=== PATIENT | female | born 1995 | race Caucasian/White ===

== ENCOUNTER 2022-03-31 09:37 | Outpatient (CLI) | payer BC, SELFPAY ==
--- NOTE | 2022-03-31 09:45 | CRLHL7_ITS ---
For Patients: As a result of the Century Cures Act, medical imaging exams and procedure reports are released immediately into your electronic medical record. You may view this report before your referring provider. If you have questions, please contact your health care provider. CLINICAL HISTORY: First trimester screening. TECHNIQUE: Real time solorio scale imaging of the fetus was performed using a transabdominal approach. FINDINGS: Sonographic imaging demonstrates a twin living intrauterine gestation. TWIN A: The fetus demonstrates a regular cardiac rate measuring 147 beats per minute. The crown rump length measurement of 7.5 cm corresponds to a gestation of 13 weeks 4 days. A nuchal translucency measurement of 2.1 mm was obtained for screening purposes. TWIN B: The fetus demonstrates a regular cardiac rate measuring 145 beats per minute. The crown rump length measurement of 7.6 cm corresponds to a gestation of 13 weeks 5 days. A nuchal translucency measurement of 2.0 mm was obtained for screening purposes. IMPRESSION: Nuchal translucency measurement obtained for first trimester screen. Dictated by Nba Siu MD @ 03/31/2022 11:56:44 AM (Electronically Signed)
== END 2022-03-31 09:38 | disposition home or self-care (01) ==
LOC: US 09:39
PROVIDERS: Visit Provider Advanced Practice Midwife
DX: O09.511 Supervision of elderly primigravida, first trimester (principal); O30.049 Twin pregnancy, dichorionic/diamniotic, unspecified trimester; Z3A.13 13 weeks gestation of pregnancy
CPT/HCPCS: 36415; 76801; 76802; 76813; 76814; 84163; 84702

== ENCOUNTER 2022-05-12 17:05 | Outpatient (CLI) | payer BC, SELFPAY ==
--- OUTSIDE RECORDS SUMMARY | 2022-05-12 17:07 | XMS_ITS | Encounter Summary ---
:1995 Author Organization [facility] Address [address] [place] [address] Care Team Providers Name Role Phone Elsewhere, Pcp Primary Care Provider Unavailable Encounter Details Date Type Department Care Team Description 01/18/2021 Admin Visit Department of Family Medicine, [address] [address] [facility] [phone] Social History Tobacco Use Types Packs/Day Years Used Date Smoking Tobacco: Never Smokeless Tobacco: Never Sex Assigned at Date Recorded Not on file documented as of this encounter Last Filed Vital Signs Vital Sign Reading Time Taken Comments Blood Pressure - - Pulse - - Temperature - - Respiratory Rate - - Oxygen Saturation - - Inhaled Oxygen Concentration - - Weight - - Height 171 cm (5' 7.32) 01/18/2021 11:36 AM CDT Body Mass Index - - documented in this encounter Plan of Treatment Not on filedocumented as of this encounter Visit Diagnoses Not on filedocumented in this encounter Additional Health Concerns Infection Onset Date Last Indicated Resolved Time COVID19 Pending 01/18/2021 01/18/2021 01/19/2021 12:42 PM CDT Assessment Noted Time PHQ-9 Depression Total Score: 1 01/10/2019 8:39 AM CDT documented as of this encounter Care Teams Tentering Machine Off Bearer Relationship Specialty Start Date End Date Elsewhere, Pcp PCP - General Internal Medicine 01/10/19 documented as of this encounter
--- OUTSIDE RECORDS SUMMARY | 2022-05-12 17:07 | XMS_ITS | Encounter Summary ---
:1995 Author Organization [facility] Address [address] [place] [address] Care Team Providers Name Role Phone Unavailable Primary Care Provider Unavailable Encounter Details Date Type Department Care Team Description 11/05/2009 Hospital Encounter HX [facility] Maria Guadalupe Rios M.D. [address] [facility], [place] [address] (Wo rk) Social History Tobacco Use Types Packs/Day Years Used Date Smoking Tobacco: Never Assessed Sex Assigned at Date Recorded Not on file documented as of this encounter Plan of Treatment Not on filedocumented as of this encounter Visit Diagnoses Not on filedocumented in this encounter
--- OUTSIDE RECORDS SUMMARY | 2022-05-12 17:07 | XMS_ITS | Encounter Summary ---
:1995 Author Organization [facility] Address [address] [place] [address] Care Team Providers Name Role Phone Unavailable Primary Care Provider Unavailable Reason for Visit Reason Comments Med Refill Encounter Details Date Type Department Care Team Description 08/30/2017 Refill Department of [facility] Hans Varghese M.D. Med Refill Medicine, [facility], [address] [place] [address] [address] [place] [address] [phone] Social History Tobacco Use Types Packs/Day Years Used Date Smoking Tobacco: Never Sex Assigned at Date Recorded Not on file documented as of this encounter Miscellaneous Notes Telephone Encounter - Michelle Varghese M.D. - 08/31/2017 1:36 PM SHOEMAKING CUTTER Patient should be on Tri-Linyah. New script sent. Thanks! Dr. Varghese MAKING CUTTER Telephone Encounter - Shima Hernandes - 08/30/2017 1:36 PM CST CLARIFICATION REQUESTED: Nurse Review: Pharmacy Communication Provider: Debora Varghese Pharmacy Comment: Requested Prescription NORG/E ES ([id number]) TB 28 ONLY TAKE 1 TABLET DAILY QTY 3: REFILLS 3 ---- OR ---- Recently Filled Prescription: TRI-LINYAH TABS EDITA 28'S ONLY TAKE 1 TABLET DAILY (Prescriber Celestina) Pharmacy: [facility] MAKING CUTTER documented in this encounter Plan of Treatment Not on filedocumented as of this encounter Visit Diagnoses Not on filedocumented in this encounter Additional Health Concerns Assessment Noted Time PHQ-9 Depression Total Score: 1 06/09/2017 9:35 AM CDT documented as of this encounter
--- OUTSIDE RECORDS SUMMARY | 2022-05-12 17:07 | XMS_ITS | Encounter Summary ---
:1995 Author Organization [facility] Address [address] [place] [address] Care Team Providers Name Role Phone Unavailable Primary Care Provider Unavailable Reason for Visit Reason Comments Communication Encounter Details Date Type Department Care Team Description 12/02/2017 Clinical Communication Department of Harry Andino Communication Medicine, [facility], [facility], [place] [phone] [place] [address] (Work) [address] [place] [address] Social History Tobacco Use Types Packs/Day Years Used Date Smoking Tobacco: Never Smokeless Tobacco: Never Sex Assigned at Date Recorded Not on file documented as of this encounter Plan of Treatment Not on filedocumented as of this encounter Visit Diagnoses Not on filedocumented in this encounter Additional Health Concerns Assessment Noted Time PHQ-9 Depression Total Score: 16 12/02/2017 10:[address] documented as of this encounter
--- OUTSIDE RECORDS SUMMARY | 2022-05-12 17:07 | XMS_ITS | Encounter Summary ---
:1995 Author Organization [facility] Address [address] [place] [address] Care Team Providers Name Role Phone Unavailable Primary Care Provider Unavailable Reason for Visit Reason Comments Med Refill Encounter Details Date Type Department Care Team Description 11/21/2018 Refill Department of Family Medicine, [facility] sreekanth, Pcp Med Refill Clinic, in [place], [place] [address] [place] [address] [facility] [phone] Social History Tobacco Use Types Packs/Day Years Used Date Smoking Tobacco: Never Smokeless Tobacco: Never Sex Assigned at Date Recorded Not on file documented as of this encounter Miscellaneous Notes Telephone Encounter - Blanca Gordon C.M.A. - 11/24/2018 8:56 AM HOPPER FILLER Left a brief message informing the patient that her medication has been refilled, but she will need to establish care with a provider for further refills. Gave her the number to call to make the appointment. ER FILLER Telephone Encounter - Missy Wilks APRN, C.N.P., M.S.N. - 11/21/2018 12:53 PM CST Please advise patient to make an appointment with her PCP for further fills. I have authorized 60 days until she can be seen. ER FILLER documented in this encounter Plan of Treatment Not on filedocumented as of this encounter Visit Diagnoses Not on filedocumented in this encounter Additional Health Concerns Assessment Noted Time PHQ-9 Depression Total Score: 16 12/02/2017 10:[address] documented as of this encounter
--- OUTSIDE RECORDS SUMMARY | 2022-05-12 17:07 | XMS_ITS | Encounter Summary ---
:1995 Author Organization [facility] Address [address] [place] [address] Care Team Providers Name Role Phone Elsewhere, Pcp Primary Care Provider Unavailable Reason for Visit Reason Comments COVID Inquiry Encounter Details Date Type Department Care Team Description 01/18/2021 Clinical Communication Department of Prescheduling, [place] [facility] Inquiry Urology in [place], [place] [address] [place] [address] Social History Tobacco Use Types Packs/Day Years Used Date Smoking Tobacco: Never Smokeless Tobacco: Never Sex Assigned at Date Recorded Not on file documented as of this encounter Miscellaneous Notes Telephone Encounter - Micaela Martin - 01/18/2021 10:02 AM CDT What is the purpose of the call?: Symptomatic (Calling PCP Office) Calling [place] PCP Office What region is the patient calling from? : [place] Have you tested positive for COVID-19 in the last 20 days? : No In the past 14 days are any of the following symptoms new to you and not related to an existing health condition?: New sore throat, New cough, New shortness of breath Because of symptoms, transfer patient to: : [place] COVID Nurse Line (End Screening) Symptom Onset Date of symptom onset: 01/11/21 Testing Recommendation Endpoint Is testing recommended? : Transferred to nursing call line Plan: Endpoint recommendation: Transferred to Nursing/COVID Line/Care Team *Reminder if sending patient for testing in [facility] or [facility], route encounter to the correct testing pool. documented in this encounter Plan of Treatment Not on filedocumented as of this encounter Visit Diagnoses Not on filedocumented in this encounter Additional Health Concerns Assessment Noted Time PHQ-9 Depression Total Score: 1 01/10/2019 8:39 AM CDT documented as of this encounter Care Teams Patient Consumer Marketer Relationship Specialty Start Date End Date Elsewhere, Pcp PCP - General Internal Medicine 01/10/19 documented as of this encounter
--- OUTSIDE RECORDS SUMMARY | 2022-05-12 17:07 | XMS_ITS | Encounter Summary ---
:1995 Author Organization [facility] Address [address] [place] [address] Care Team Providers Name Role Phone Elsewhere, Pcp Primary Care Provider Unavailable Reason for Visit Reason Comments COVID Nurse Line Encounter Details Date Type Department Care Team Description 01/18/2021 Clinical Communication Division of Kathy Denney COVI D Nurse Vickie [facility] Medicine, [place], [place] [address] [place] [address] Social History Tobacco Use Types Packs/Day Years Used Date Smoking Tobacco: Never Smokeless Tobacco: Never Sex Assigned at Date Recorded Not on file documented as of this encounter Miscellaneous Notes Telephone Encounter - Kathy Denney RLino - 01/18/2021 10:09 AM CDT COVID-19 Nurse Line Screening ASSESSMENT Region Select appropriate region: : [place] Age Pathway Select approprite pathway: : Adult Have you had close contact* with a person who has a LABORATORY CONFIRMED case of COVID-19 in the past 14 days?: No (Continue Screening) In the last 48 hours, have you had a fever* OR symptoms that are unrelated to a preexisting illness?: New cough, New shortness of breath, New sore throat Have you received a COVID-19 vaccine in the last 72 hours? : No vaccine received (Continue Screening) Do you have any of the following urgent symptoms?: No urgent symptoms noted (Continue Screening) (noisy breathing decline ED) Have you tested positive for COVID-19 in the last 45 days?: No (Continue Screening) Are ALL the following criteria met: age between 18 to 75 yrs, main symptom is a sore throat with duration of 24 hrs to 7 days, onset of sore throat not associated with new upper respiratory symptoms*? : Yes, COVID + Strep testing is recommended (End Screening) Symptom Onset Date of symptom onset: 01/12/21 Testing Recommendation Endpoint Is testing recommended? : Recommended to test PLAN Endpoint recommendation: Screening positive, testing indicated, advised to be swabbed for COVID-19 and Group A Strep (age 3 - 75 only), sent to [facility] located at [address] [place] [address]. The entrance is on the north side of the building. You must call [phone] during the hours of 7am to 6 pm (M-F) or 9am to 4 pm (Sat and Sun) for an appointment time. You can also schedule via your Patient Online Services account. Testing hours are 8 am to 12 noon every day. When you arrive at the testing site: Remain in your vehicle and check-in by calling the number listed on the signage at the testing site or provided to you at the time you schedule your testing appointment. and Please avoid using public transpor tation per CDC recommendation. If you do not have personal transportation please self-quarantine until a personal transportation option is available. Pt stated she is 31 weeks and she is experiencing SOB with movement and noisy breathing. Decline ED for noisy breathing. Call transfer to [facility] triage nurse for further evaluation. Care Points: -Wash hands frequently with soap and water for at least 20 seconds -If soap and water are not available, use a hand corporate claims examiner -Avoid touching your eyes, nose and mouth. -Clean and disinfect high-touch surfaces routinely. -Wear a mask over your nose and mouth. A cloth face cover is not a substitute for social distancing -Continue to keep about 6 feet between yourself and others. -Avoid public areas and public transportation. -Find new ways to connect with family and friends, get support and share feelings. -Seek emergent care if any of the following occur Trouble breathing Bluish lips or face Persistent pain or pressure in the chest New confusion or inability to rouse. -Notify your regular care provider of any new or worsening symptoms. Symptomatic Carepoints: Separate yourself from others and stay in a specific sick room if able. Avoid sharing personal or household items. Rest. Hydrate. Take Acetaminophen/Ibuprofen as needed to control fever and muscles aches. Use over the counter medications as needed for other symptoms. If you have received a negative COVID-19 test result and continue to have new or worsening symptoms after 72 hours please call the COVID Nurse Line to assess if you need repeat testing or reach out to your Primary Care Provider for guidance. Education: Patient/caregiver able to teach back Patient agreeable to plan of care: Yes The following references were used: [facility] novel coronavirus (COVID- 19) resources CDC web site https://www.cdc.gov/coronavirus/2019-ncov/summary.html Nursing judgement documented in this encounter Plan of Treatment Not on filedocumented as of this encounter Visit Diagnoses Not on filedocumented in this encounter Additional Health Concerns Assessment Noted Time PHQ-9 Depression Total Score: 1 01/10/2019 8:39 AM CDT documented as of this encounter Care Teams Geophysical Manager Relationship Specialty Start Date End Date Elsewhere, Pcp PCP - General Internal Medicine 01/10/19 documented as of this encounter
--- OUTSIDE RECORDS SUMMARY | 2022-05-12 17:07 | XMS_ITS | Encounter Summary ---
:1995 Author Organization [facility] Address [address] [place] [address] Care Team Providers Name Role Phone Unavailable Primary Care Provider Unavailable Reason for Visit Reason Comments Earache x 3-4 days - now cant hear o ut of right ear Encounter Details Date Type Department Care Team Description 07/20/2018 Office Visit Urgent Care in [place] Bilateral (Primary Dx); [place], [place] Shea Rodriguez APRN, Otitis Media Right [address] C.N[place]P., M.S.N. [place], [place] [address] [address] [place], [place] [phone] (Wo rk) Social History Tobacco Use Types Packs/Day Years Used Date Smoking Tobacco: Never Smokeless Tobacco: Never Sex Assigned at Date Recorded Not on file documented as of this encounter Last Filed Vital Signs Vital Sign Reading Time Taken Comments Blood Pressure 107/66 07/20/2018 9:25 AM CDT Pulse 74 07/20/2018 9:25 AM CDT Temperature 36.7 ??C (98.1 ??F) 07/20/2018 9:25 AM CDT Respiratory Rate 16 07/20/2018 9:25 AM CDT Oxygen Saturation - - Inhaled Oxygen Concentration - - Weight 73.8 kg (162 lb 11.2 oz) 07/20/2018 9:25 AM CDT Height - - Body Mass Index - - documented in this encounter Progress Notes Shea [place] APRN - 07/20/2018 9:00 AM CDT CHIEF COMPLAINT/ REASON FOR VISIT Mercedes Snell is a 23 y.o. female that presents with right ear plugging and discomfort. Patienthas chronic history ear infections. She feels she may have another infection. She does have a problem with wax buildup. She did try using wax remover but it was unsuccessful. She tried using a Q-tip last night and that is when the pain started. Denies any recent fevers, chills, headache, neck pain, chest pain, shortness of breath, abdominal pain, nausea, vomiting, or diarrhea. Current Outpatient Prescriptions: ??? FLUoxetine (for_PROzac) 20 mg capsule, Take 1 capsule (20 mg total) by mouth daily., Disp: 90 capsule, Rfl: 3 ??? norgestimate-ethinyl estradiol (TRI-LINYAH) 0.18 mg/0.215 mg/0.25 mg-35 mcg (28) per tablet, Take 1 tablet by mouth daily., Disp: 28 tablet, Rfl: 11 ??? amoxicillin (AMOXIL) 875 mg tablet, Take 1 tablet (875 mg total) by mouth every 12 (twelve) hours for 10 days., Disp: 20 tablet, Rfl: 0 ??? ofloxacin (FLOXIN) 0.3 % otic solution, Administer 5 drops into the right ear 2 (two) times a day for 10 days., Disp: 5 mL, Rfl: 0 No Known Allergies SYSTEMS REVIEW Negative except for pertinent positives in HPI PAST MEDICAL/SURGICAL HISTORY See EMR history and procedures. SOCIAL HISTORY Reviewed. No changes. FAMILY HISTORY Reviewed. No changes. Vitals: 07/20/18 0925 BP: 107/66 Pulse: 74 Resp: 16 Temp: 36.7 ??C GENERAL: Well appearing adult. No distress. HEENT: Ears: Initially unable to visualize bilateral tympanic membranes due to wax impaction. Statuspost ear irrigation right tympanic membrane with severe erythema canal with erythema no exudate. Left tympanic membrane and canal normal. No pain over bilateral tragi. Nose: Bilateral nasal turbinates 2+, pink and moist. Mouth/throat: Oropharynx without injection, erythema, edema or exudate. Tongue moist. NECK: Supple. Trachea midline. No lymphadenopathy. CARDIAC: Regular rate and rhythm. Normal S1, S2. No murmurs, rubs, or clicks. LUNGS: Lungs clear without wheezing, rhonchi, or rales. ABDOMEN: Soft. No tenderness on palpation. Normoactive bowel sounds. IMPRESSION/PLAN 1. Otitis media right-amoxicillin prescribed for infection. Education provided regarding otitis media and home care discussed. Education regarding medication, administration, and side effects discussed. Strongly encouraged patient to follow up with primary care provider if symptoms did not improve or worsened over the next 5 to 7 days. Go to ER if patient develops high fever, chills, headache, neck pain, chest pain, shortness of breath, abdominal pain, nausea, vomiting, or diarrhea. Patient verbalized good understanding of these instructions. 2. Cerumen impacted bilateral-irrigation performed bilaterally by nursing staff with complete success. The patient tolerated well. There is some mild blood after the right ear was flushed. This was easily stopped with pressure. This note has been written using fluency direct voice recognition dictation. Typographical errors may occur. For any concerns regarding accuracy or clarification of this note, please contact the author. documented in this encounter Plan of Treatment Scheduled Orders Name Type Priority Associated Diagnoses Order S chedule Ear cerumen removal Procedures Routine Cerumen Impacted Orde red: 07/20/2018 Bilateral documented as of this encounter Visit Diagnoses Diagnosis Cerumen Impacted Bilateral - Primary Otitis Media Right documented in this encounter Additional Health Concerns Assessment Noted Time PHQ-9 Depression Total Score: 16 12/02/2017 10:[address] documented as of this encounter
--- OUTSIDE RECORDS SUMMARY | 2022-05-12 17:07 | XMS_ITS | Encounter Summary ---
:1995 Author Organization [facility] Address [address] [place] [address] Care Team Providers Name Role Phone Elsewhere, Pcp Primary Care Provider Unavailable Reason for Visit Reason Comments COVID Nurse Line Encounter Details Date Type Department Care Team Description 01/18/2021 Nurse Triage Department of Family Raquel Crow COVI D Nurse Line Medicine, [facility], R.N. in [place], [place] [address] [place] [address] Social History Tobacco Use Types Packs/Day Years Used Date Smoking Tobacco: Never Smokeless Tobacco: Never Sex Assigned at Date Recorded Not on file documented as of this encounter Miscellaneous Notes Telephone Encounter - Raquel Crow R.N. - 01/18/2021 10:25 AM CDT Chief Complaint / Reason for Call Patient is a 25 y.o. female calling regarding COVID Nurse Line. Assessment Concern: Has been screened by COVID-19 nurse as wants COVID testing and is calling to schedule test for today documented in this encounter Plan of Treatment Not on filedocumented as of this encounter Visit Diagnoses Not on filedocumented in this encounter Additional Health Concerns Assessment Noted Time PHQ-9 Depression Total Score: 1 01/10/2019 8:39 AM CDT documented as of this encounter Care Teams Mechanical Engineering Lecturer Relationship Specialty Start Date End Date Elsewhere, Pcp PCP - General Internal Medicine 01/10/19 documented as of this encounter
--- OUTSIDE RECORDS SUMMARY | 2022-05-12 17:07 | XMS_ITS | Encounter Summary ---
:1995 Author Organization [facility] Address [address] [place] [address] Care Team Providers Name Role Phone Elsewhere, Pcp Primary Care Provider Unavailable Reason for Visit Reason Comments Medication Visit Appointment Request (Routine) - Closed Specialty Diagnoses / Procedures Referred By Contact Refer red To Contact Family Medicine Referral ID Status Reason Start Date Expiration Date Visits Requ ested Visits Authorized [id number] Closed 12/18/2018 12/18/2019 1 1 Encounter Details Date Type Department Care Team Description 01/10/2019 Office Visit Department of [facility] Michelle Varghese Generalized Disorder (Primary Dx); Medicine, Kannan Mcdonald M.D. Counseling Control; Clinic, in [place], [address] Pap Smear Examination; [place], [place] Screening For Venereal Disea se [address] [address] [place], [place] [phone] (Work) [phone] Social History Tobacco Use Types Packs/Day Years Used Date Smoking Tobacco: Never Smokeless Tobacco: Never Sex Assigned at Date Recorded Not on file documented as of this encounter Last Filed Vital Signs Vital Sign Reading Time Taken Comments Blood Pressure 100/60 01/10/2019 8:37 AM CDT Pulse 64 01/10/2019 8:37 AM CDT Temperature 36.7 ??C (98.1 ??F) 01/10/2019 8:37 AM CDT Respiratory Rate 16 01/10/2019 8:37 AM CDT Oxygen Saturation - - Inhaled Oxygen Concentration - - Weight 75.6 kg (166 lb 10.7 oz) 01/10/2019 8:37 AM CDT Height - - Body Mass Index - - documented in this encounter Progress Notes Michelle Varghese M.D. - 01/10/2019 9:00 AM CDT SUBJECTIVE CHIEF COMPLAINT / REASON FOR VISIT Mercedes Snell is a 23 y.o. female who presents for evaluation of Medication Visit. HISTORY OF PRESENT ILLNESS Mercedes Snell is a 23 year old female with past medical history significant for generalized anxiety disorder who presents to clinic today for medication recheck. Patient has been doing well on current dose of Prozac 20 mg daily. She feels mood is very well controlled with minimal side effects from themedication. She would like to continue at current dose. Patient is currently on oral contraceptive pills which she would like to update today. Of note she will be getting in 24 days and wondersabout her medications if she were to think about becoming . Lastly, patient is due for pap smear in immunization update. She would like to complete both of these today. Patient denies any vaginal symptoms of itching, burning, spotting, pain, or discharge. She is otherwise feeling at her baseline health. No further concerns today. REVIEW OF SYSTEMS The following systems were negative: Constitutional, Skin, Eyes, ENT, CV, GI, , Hematologic, Musculoskeletal, Neuro, Psych PAST MEDICAL HISTORY Past Medical History: Diagnosis Date ??? Acne 02/03/2010 ??? Anxiety Generalized Disorder 01/16/2019 PAST SURGICAL HISTORY No past surgical history on file. SOCIAL HISTORY Social History Social History ??? Marital status: Single Spouse name: N/A ??? Number of children: N/A ??? Years of education: N/A Occupational History ??? Not on file. Social History Main Topics ??? Smoking status: Never Smoker ??? Smokeless tobacco: Never Used ??? Alcohol use Not on file ??? Drug use: Unknown ??? Sexual activity: Not on file Other Topics Concern ??? Not on file Social History Narrative ??? No narrative on file FAMILY HISTORY No family history on file. ALLERGIES No Known Allergies CURRENT MEDICATIONS Current Outpatient Prescriptions: ??? FLUoxetine (PROzac) 20 mg capsule, Take 1 capsule (20 mg total) by mouth daily., Disp: 30 capsule, Rfl: 1 ??? norgestimate-ethinyl estradiol (TRI-LINYAH) 0.18 mg/0.215 mg/0.25 mg-35 mcg (28) per tablet, Take 1 tablet by mouth daily., Disp: 28 tablet, Rfl: 11 OBJECTIVE BP 100/60 (BP Location: Right arm, Cuff Size: Regular) Pulse 64 Temp 36.7 ??C (Temporal) Resp 16 Wt 75.6 kg PHYSICAL EXAM Constitutional: She is oriented to person, place, and time. She appears well- developed and well-nourished. No distress. HENT: Head: Normocephalic and atraumatic. Eyes: Conjunctivae and EOM are normal. Pupils are equal, round, and reactive to light. Right eye exhibits no discharge. Left eye exhibits no discharge. Genitourinary: There is no rash, tenderness or lesion on the right labia. There is no rash, tenderness or lesion on the left labia. Cervix exhibits no motion tenderness, no discharge and no friability.No erythema, tenderness or bleeding in the vagina. No foreign body in the vagina. No signs of injuryaround the vagina. No vaginal discharge found. Neurological: She is alert and oriented to person, place, and time. She exhibits normal muscle tone.Coordination normal. Skin: She is not diaphoretic. Psychiatric: She has a normal mood and affect. Her behavior is normal. Judgment and thought content normal. Vitals reviewed. The following screenings were completed: PHQ-9 Total Score (max 27): 1 (01/10/19 0839) PHQ-2 Score: 0 ASSESSMENT / PLAN #1 Anxiety Generalized Disorder - Patient feels symptoms well controlled on Prozac 20 mg daily. Tolerating well. PHQ-9 of 1. - She has questions about future on this medication. Discussed that it is a category C medication and sometimes used in if risks outweigh benefits.If patient were to become , recommend clinic visit to discuss plan going forward. #2 Counseling Control - Renewed patient's current oral contraceptive pill at this time. #3 Preventive care - patient due for pap smear which was collected today with reflex to HPV testing. - Screening gonorrhea/chlamydia testing completed today as well. - updated flu and tetanus immunization today. Michelle Varghese M.D. documented in this encounter Plan of Treatment Not on filedocumented as of this encounter Procedures Procedure Name Priority Date/Time Associated Diagnosis Comme nts THINPREP SCREEN HPV Routine 01/10/2019 9:51 AM Pap Smear Re sults for this REFLEX CDT Examination procedure are i n the results section. CHLAMYDIA/GONORRHOE Routine 01/10/2019 9:51 AM Screening For R esults for this AE AMPLIFIED RNA CDT Venereal Disease procedu re are in the results section. documented in this encounter Results Chlamydia / Gonorrhoeae Amplified RNA (01/10/2019 9:51 AM CDT) Patholo gist Method Time Signature Source Swab, Vagina 01/10/2019 [facility] 6:18 PM CDT [facility] Chlamydia Negative Negative 01/10/2019 [facility] trachomatis 6:18 PM CDT [facility] RNA [facility] Comment: ----ADDITIONAL INFORMATION---- This report is intended for use in clini perfecto monitoring and management of patients. It is not in tended for use in medical-legal applications. Source Swab, Vagina 01/10/2019 6:18 PM [facility] CDT [facility] Neisseria gonorrhoeae Negative Negative 01/10/2019 6:18 PM [facility] amplified RNA CDT [facility] Comment: ----ADDITIONAL INFORMATION---- This report is intended for use in clini perfecto monitoring and management of patients. It is not in tended for use in medical-legal applications. Specimen Anatomical Collection Method Collection Time Receive d Time (Source) Location / / Volume Laterality Varies (Vagina) 01/10/2019 9:51 AM 2018 2:14 CDT PM CDT Michelle Varghese M.D. LAB MICROBIOLOGY - GENERAL O RDERABLES Performing Organization Address City/State/ZIP Code Phon e Number [facility] [address] [place] [address] LAB ThinPrep Screen HPV Reflex (01/10/2019 9:51 AM CDT) Component Value Ref Test Analysis Performed Pathologis t Range Method Time At Signature 01/11/2019 [facility] 2:42 PM HEALTH CDT [facility] Report SCOTTY Hunt(ASCP) 01/11/2019 [facility] electronically I verify that I have examined all relevant slides/ma terials 2:42 PM HEALTH signed by for the specimen(s) and rendered or confirmed the diagnosi s. CDT [facility] Gross Description Received specimen 01/11/2019 [facility] in a ThinPrep 2:42 PM HEALTH vial. CDT [facility] Pap Test Source Cervical/Endocervi 01/11/2019 [facility] perfecto 2:42 PM HEALTH CDT [facility] Clinical History None 01/11/2019 [facility] 2:42 PM HEALTH CDT [facility] Menstrual unknown 01/11/2019 [facility] Status(LMP, PM, 2:42 PM HEALTH ) CDT [facility] Hormone Oral 01/11/2019 [facility] Therapy/Contracep Contraceptives 2:42 PM HEALTH tives CDT [facility] Interpretation Cervical/Endocervical ??(ThinPrep): 01/11/2019 [facility] Satisfactory for Evaluation 2:42 PM HE ALTH Endocervical/transformation zone components absent CDT SYSTEM- Negative for Intraepithelial Lesion or Malignancy [facility] Specimen Anatomical Collection Method Collection Time Receive d Time (Source) Location / / Volume Laterality Varies 01/10/2019 9:51 AM 9 2:25 (Cervix/Endocerv CDT PM CDT ix) Narrative This result has an attachment that is no t available. Michelle Varghese M.D. LAB PAP PATHDX ORDERABLES Performing Organization Address City/State/ZIP Code Phon e Number [facility] [address] [place] [address] CYTOLOGY documented in this encounter Visit Diagnoses Diagnosis Anxiety Generalized Disorder - Primary Counseling Control Pap Smear Examination Screening For Venereal Disease documented in this encounter Additional Health Concerns Assessment Noted Time PHQ-9 Depression Total Score: 1 01/10/2019 8:39 AM CDT documented as of this encounter Care Teams Manager Web Application Relationship Specialty Start Date End Date Elsewhere, Pcp PCP - General Internal Medicine 01/10/19 documented as of this encounter
--- OUTSIDE RECORDS SUMMARY | 2022-05-12 17:07 | XMS_ITS | Encounter Summary ---
:1995 Author Organization [facility] Address [address] [place] [address] Care Team Providers Name Role Phone Unavailable Primary Care Provider Unavailable Encounter Details Date Type Department Care Team Description 12/01/2017 Documentation Department of [facility] Jenise Hawkins, Medicine, [facility], C.M.AJohana in [facility] [address] [place] [address] [facility] [phone] Social History Tobacco Use Types Packs/Day Years Used Date Smoking Tobacco: Never Smokeless Tobacco: Never Sex Assigned at Date Recorded Not on file documented as of this encounter Progress Notes Jenise Hawkins, CJohanaM.A. - 12/01/2017 3:56 PM CST ASSESSMENT / PLAN Patient needs to complete phq-9 and luis-7 for further assessment. [employer] MAN documented in this encounter Plan of Treatment Not on filedocumented as of this encounter Visit Diagnoses Not on filedocumented in this encounter Additional Health Concerns Assessment Noted Time PHQ-9 Depression Total Score: 1 06/09/2017 9:35 AM CDT documented as of this encounter
--- OUTSIDE RECORDS SUMMARY | 2022-05-12 17:07 | XMS_ITS | Encounter Summary ---
:[address] [facility] Address [address] [place] [address] Care Team Providers Name Role Phone Unavailable Primary Care Provider Unavailable Encounter Details Date Type Department Care Team Description 12/02/2017 Orders Only [facility], Leti Bell M.D. Medicine, [facility], [address] [place] [address] [place] [address] [facility] [phone] Social History Tobacco Use Types Packs/Day Years [...]
--- OUTSIDE RECORDS SUMMARY | 2022-05-12 17:07 | XMS_ITS | Encounter Summary ---
:1995 Author Organization [facility] Address [address] [place] [address] Care Team Providers Name Role Phone Elsewhere, Pcp Primary Care Provider Unavailable Encounter Details Date Type Department Care Team Description 01/21/2021 Orders Only [facility] PCP [facility] Sa sander Valenzuela M.D. [address] [place], [place] [phone] (Wo rk) Social History Tobacco Use Types [...] documented as of this encounter Care Teams Flatwork Finisher Hand Relationship Specialty Start Date End Date Elsewhere, Pcp PCP - General Internal Medicine 01/10/19 documented as of this encounter
--- OUTSIDE RECORDS SUMMARY | 2022-05-12 17:07 | XMS_ITS | Clinical Summary ---
:1995 Author Organization [facility] Address [address] [place] [address] Care Team Providers Name Role Phone Elsewhere, Pcp Primary Care Provider Unavailable Source Comments Patient records contain information from all sites at [facility]. For routine questions regarding patient records, call [phone] during business hours, M-F 8:00 AM - 5:00 PM Central Time. Record requests for emergency care only can be directed to [phone] at any time.[facility] Allergies No known active allergies Medications Medication Sig Dispensed Refills Start Date End Date Status norgestimate-ethinyl Take 1 tablet by 28 tablet 11 01/10/2019 Active estradiol mouth daily. (TRI-LINYAH) 0.18 mg/0.215 mg/0.25 mg-35 mcg (28) per tablet FLUoxetine (PROzac) Take 1 capsule (20 90 capsule 3 03/12/2019 Active 20 mg capsule mg total) by mouth daily. 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 Immunizations Name Administration Dates Next Due Td Preservative Free (TENIVAC, DECAVAC) 01/10/2019 influenza vaccine quad (FLUZONE/FLUARIX) (6 months and 01/10 older)(PF) Social History Tobacco Use Types Packs/Day Years Used Date Smoking Tobacco: Never Smokeless Tobacco: Never Sex Assigned at Date Recorded Not on file Last Filed Vital Signs Vital Sign Reading Time Taken Comments Blood Pressure 97/64 03/03/2019 11:52 AM CDT Pulse 89 03/03/2019 11:52 AM CDT Temperature 36.7 ??C (98 ??F) 03/03/2019 11:52 AM CDT Respiratory Rate 20 03/03/2019 11:52 AM CDT Oxygen Saturation 100% 03/03/2019 11:52 AM CDT Inhaled Oxygen Concentration - - Weight 74.4 kg (164 lb 0.4 oz) 03/03/2019 11:52 AM CDT Height 171 cm (5' 7.32) 01/18/2021 11:36 AM CDT Body Mass Index - - Plan of Treatment Health Maintenance Due Date Last Done Comments HIV Screening 1995 Hepatitis B Vaccines (1 of 1994 3 - 3-dose series) Hepatitis C Screening 1995 COVID-19 Vaccine (#1) 1995 Depression Screening 09/26/2021 (Annual PHQ-2) Cervical Cancer Screening 01/10/2022 01/10/2019 Influenza Vaccine (#1) 2022 08/11/2020, 01/10/2019 DTaP,Tdap,and Td Vaccines 01/09/2031 01/09/2021, 01/10/2019 , (9 - Td or Tdap) 04/17/2007, Additional history exists Pneumococcal vaccine (0-64 Aged Out No lo nger eligible years) based on patient 's age to complete this topic Insurance Payer Benefit Plan Subscriber ID Effective Dates Phone Address Type / Group BLUE [facility] [id number] 2020-Prese [phone] [address] [address] PPO BLUE [facility] [address] [place] [address] Care Teams Farm Demonstrator Relationship Specialty Start Date End Date Elsewhere, Pcp PCP - General Internal Medicine 01/10/19
--- OUTSIDE RECORDS SUMMARY | 2022-05-12 17:07 | XMS_ITS | Encounter Summary ---
:1995 Author Organization [facility] Address [address] [place] [address] Care Team Providers Name Role Phone Unavailable Primary Care Provider Unavailable Encounter Details Date Type Department Care Team Description 06/09/2017 Hospital Encounter [facility] Jeri Varghese M.D. [address] [place] [address] (Wo rk) Social History Tobacco Use Types Packs/Day Years Used Date Smoking Tobacco: Never Sex Assigned at Date Recorded Not on file documented as of this encounter Last Filed Vital Signs Vital Sign Reading Time Taken Comments Blood Pressure 98/56 06/09/2017 1:25 PM CDT Pulse 74 06/09/2017 1:25 PM CDT Temperature - - Respiratory Rate - - Oxygen Saturation - - Inhaled Oxygen Concentration - - Weight 68.3 kg (150 lb 9.2 oz) 06/09/2017 1:25 PM CDT Height - - Body Mass Index - - documented in this encounter Medications at Time of Discharge Medication Sig Dispensed Refills Start Date End Date FLUoxetine (for_PROzac) Take 1 tablet by 0 201608/24/2017 10 mg tablet mouth daily. NORGESTIMATE-ETHINYL Take 1 tablet by 0 4 08/24/2017 ESTRADIOL ORAL mouth daily. documented as of this encounter Progress Notes Keri Varghese M.D. - 06/09/2017 1:59 PM CDT FM-LE Document Contains Addenda Addendum by KERI VARGHESE MD on June 09, 2017 14:10 CDT Added to IRP: - Discussed future with patient today on this medication. Discussed that prozac is a category C medication. If she is thinking about becoming or does become at anytime, she will return for discussions on options going further. - Discussed recheck on anxiety in 6-12 months or if concerns arrise. - Patient in agreement to this plan. Modified by and Electronically Signed by: KERI VARGHESE MD On: 06/09/2017 02:10 PM CHIEF COMPLAINT/REASON FOR VISIT: Follow up anxiety HISTORY OF PRESENT ILLNESS: Patient is a 21 year old female with PMH of anxiety who presents to clinic today for a follow up of her anxiety. She is feeling well today and currently taking 10 mg of Prozac. Patient feels this medication works quite well for her and is happy with the results she has seen. She has since graduated college and has now started a new job which is going well. She has trialed Zoloft in the past, but thismedication was not as effective for her. Patient has questions about in future on this medication. PAST MEDICAL HISTORY: Anxiety SOCIAL HISTORY: Smoking: Never a smoker FAMILY HISTORY: Multiple family members with anxiety which has responded well to prozac. MEDICATIONS: Medication List Active Medications Prescribed FLUoxetine: 10 mg, 1 tab(s), PO, Daily, for 90 day(s), 90 tab(s), 3 Refill(s). norgestimate-ethinyl estradiol: 1 tab(s), PO, Daily, 84 tab(s). Medications Inactivated in the Last 72 Hours FLUoxetine: 10 mg, 1 tab(s), PO, Daily. ALLERGIES: NKA VITAL SIGNS: Temperature 37 (13:27) Systolic Blood Pressure 98 (13:27) Diastolic Blood Pressure 56 (13:27) Pulse No result SpO2 No result Respiratory Rate No result PHYSICAL EXAMINATION: GENERAL APPEARANCE: The patient is alert and oriented. No acute distress. PSYCH: Normal affect, normal insight/judgement IMPRESSION/REPORT/PLAN: #1 Generalized anxiety disorder - Patient doing quite well on the Prozac 10 mg. PHQ-9 of 1 today, JAMAAL-7 of 4 today. - We will continue on current dose of Prozac 10 mg daily. - New prescription sent. #2 Oral contraceptive use - Patient will call when she needs refills on her ortho-tricyclin. - Doing well with this medication, is a non-smoker, no history of blood bleeding/clotting disorders,no migraines. Electronically Signed By: KERI VARGHESE MD On: 06/09/2017 02:06 PM Source: [facility] POWERCHART Document Id: [id number] documented in this encounter Miscellaneous Notes Miscellaneous - Keri Varghese M.D. - 06/09/2017 2:07 PM CDT Ambulatory Discharge Medication List [facility] [address] [place], [place] [phone] Visit Information Name: AUDRA PAULINO [facility] Number: [id number] Current Date: 06/09/2017 14:07:26 Attending Provider: KERI VARGHESE MD Primary Care Provider: PCP, ELSEWHERE AUDAR PAULINO has been given the following list of medications: Your Medications It is important to take your medications as directed. Use a pill box or chart to help remind you to take your medications. Please let your doctor or nurse know if you have problems taking your medications. Medication/Strength How to Take Indications/Special Instructions/Comments/Notes for Patient Medication Changes/Routing FLUoxetine (PROzac 10 mg oral tablet) 1 Tablet(s), Oral, once a day New Routed to [facility] [address] [address] norgestimate-ethinyl estradiol (Ortho Tri-Cyclen oral tablet) 1 Tablet(s), Oral, once a day Stop Taking the Following Medications: Medication list as of 06-09-17 14:07 Attention: If you have any medications at home that are not on this list, DO NOT take them until youcontact your provider for clarification. Give a copy of your medication list to your primary care provider. Update your medication list any time medications or doses are changed and carry your medication list at all times in case of emergency. Electronically Signed By: KERI VARGHESE MD Signed On:09-JUN-2017 14:07:15 Additional Information: Source: [facility] POWERCHART Document Id: [id number] Miscellaneous - Keri Varghese M.D. - 06/09/2017 2:07 PM CDT Ambulatory Patient Summary [facility] [address] [place] [id number] Visit Information Name: AUDRA PAULINO [facility] Number: [id number] Current Date: 06/09/2017 14:07:27 Physicians Attending Provider: KERI VARGHESE MD Primary Care Provider: PCP, ELSEWHERE AUDRA PAULINO has been given the following list of follow-up instructions, medication list, and patient education materials: Follow-up Instructions Your Medications Here is a list of your medications. It is important to take your medications as directed. Use a pillbox or chart to help remind you to take your medications. Please let your doctor or nurse know if you have problems taking your medications. Medication/Strength How to Take Indications/Special Instructions/Comments/Notes for Patient Medication Changes/Routing FLUoxetine (PROzac 10 mg oral tablet) 1 Tablet(s), Oral, once a day New Routed to [facility] [address] [place] [address] norgestimate-ethinyl estradiol (Ortho Tri-Cyclen oral tablet) 1 Tablet(s), Oral, once a day Stop Taking the Following Medications: Medication list as of 06-09-17 14:07 Attention: If you have any medications at home that are not on this list, DO NOT take them until youcontact your provider for clarification. Give a copy of your medication list to your primary care provider. Update your medication list any time medications or doses are changed and carry your medication list at all times in case of emergency. Electronically Signed By: KERI VARGHESE MD Signed On:09-JUN-2017 14:07:15 Your Allergies & Intolerances Substance Reaction Symptoms Category Comments No Known Allergies Drug Your Problem List Problem Status Onset Comments Acne NOS Active Your Upcoming Appointments Date Time Location Provider No Appointments found Attention: Contact your local Clinic if further appointment detail needed. Consider Using Patient Online [facility] Patient Online [facility] is a secure online and Mobile application that lets you: ?? View lab and test results ?? View portions of your medical record including clinical notes, immunizations and discharge summaries ?? Request an appointment or medication refill ?? Review your appointment schedule ?? Send secure messages to your care team Its easy to create an account if you dont have one. Go to [email or web address] and click on Create Your Account. Then, follow the directions to complete the online form. Youll be asked for your [facility] number which you can find at the top of this document. Your Goals/Additional instructions: Source: [facility] POWERCHART Document Id: [id number] Miscellaneous - Keri Teixeira C.M.A. - 06/09/2017 1:25 PM CDT Adult Clinical Programmer Intake/History Adult Clinical Programmer Intake/History Entered On: 06/09/2017 13:27 CDT Performed On: 06/09/2017 13:25 CDT by KERI TEIXEIRA Intake Chief Complaint : Medication Refill. Temperature Oral : 37.0 DegC(Converted to: 98.6 DegF) Peripheral Pulse Rate : 74 /min Heart Rhythm : Regular Systolic Blood Pressure : 98 mmHg Diastolic Blood Pressure : 56 mmHg NIBP Mean : 70 mmHg BP Location : Right upper extremity Blood Pressure Cuff Size : Large Actual Weight : 68.3 kg(Converted to: 150 lb 9 oz) Weight Source : Standing scale Dosing Weight Clinic : 68.3 kg KERI TEIXEIRA - 06/09/2017 13:25 CDT General Info Information Given By : Patient Languages : Ukrainian Is Patient Female and 13-50 no hysterectomy : Yes Status : Patient denies Are you ? : No KERI TEIXEIRA - 06/09/2017 13:25 CDT Subjective Pain Symptoms : No KERI TEIXEIRA - 06/09/2017 13:25 CDT Dependent Habits Exposure to Tobacco Smoke : Other: none Smoking Status : Never smoker Tobacco 2A : No Tobacco Use/Currently Using : No Tobacco Use/Last 30 Days : No Tobacco Use/Last 12 months : No KERI TEIXEIRA - 06/09/2017 13:25 CDT Source: [employer] Document Id: [id number] CDT!29 Valdemar - Blanca Gordon CJohanaMJohanaAJohana - 06/09/2017 9:37 AM CDT JAMAAL-7 JAMAAL-7 Entered On: 06/10/2017 9:37 CDT Performed On: 06/09/2017 9:37 CDT by BLANCA GORDON CMA GAD7 GAD7 Feeling nervous : Several days GAD7 Not able to control worry : Not at all GAD7 Worrying too much : Several days GAD7 Trouble relaxing : Not at all GAD7 Being so restless : Not at all GAD7 Becoming easily annoyed : Several days GAD7 Feeling afraid : Several days GAD7 Total Score : 4 Problems make work, home, or dealing with others : Not difficult at all BLANCA GORDON CMA - 06/10/2017 9:37 CDT Source: [employer] Document Id: [id number] CDT!11 Valdemar - Blanca Gordon CJohanaMJohanaAJohana - 06/09/2017 9:35 AM CDT PHQ-9 PHQ-9 Entered On: 06/10/2017 9:36 CDT Performed On: 06/09/2017 9:35 CDT by BLANCA GORDON CMA PHQ-9 Little interest or pleasure in doing things : Not at all Feeling down, depressed, or hopeless : Not at all Trouble falling or staying asleep, or sleeping too much : Not at all Feeling tired or having little energy : Not at all Poor appetite or overeating : Not at all Feeling bad about yourself or that you are a failure : Several days Trouble concentrating on things : Not at all Moving or speaking slowly; restless or fidgety : Not at all Thoughts that you would be better off /hurting self : Not at all PHQ-9 Calculated Score : 1 Problems make work, home, or dealing with others : Not difficult at all BLANCA GORDON [facility] - 06/10/2017 9:35 CDT Source: [employer] Document Id: [id number] CDT!13 documented in this encounter Plan of Treatment Not on filedocumented as of this encounter Visit Diagnoses Not on filedocumented in this encounter Additional Health Concerns Assessment Noted Time PHQ-9 Depression Total Score: 1 06/09/2017 9:35 AM CDT documented as of this encounter
--- OUTSIDE RECORDS SUMMARY | 2022-05-12 17:07 | XMS_ITS | Encounter Summary ---
:1995 Author Organization [facility] Address [address] [place] [address] Care Team Providers Name Role Phone Unavailable Primary Care Provider Unavailable Encounter Details Date Type Department Care Team Description 10/09/2016 Hospital Encounter [facility] John Gil M.D. Social History Tobacco Use Types Packs/Day Years Used Date Smoking Tobacco: Never Sex Assigned at Date Recorded Not on file documented as of this encounter Last Filed Vital Signs Vital Sign Reading Time Taken Comments Blood Pressure 107/57 10/09/2016 3:54 PM MENS LOCKER ROOM ATTENDANT Pulse 88 10/09/2016 3:54 PM MENS LOCKER ROOM ATTENDANT Temperature - - Respiratory Rate 20 10/09/2016 3:54 PM MENS LOCKER ROOM ATTENDANT Oxygen Saturation - - Inhaled Oxygen Concentration - - Weight 65.8 kg (145 lb 1 oz) 10/09/2016 3:54 PM MENS LOCKER ROOM ATTENDANT Height - - Body Mass Index - - documented in this encounter Medications at Time of Discharge Medication Sig Dispensed Refills Start Date End Date NORGESTIMATE-ETHINYL Take 1 tablet by 0 4 08/24/2017 ESTRADIOL ORAL mouth daily. documented as of this encounter Progress Notes Edgardo Gil M.D. - 10/09/2016 3:46 PM CST [id number] CHIEF COMPLAINT/REASON FOR VISIT Dysuria. HISTORY OF PRESENT ILLNESS This pleasant 21-year-old female presents with an approximately 1-week history of symptoms includinga bit of dysuria, cloudy urine, otherwise without frequency or urgency, as well as absence of back pain and temp. SYSTEMS REVIEW No other current acute cardiorespiratory, gastrointestinal or genitourinary positive. She refutes any chance of . MEDICATIONS As per EMR. ALLERGIES Negative. VITAL SIGNS As charted. PHYSICAL EXAMINATION GENERAL: Very pleasant female, in no acute distress. CARDIOVASCULAR: Regular. LUNGS: Clear. SPINE: No acute tenderness. ABDOMEN: Also soft and nontender, save for mild suprapubic tenderness. IMPRESSION/REPORT/PLAN Urologic symptoms and urinalysis consistent with urinary tract infection, including the presence of microscopic hematuria. DIAGNOSTIC: Urinalysis as above. Urine culture is pending. Have advised planning a recheck urinalysis midcycle following the treatment course. THERAPEUTIC: Awaiting culture results. [place] Macrobid as per EMR. Fluid intake is encouraged which may include cranberry juice. PATIENT EDUCATION: Reviewed the above. Follow up as discussed. Edgardo Gil M.D./ze Electronically Signed By: EDGARDO GIL MD On: 10/09/2016 05:50 PM Source: [facility] MHSDOLBEYNONRADSYS Document Id: [id number] LOCKER ROOM ATTENDANT documented in this encounter Miscellaneous Notes Miscellaneous - Edgardo Gil M.D. - 10/11/2016 8:05 AM CST Results Notification Document Contains Addenda Addendum by PAPO MADDOX LPN on October 11, 2016 17:40:12 MENS LOCKER ROOM ATTENDANT pt notified Addendum by PAPO MADDOX LPN on October 11, 2016 08:53:54 MENS LOCKER ROOM ATTENDANT lmtcb From: EDGARDO GIL MD To: Same Day Nurse; Sent: 10/11/2016 08:05:34 MENS LOCKER ROOM ATTENDANT ! Show up: 10/11/2016 08:05:34 MENS LOCKER ROOM ATTENDANT Subject: Results Notification Actions: Notify patient of results Reminder Comments: As above. DC Macrobid and switch to Septra sent to pharmacy. Results: Date Result Type Ind Result Name MBO POS Culture Urine Source: [facility] POWERCHART Document Id: [id number] Electronically signed by Narinder [facility]arm[facility] Process Improvement Consultant [id number] at 03/07/2017 9:52 PM CDT Valdemar - Edgardo Gil M.D. - 10/09/2016 4:43 PM CST Ambulatory Discharge Medication List [facility] [address] [place] [phone] Visit Information Name: AUDRA PAULINO [facility] Number: [id number] Current Date: 10/09/2016 16:43:00 Attending Provider: UNKNOWN1, PROVIDER Primary Care Provider: PCP, ELSEWHERE AUDRA PAULINO [...] Take Indications/Special Instructions/Comments/Notes for Patient Medication Changes/Routing nitrofurantoin (Macrobid 100 mg oral capsule) 1 cap, Oral, two times a day x 7 day(s) New Routed to [facility] [address] [place] [address] norgestimate-ethinyl estradiol (Ortho Tri-Cyclen oral tablet) 1 Tablet(s), Oral, once a day Stop Taking the Following Medications: Medication list as of 10-09-16 16:43 Attention: If you have any medications at home that are not on this list, DO NOT take them until youcontact your provider for clarification. Give a copy of your medication list to your primary care provider. Update your medication list any time medications or doses are changed and carry your medication list at all times in case of emergency. Electronically Signed By: EDGARDO GIL MD Signed On:09-OCT-2016 16:42:58 Additional Information: Source: [facility] POWERCHART Document Id: [id number] LOCKER ROOM ATTENDANT Valdemar - Edgardo Gil M.D. - 10/09/2016 4:43 PM CST Ambulatory Patient Summary [facility] [address] [place] [phone] Visit Information Name: UADRA PAULINO [facility] Number: [id number] Current Date: 10/09/2016 16:43:01 Physicians Attending Provider: UNKNOWN1, PROVIDER Primary Care Provider: PCP, ELSEWHERE AUDRA PAULINO [...] Take Indications/Special Instructions/Comments/Notes for Patient Medication Changes/Routing nitrofurantoin (Macrobid 100 mg oral capsule) 1 cap, Oral, two times a day x 7 day(s) New Routed to [facility] [address] [place] [address] norgestimate-ethinyl estradiol (Ortho Tri-Cyclen oral tablet) 1 Tablet(s), Oral, once a day Stop Taking the Following Medications: Medication list as of 10-09-16 16:43 Attention: If you have any medications at home that are not on this list, DO NOT take them until youcontact your provider for clarification. Give a copy of your medication list to your primary care provider. Update your medication list any time medications or doses are changed and carry your medication list at all times in case of emergency. Electronically Signed By: EDGARDO GIL MD Signed On:09-OCT-2016 16:42:58 Your Allergies & Intolerances Substance Reaction Symptoms [...] if you dont have one. Go to [email or web address] and click on Create Your Account. Then, follow the directions to complete the online form. Youll be asked for your [facility] number which you can find at the top of this document. Your Goals/Additional instructions: Source: [facility] [employer] Document Id: [id number] LOCKER ROOM ATTENDANT Miscellaneous - Spencer Suero L.P.N. - 10/09/2016 3:54 PM CST Adult Financial Engineer Intake/History Adult Financial Engineer Intake/History Entered On: 10/09/2016 15:57 MENS LOCKER ROOM ATTENDANT Performed On: 10/09/2016 15:54 MENS LOCKER ROOM ATTENDANT by SPENCER SUERO LPN Intake Chief Complaint : Cloudy urine, doesn't feel like she is emptying bladder Onset of Symptoms : Symptoms began a week ago Temperature Oral : 36.8 DegC(Converted to: 98.2 DegF) Peripheral Pulse Rate : 88 /min Respiratory Rate : 20 /min Systolic Blood Pressure : 107 mmHg Diastolic Blood Pressure : 57 mmHg NIBP Mean : 74 mmHg BP Location : Right upper extremity Blood Pressure Cuff Size : Regular Actual Weight : 65.8 kg(Converted to: 145 lb 1 oz) Dosing Weight Clinic : 65.8 kg SPENCER SUERO LPN - 10/09/2016 15:54 MENS LOCKER ROOM ATTENDANT General Info Information Given By : Patient Preferred Communication Mode : Verbal Languages : Chadian Is Patient Female and 13-50 no hysterectomy : Yes Status : Patient denies Are you ? : No SPENCER SUERO LPN - 10/09/2016 15:54 MENS LOCKER ROOM ATTENDANT Subjective Pain Symptoms : No SPENCER SUERO LPN - 10/09/2016 15:54 MENS LOCKER ROOM ATTENDANT Dependent Habits Exposure to Tobacco Smoke : Other: none Smoking Status : Never smoker Tobacco 2A : No Tobacco Use/Currently Using : No Tobacco Use/Last 30 Days : No Tobacco Use/Last 12 months : No SPENCER SUERO LPN - 10/09/2016 15:54 MENS LOCKER ROOM ATTENDANT Source: [facility] [employer] Document Id: [id number] MENS LOCKER ROOM ATTENDANT!30 LOCKER ROOM ATTENDANT documented in this encounter Plan of Treatment Not on filedocumented as of this encounter Procedures Procedure Name Priority Date/Time Associated Comments Diagnosis BACTERIAL CULTURE, Routine 10/09/2016 4:08 PM Res ults for this AEROBIC, URINE MENS LOCKER ROOM ATTENDANT procedure are in the results section. HXUR % DYSMORPHIC Routine 10/09/2016 4:05 PM Resu lts for this RBC MENS LOCKER ROOM ATTENDANT procedure are i n the results section. URINALYSIS, Routine 10/09/2016 4:05 PM Results f or this MIDSTREAM, WITH MENS LOCKER ROOM ATTENDANT procedure ar e in CULTURE IF INDICATED the res ults section. documented in this encounter Results (ABNORMAL) Bacterial Culture, Aerobic, Urine (10/09/2016 4:08 PM MENS LOCKER ROOM ATTENDANT) Component Value Ref Test Analysis Performed At [facility] Range Method Time Signature Bacterial (POSITIVE) <=0.5 POWERCHART Culture, Aerobic, Urine HXFinal >100,000 cfu/mL POWERCHART Staphylococcus saprophyticus Specimen Anatomical Collection Method Collection Time Receive d Time (Source) Location / / Volume Laterality Urine, First 10/09/2016 4:08 PM 7 4:08 Voided MENS LOCKER ROOM ATTENDANT PM MENS LOCKER ROOM ATTENDANT Edgardo Gil M.D. LAB MICROBIOLOGY - GENERAL O RDERABLES Performing Organization Address City/[facility] Code Phon e Number POWERCHART HXUR % DYSMORPHIC RBC (10/09/2016 4:05 PM MENS LOCKER ROOM ATTENDANT) athologist Signature Dysmorphic RBC <=25 <=25 POWERCHART Specimen Anatomical Collection Method Collection Time Receive d Time (Source) Location / / Volume Laterality Urine, First 10/09/2016 4:05 PM 7 4:05 Voided MENS LOCKER ROOM ATTENDANT PM MENS LOCKER ROOM ATTENDANT Edgardo Gil M.D. LAB HISTORICAL ORDERS Performing Organization Address City/State/ZIP Code Phon e Number POWERCHART (ABNORMAL) Urinalysis, Midstream, with culture if indicated (10/09/2016 4:05 PM MENS LOCKER ROOM ATTENDANT) [facility] Method Time Signature HXUR WBC. >100 (A) None Seen POWERCHART HPF HXUR RBC. 3-10 (A) None Seen POWERCHART HPF HXUR Bacteria, Present (A) None Seen POWERCHART HXUr Color Yellow Yellow POWERCHART Clarity Cloudy (A) Clear POWERCHART Glucose Negative Negative POWERCHART HXBILIRUBIN Negative Negative POWERCHART Ketones, QL(U) Negative Negative POWERCHART Specific 1.008 1.001 - POWERCHART [place], POCT, 1.035 U Comment: Reference Range Specific [place]: 1.000-1.035 pH, POCT, Urine 7.0 POWERCHART Comment: UA pH Reference Range pH: 5.0-8.0 Protein, Ur, Dip Negative Negative POWERCHART Urobilinogen 0.2 0.2 MGDL POWERCHART Comment: Reference Range Urobilinogen: 0.2-1.0 mg/dL HXNITRITE Negative Negative POWERCHART HXBLOOD Small (A) Negative POWERCHART Leukocyte Esterase Large (A) Negative POWERCHART Specimen (Source) Anatomical Collection Method Collection Time Re ceived Time Location / / Volume Laterality Urine, First 10/09/2016 4:05 PM Voided MENS LOCKER ROOM ATTENDANT Edgardo Gil M.D. LAB URINE ORDERABLES Performing Organization Address City/State/ZIP Code Phon e Number POWERCHART documented in this encounter Visit Diagnoses Not on filedocumented in this encounter
--- OUTSIDE RECORDS SUMMARY | 2022-05-12 17:07 | XMS_ITS | Encounter Summary ---
:1995 Author Organization [facility] Address [address] [place] [address] Care Team Providers Name Role Phone Unavailable Primary Care Provider Unavailable Encounter Details Date Type Department Care Team Description 05/24/2012 Hospital Encounter HX [facility] Maria Guadalupe Rios M.D. [address] [facility], [place] [address] (Wo rk) Social History Tobacco Use Types Packs/Day Years Used Date Smoking Tobacco: Never Assessed Sex Assigned at Date Recorded Not on file documented as of this encounter Last Filed Vital Signs Vital Sign Reading Time Taken Comments Blood Pressure 100/62 05/24/2012 11:29 AM CDT Pulse - - Temperature - - Respiratory Rate - - Oxygen Saturation - - Inhaled Oxygen Concentration - - Weight - - Height - - Body Mass Index - - documented in this encounter Progress Notes Gideon Rios M.D. - 05/24/2012 12:00 AM CDT [id number] This 16-year-old female is here for follow up of acne. She was last seen in September. She had a flare-up of her acne last week. She does not know why. She has been using soap on her face, Differin every night and minocycline but it just does not seem to be doing the job. PHYSICAL EXAM Face is very oily today and has many comedones. Back and chest are fairly clear. IMPRESSION / REPORT / PLAN Acne PLAN: I told her since our current regimen is not working we should try a different method and she was very amenable to trying Traci. I explained to her possibility of blood clots and she was counseled on its use by Reyna Leonard and will start it this Tuesday. Follow up again in 6 months and continue the Differin. Gideon Rios M.D. sks Electronically Signed By: GIDEON RIOS MD On: 05/26/2012 02:56 PM Source: [facility] MHSDOLBEYNONRADSYS Document Id: [id number] documented in this encounter Miscellaneous Notes Miscellaneous - Gideon Rios M.D. - 05/24/2012 5:43 PM CDT Ambulatory Patient Summary [address] [id number] Visit Information Name: AUDRA PAULINO Current Date: 05/24/2012 17:43:02 Physicians Attending Provider: GIDEON RIOS MD Primary Care Provider: JOAN CALLE Your Medications Here is a list of your medications. It is important to take your medications as directed. Use a pillbox or chart to help remind you to take your medications. Please let your doctor or nurse know if you have problems taking your medications. Medication/Strength Dose Route Frequency Indications/Special Instructions/Comments adapalene topical (Differin 0.1% topical gel) 1 michael Topical once a day (at bedtime) drospirenone-ethinyl estradiol (Traci 3 mg-0.03 mg oral tablet) 1 tab(s) Oral once a day minocycline (minocycline 100 mg oral tablet) 100 mg Oral two times a day Attention: If you have any medications at home that are not on this list, DO NOT take them until youcontact your provider for clarification. Your Allergies & Intolerances Substance Reaction Symptoms Category Comments No Known Allergies Drug Your Problem List Problem Status Onset Comments Acne NOS Active Your Upcoming Appointments Date Time Location Reason Provider No Appointments found Your Goals/Additional instructions: Source: [facility] POWERCHART Document Id: [id number] Valdemar - Gideon Rios M.D. - 05/24/2012 5:43 PM CDT Ambulatory Depart Summary [address] [address] Visit Information Name: AUDRA PAULINO Visit Date: 05/24/2012 17:43:01 Attending Provider: GIDEON RIOS MD Primary Care Provider: JOAN CALLE AUDRA RAY has been given the following list of medications: Your Medications It is important to take your medications as directed. Use a pill box or chart to help remind you to take your medications. Please let your doctor or nurse know if you have problems taking your medications. Medication/Strength Dose Route Frequency Indications/Special Instructions/Comments adapalene topical (Differin 0.1% topical gel) 1 michael Topical once a day (at bedtime) drospirenone-ethinyl estradiol (Traci 3 mg-0.03 mg oral tablet) 1 tab(s) Oral once a day minocycline (minocycline 100 mg oral tablet) 100 mg Oral two times a day Attention: If you have any medications at home that are not on this list, DO NOT take them until youcontact your provider for clarification. Additional Information: Source: [facility] POWERCHART Document Id: [id number] Miscellaneous - Rob Jha, C.MJohanaAJohana - 05/24/2012 11:29 AM CDT Pediatric Mushroom Press Operator Intake/History Pediatric Mushroom Press Operator Intake/History Entered On: 05/24/2012 11:31 CDT Performed On: 05/24/2012 11:29 CDT by ROB JHA Intake Chief Complaint : f/u acne, had a flare up last week Systolic Blood Pressure : 100mmHg Diastolic Blood Pressure : 62mmHg NIBP Mean : 75mmHg BP Location : Right upper extremity Blood Pressure Cuff Size : Regular ROB JHA - 05/24/2012 11:29 CDT Subjective Pain Symptoms : No ROB JHA - 05/24/2012 11:29 CDT Dependent Habits Tobacco Use/Currently Using : No Smoking Status : Never smoker ROB JHA - 05/24/2012 11:29 CDT Allergy Allergies (Active) NKA Estimated Onset Date: Unspecified ; Created By: VASQUEZ SERRANO; Reaction Status: Active ; Category: Drug ; Substance: NKA ; Type: Allergy ; Updated By: VASQUEZ SERRANO; Reviewed Date: 05/24/2012 11:28 CDT Source: [facility] [employer] Document Id: [id number] documented in this encounter Plan of Treatment Not on filedocumented as of this encounter Visit Diagnoses Not on filedocumented in this encounter
--- OUTSIDE RECORDS SUMMARY | 2022-05-12 17:07 | XMS_ITS | Encounter Summary ---
:1995 Author Organization [facility] Address [address] [place] [address] Care Team Providers Name Role Phone Unavailable Primary Care Provider Unavailable Encounter Details Date Type Department Care Team Description 02/20/2014 Hospital Encounter HX [facility] Maria Guadalupe Rios M.D. [address] [facility], [place] [address] (Wo rk) Social History Tobacco Use Types Packs/Day Years Used Date Smoking Tobacco: Never Assessed Sex Assigned at Date Recorded Not on file documented as of this encounter Progress Notes Gideon Rios M.D. - 02/20/2014 10:45 AM CDT [id number] CHIEF COMPLAINT/REASON FOR VISIT Acne with complications of her medications. HISTORY OF PRESENT ILLNESS This 18-year-old female is home from college. She has been treated for her acne with Traci and Differin. She says the Traci seems to have caused hair loss, and she also feels like she has been very emotional on it, and she would like to change this. The acne is actually not under very good control either. PHYSICAL EXAMINATION Exam of face shows inflammatory papules across the forehead and a few on the cheeks. She does have significant hair loss along the frontal hairline. IMPRESSION/REPORT/PLAN Acne, not well controlled with Traci and adverse effects of hair thinning. PLAN: Will D/C Traci. She desires to stay on the control pills so we will try Ortho Tri-Cyclen and add spironolactone 50 mg daily starting with 25 mg for the first 2 weeks, which will help her acne as well as hopefully encourage hair regrowth. Also would like her to use Cleocin T topically across the forehead twice a day, and she will follow up in April for a recheck. Gideon Rios M.D./ze Electronically Signed By: GIDEON RIOS MD On: 03/08/2014 06:10 PM Source: [facility] MHSDOLBEYNONRADSYS Document Id: [id number] documented in this encounter Miscellaneous Notes Miscellaneous - Padmini Morse, L.P.N. - 02/20/2014 10:58 AM CDT Adult Engineering Manager Intake/History Adult Engineering Manager Intake/History Entered On: 02/20/2014 10:58 CDT Performed On: 02/20/2014 10:58 CDT by PADMINI MORSE Intake Chief Complaint : acne recheck PADMINI MORSE - 02/20/2014 10:58 CDT General Info Information Given By : Patient Languages : Cook Islander PADMINI MORSE - 02/20/2014 10:58 CDT Subjective Pain Symptoms : No PADMINI MORSE - 02/20/2014 10:58 CDT Dependent Habits Tobacco Use/Currently Using : No Exposure to Tobacco Smoke : Other: none Smoking Status : Never smoker PADMINI MORSE - 02/20/2014 10:58 CDT Source: [facility] POWERCHART Document Id: [id number] CDT!12 documented in this encounter Plan of Treatment Not on filedocumented as of this encounter Visit Diagnoses Not on filedocumented in this encounter
--- OUTSIDE RECORDS SUMMARY | 2022-05-12 17:07 | XMS_ITS | Encounter Summary ---
:1995 Author Organization [facility] Address [address] [place] [address] Care Team Providers Name Role Phone Unavailable Primary Care Provider Unavailable Reason for Visit Reason Onset Date Comments Returning Call 11/30/2017 Encounter Details Date Type Department Care Team Description 11/30/2017 Clinical Communication Department of [facility] Tal Varghese Returning Call Medicine, Kannan Mcdonald M.D. [facility], [facility] [address] [place], [place] [address] [address] [place], [place] [phone] (Work) [phone] Social History Tobacco Use Types Packs/Day Years Used Date Smoking Tobacco: Never Smokeless Tobacco: Never Sex Assigned at Date Recorded Not on file documented as of this encounter Miscellaneous Notes Telephone Encounter - Marlyn Hood, R.M.AJohana - 12/02/2017 10:18 AM POTATO PEELER Spoke to patient see other message in chart TO PEELER Telephone Encounter - Anne Marie Jean - 11/30/2017 10:28 AM CST Patient returned call. Unable to locate note. TO PEELER documented in this encounter Plan of Treatment Not on filedocumented as of this encounter Visit Diagnoses Not on filedocumented in this encounter Additional Health Concerns Assessment Noted Time PHQ-9 Depression Total Score: 1 06/09/2017 9:35 AM CDT documented as of this encounter
--- OUTSIDE RECORDS SUMMARY | 2022-05-12 17:07 | XMS_ITS | Encounter Summary ---
:1995 Author Organization [facility] Address [address] [place] [address] Care Team Providers Name Role Phone Unavailable Primary Care Provider Unavailable Encounter Details Date Type Department Care Team Description 12/18/2018 Refill Department of [facility] YvetteHans M.D. Medicine, [facility], [address] [place] [address] [address] [place] [address] [facility] [phone] Social History Tobacco Use Types Packs/Day Years [...]
--- OUTSIDE RECORDS SUMMARY | 2022-05-12 17:07 | XMS_ITS | Encounter Summary ---
:1995 Author Organization [facility] Address [address] [place] [address] Care Team Providers Name Role Phone Unavailable Primary Care Provider Unavailable Encounter Details Date Type Department Care Team Description 02/03/2010 Hospital Encounter HX [facility] Maria Guadalupe Rios M.D. [address] [facility], [place] [address] (Wo rk) Social History Tobacco Use Types Packs/Day Years Used Date Smoking Tobacco: Never Assessed Sex Assigned at Date Recorded Not on file documented as of this encounter Progress Notes Gideon Rios M.D. - 02/03/2010 12:00 AM CDT [id number] HISTORY OF PRESENT ILLNESS Mercedes is here for acne followup at 3 months. In October she started tetracycline and Glytone Gel Wash and has been doing much better. She is having no problems with the medications. PHYSICAL EXAM SKIN: The face is clear with the exception of a few small closed comedones on the glabella, sides of the nose, and chin. IMPRESSION / REPORT / PLAN 1) Acne, much improved. She will continue the tetracycline 500 mg b.i.d. (#180 x3). She was again warned about sun exposure in the summer and told that she may cut down on the dose if her acne is doing really well. She will continue the Glytone Gel Wash b.i.d. and also begin Differin 0.1% lotion. We had a coupon for a free 2 ounce bottle of this, but I could not find lotion in the computer, so we printed it out and crossed out the gel and put lotion and hopefully that will go through okay. I did send a message to May Arreola that it needs to be added to the computer. She will follow up again in 1 year or sooner p.rviky. Gideon Rios M.D. srw Electronically Signed By:GIDEON RIOS MD On 02/06/2010 05:33 PM Source: [facility] MHSDOLBEYNONRADSYS Document Id: [id number] documented in this encounter Miscellaneous Notes Miscellaneous - Laura Fernando RJohanaNJohana - 02/03/2010 9:04 AM CDT Adult Binding Nicker Intake/History Adult Binding Nicker Intake/History Entered On: 02/03/2010 9:04 CDT Performed On: 02/03/2010 9:04 CDT by LAURA FERNANDO Intake Chief Complaint: recheck acne-has seen improvement Actual Weight: 63.100kg(Converted to: 139.112lb) Dosing Weight Clinic: 63.10kg LAURA FERNANDO - 02/03/2010 9:04 CDT Subjective Pain Symptoms: No LAURA FERNANDO - 02/03/2010 9:04 CDT Dependent Habits Tobacco Use/Currently Using: No LAURA FERNANDO - 02/03/2010 9:04 CDT Allergies Allergies (Active) NKA Estimated Onset Date: Unspecified ; Created By: VASQUEZ SERRANO; Reaction Status: Active ; Category: Drug ; Substance: NKA ; Type: Allergy ; Updated By: VASQUEZ SERRANO; Reviewed Date: 02/03/2010 9:03 CDT Source: [facility] POWERCHART Document Id: [id number] CDT!9 documented in this encounter Plan of Treatment Not on filedocumented as of this encounter Visit Diagnoses Not on filedocumented in this encounter
--- OUTSIDE RECORDS SUMMARY | 2022-05-12 17:07 | XMS_ITS | Encounter Summary ---
:1995 Author Organization [facility] Address [address] [place] [address] Care Team Providers Name Role Phone Unavailable Primary Care Provider Unavailable Encounter Details Date Type Department Care Team Description 10/09/2016 Hospital Encounter HX NO MAPPING Edgardo Gil M. D. Social History Tobacco Use Types Packs/Day Years Used Date Smoking Tobacco: Never Sex Assigned at Date Recorded Not on file documented as of this encounter Medications at Time of Discharge Medication Sig Dispensed Refills Start Date End Date NORGESTIMATE-ETHINYL Take 1 tablet by 0 4 08/24/2017 ESTRADIOL ORAL mouth daily. documented as of this encounter Miscellaneous Notes Miscellaneous - Conversion, Historical Provider Ser - 10/09/2016 11:59 PM [facility] Coding Summary-Paper Based CODING DATE: 10/20/2016 FINAL [facility] STATUS: * Discharged to Home or Self Care PAYOR: [employer] ADMIT DX: REASON FOR VISIT DX: FINAL DX: PRINCIPAL: R30.0 Dysuria SECONDARY: PROCEDURES DOCTOR NAME DATE NOTE: The code number assigned matches the documented diagnosis and / or procedure in the patient's chart. However, the narrative phrase printed from the coding software may appear abbreviated, or result in slightly different terminology. Coded By: RONALD DOVER Date Saved: 10/20/2016 06:35 am Source: [facility] [employer] Document Id: [id number] documented in this encounter Plan of Treatment Not on filedocumented as of this encounter Visit Diagnoses Not on filedocumented in this encounter
--- OUTSIDE RECORDS SUMMARY | 2022-05-12 17:07 | XMS_ITS | Encounter Summary ---
:1995 Author Organization [facility] Address [address] [place] [address] Care Team Providers Name Role Phone Elsewhere, Pcp Primary Care Provider Unavailable Reason for Visit Reason Comments Tick Removal yesterday Left upper arm, not sure if it was a tick, red burning Encounter Details Date Type Department Care Team Description 03/03/2019 Office Visit Urgent Care in [facility] Insect Bit e Arm Initial Tre Brunner M.D. Right (Primary Dx) [address] [place] [id number] Social History Tobacco Use Types Packs/Day Years [...] 0.4 oz) 03/03/2019 11:52 AM CDT Height - - Body Mass Index - - documented in this encounter Progress Notes Edgardo Gil M.D. - 03/03/2019 11:15 AM CDT CHIEF COMPLAINT / REASON FOR VISIT Mercedes Snell is a 23 y.o. female who presents for evaluation of Tick Removal ( yesterday Left upper arm, not sure if it was a tick, red burning). HISTORY OF PRESENT ILLNESS This pleasant 23-year-old female presents noting onset of a pruritic itchy unspecified bite site over the left humerus region. She does not recall the specific exposure but actually has multiple sites over the body surface that now demonstrate evidence of insect bite. No tick was identified and the patient is certain that she would have identified a tick if there was one at the above referenced location. There is local pruritus. No other acute concerns are voiced. REVIEW OF SYSTEMS No current acute cardio respiratory positive. Patient refutes any chance of . CURRENT MEDICATIONS As per EMR. ALLERGIES Allergies as of 03/03/2019 ??? (No Known Allergies) VITALS SIGNS BP 97/64 (BP Location: Right arm, Patient Position: Sitting, Cuff Size: Regular) Pulse 89 Temp 36.7 ??C (Oral) Resp 20 Wt 74.4 kg SpO2 100% ? No I personally recorded a recheck blood pressure of 117/64. PHYSICAL EXAMINATION General: Overall healthy-appearing female in no acute distress. Cardiovascular: Regular. Lungs: Clear. Skin: Over the left mid humerus is an at approximately 2 cm area of localized dermatitis with a possible punctate insect bite site. There reportedly was a much larger peripheral area of erythema but this is no longer evident. Examining the remainder of the patient's exposed skin surface there are scattered clinical insect bite sites. One is somewhat concerning for secondary infection over the right proximal upper extremity with 3 cm of dimension with warmth and induration. ASSESSMENT/PLAN #1 Insect Bite Arm Initial Right Clinical insect bite sites as described with concern for low-grade infection as referenced. No clear-cut confirmation of tick exposure. DIAGNOSTIC: None. THERAPEUTIC: Will add doxycycline as per EMR. Otherwise symptomatic care for the pruritus. Benadryl as directed reviewing drowsiness precautions. Cool compress p.r.n.. May add 1% topical hydrocortisone cream b.i.d.for short-term use. PATIENT EDUCATION: Reviewed the above. Follow-up p.r.n. lack of steady and complete clinical quieting. Have recommendedthat the use of insect repellent as needed. Edgardo Gil M.D. documented in this encounter Plan of Treatment Not on filedocumented as of this encounter Visit Diagnoses Diagnosis Insect Bite Arm Initial Right - Primary documented in this encounter Additional Health Concerns Assessment Noted Time PHQ-9 Depression Total Score: 1 01/10/2019 8:39 AM CDT documented as of this encounter Care Teams Brusher Hand Relationship Specialty Start Date End Date Elsewhere, Pcp PCP - General Internal Medicine 01/10/19 documented as of this encounter
--- OUTSIDE RECORDS SUMMARY | 2022-05-12 17:07 | XMS_ITS | Encounter Summary ---
:1995 Author Organization [facility] Address [address] [place] [address] Care Team Providers Name Role Phone Unavailable Primary Care Provider Unavailable Encounter Details Date Type Department Care Team Description 02/17/2015 Hospital Encounter [facility] Manohar Lambert M.D. [address] [place] [address] [id number] (Wo rk) Social History Tobacco Use Types Packs/Day Years Used Date Smoking Tobacco: Never Assessed Sex Assigned at Date Recorded Not on file documented as of this encounter Last Filed Vital Signs Vital Sign Reading Time Taken Comments Blood Pressure 100/66 02/17/2015 12:28 PM CDT Pulse 70 02/17/2015 12:28 PM CDT Temperature - - Respiratory Rate 18 02/17/2015 12:28 PM CDT Oxygen Saturation - - Inhaled Oxygen Concentration - - Weight 69.2 kg (152 lb 8.9 oz) 02/17/2015 12:28 PM CDT Height - - Body Mass Index - - documented in this encounter Medications at Time of Discharge Medication Sig Dispensed Refills Start Date End Date NORGESTIMATE-ETHINYL Take 1 tablet by 0 4 08/24/2017 ESTRADIOL ORAL mouth daily. documented as of this encounter Progress Notes Nolberto Lambert M.D. - 02/17/2015 11:37 AM CDT [id number] CHIEF COMPLAINT/REASON FOR VISIT Earache with some mild drainage. No fever. HISTORY OF PRESENT ILLNESS This patient has had the above symptoms now for approximately 1 month. The hearing has not been affected at all. There has been no sore throat or swallowing issues. MEDICATIONS Per EMR. ALLERGIES Per EMR. SYSTEMS REVIEW CONSTITUTIONAL: No fever, chills, fatigue. EYES: No discharge, burning, or blurring. ENT: No nasal congestion. No sore throat. Ear discomfort and drainage on the left, none on the right. RESPIRATORY: No cough, wheezing, or dyspnea. SKIN: No rash. VITAL SIGNS Per EMR. PHYSICAL EXAMINATION GENERAL: Alert, cooperative, and pleasant. No acute distress. HEAD AND NECK: Normal in contour. Neck is supple. EYES: Bright and well hydrated. No discharge. ENT: Nasal passages are clear. The ears, clear on the right. On the left there are significant inflammatory elements. Irrigation was accomplished which shows an inflamed canal. The pharynx is adequately hydrated. Swallowing is normal. LUNGS: Clear. No wheezes, rales, or rhonchi. SKIN: No rash, bruising, irritation, or erythema. IMPRESSION/REPORT/PLAN Otitis externa, acute, left. Recommend Ciprodex drops 3 2 times a day for 7 days. Nolberto Lambert M.D./ze Electronically Signed By: NOLBERTO LAMBERT MD On: 02/17/2015 03:52 PM Source: [facility] MHSDOLBEYNONRADSYS Document Id: [id number] documented in this encounter Miscellaneous Notes Miscellaneous - Nolberto Lambert M.D. - 02/17/2015 1:10 PM CDT Ambulatory Patient Summary [facility] [address] [place], [place] [id number] Visit Information Name: AUDRA PAULINO [facility] Number: [id number] Current Date: 02/17/2015 13:10:32 Physicians Attending Provider: NOLBERTO LAMBERT MD Primary Care Provider: PCP, ELSEWHERE LORA AUDRA RAY has been given the following [...] Take Indications/Special Instructions/Comments/Notes for Patient Medication Changes/Routing ciprofloxacin-dexamethasone otic (Ciprodex 0.3%-0.1% otic suspension) 4 Drops, Ear(Left), two times a day New Routed to [facility] [address] [place] [address] clindamycin topical (Cleocin T 1% topical solution) 1 michael, Topical, two times a day norgestimate-ethinyl estradiol (Ortho Tri-Cyclen oral tablet) 1 Tablet(s), Oral, once a day spironolactone (spironolactone 50 mg oral tablet) 1 Tablet(s), Oral, once a day Stop Taking the Following Medications: Medication list as of 02-17-15 13:10 Attention: If you have any medications at home that are not on this list, DO NOT take them until youcontact your provider for clarification. Give a copy of your medication list to your primary care provider. Update your medication list any time medications or doses are changed and carry your medication list at all times in case of emergency. Electronically Signed By: NOLBERTO LAMBERT MD Signed On:17-FEB-2015 13:10:27 Your Allergies & Intolerances Substance Reaction Symptoms Category Comments No Known Allergies Drug Your Problem List Problem Status Onset Comments Acne NOS Active Your Upcoming Appointments Date Time Location Provider No Appointments found Attention: Contact your local Clinic if further appointment detail needed. Your Goals/Additional instructions: Source: [facility] POWERCHART Document Id: [id number] Miscellaneous - Nolberto Lambert M.D. - 02/17/2015 1:10 PM CDT Ambulatory Discharge Medication List [facility] [address] [place] [id number] Visit Information Name: AUDRA PAULINO [facility] Number: [id number] Visit Date: 02/17/2015 13:10:31 Attending Provider: NOLBERTO LAMBERT MD Primary Care Provider: PCP, TREVOR PAULINOAUDRA has been given the following list of medications: Your Medications It is important to take your medications as directed. Use a pill box or chart to help remind you to take your medications. Please let your doctor or nurse know if you have problems taking your medications. Medication/Strength How to Take Indications/Special Instructions/Comments/Notes for Patient Medication Changes/Routing ciprofloxacin-dexamethasone otic (Ciprodex 0.3%-0.1% otic suspension) 4 Drops, Ear(Left), two times a day New Routed to [facility] [address] [place] [address] clindamycin topical (Cleocin T 1% topical solution) 1 michael, Topical, two times a day norgestimate-ethinyl estradiol (Ortho Tri-Cyclen oral tablet) 1 Tablet(s), Oral, once a day spironolactone (spironolactone 50 mg oral tablet) 1 Tablet(s), Oral, once a day Stop Taking the Following Medications: Medication list as of 02-17-15 13:10 Attention: If you have any medications at home that are not on this list, DO NOT take them until youcontact your provider for clarification. Give a copy of your medication list to your primary care provider. Update your medication list any time medications or doses are changed and carry your medication list at all times in case of emergency. Electronically Signed By: NOLBERTO LAMBERT MD Signed On:17-FEB-2015 13:10:27 Additional Information: Source: [facility] POWERCHART Document Id: [id number] Miscellaneous - Camron Berry, R.N. 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 Intake/History Adult Machine Tester Intake/History Entered On: 02/17/2015 12:30 CDT Performed On: 02/17/2015 12:28 CDT by CAMRON FIORE Intake Chief Complaint : left ear aches, red, fluid drainage, given antibiotic (December) from school nurse, 'EM[employer] ear Onset of Symptoms : begining of January Temperature Oral : 36.7 DegC(Converted to: 98.1 DegF) Peripheral Pulse Rate : 70 /min Respiratory Rate : 18 /min Heart Rhythm : Regular Systolic Blood Pressure : 100 mmHg Diastolic Blood Pressure : 66 mmHg NIBP Mean : 77 mmHg BP Location : Right upper extremity Blood Pressure Cuff Size : Regular Actual Weight : 69.2 kg(Converted to: 152 lb 9 oz) Weight Source : Standing scale Dosing Weight Clinic : 69.2 kg CAMRON FIORE - 02/17/2015 12:28 CDT General Info Information Given By : Patient Preferred Communication Mode : Verbal Languages : Polish Is Patient Female and 13-50 no hysterectomy : Yes Status : Patient denies Are you ? : CAMRON Dominguez - 02/17/2015 12:28 CDT Subjective Pain Symptoms : CAMRON Dominguez - 02/17/2015 12:28 CDT Dependent Habits Tobacco Use/Currently Using : No Exposure to Tobacco Smoke : Other: none Smoking Status : Never smoker CAMRON FIORE - 02/17/2015 12:28 CDT ID Screen Travel Within Last 21 Days : No Contact with someone with Ebola : CAMRON Dominguez - 02/17/2015 12:28 CDT Source: [employer] Document Id: [id number] CDT!32 documented in this encounter Plan of Treatment Not on filedocumented as of this encounter Visit Diagnoses Not on filedocumented in this encounter
--- OUTSIDE RECORDS SUMMARY | 2022-05-12 17:07 | XMS_ITS | Encounter Summary ---
:1995 Author Organization [facility] Address [address] [place] [address] Care Team Providers Name Role Phone Unavailable Primary Care Provider Unavailable Encounter Details Date Type Department Care Team Description 05/14/2014 Hospital Encounter [facility] Maria Guadalupe Rios M.D. [address] [facility] [place], [place] [address] (Wo rk) Social History Tobacco Use Types Packs/Day Years Used Date Smoking Tobacco: Never Assessed Sex Assigned at Date Recorded Not on file documented as of this encounter Last Filed Vital Signs Vital Sign Reading Time Taken Comments Blood Pressure 102/62 05/14/2014 9:20 AM CDT Pulse - - Temperature - [...] encounter Progress Notes Gideon Rios M.D. - 05/14/2014 9:00 AM CDT [id number] CHIEF COMPLAINT/REASON FOR VISIT Recheck acne. HISTORY OF PRESENT ILLNESS This 18-year-old female is here for recheck of her acne and refills of her medication. She feels that her acne has been doing very well even though she has a flare right now due to her and her menses but overall it has been doing very well. She is having no problems with the medication whatsoever. PHYSICAL EXAMINATION Face shows a few inflammatory papules on the glabella and mid cheeks otherwise clear. IMPRESSION/REPORT/PLAN Acne doing well. PLAN: Refilled her Ortho Tri-Cyclen, Spironolactone 50 mg daily, and Cleocin T solution. She will follow up in 1 year or sooner if there is a flare. 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 : No ROB JHA - 05/14/2014 9:20 CDT Subjective Pain Symptoms : No ROB JHA - 05/14/2014 9:20 CDT Dependent Habits Tobacco Use/Currently Using : No Exposure to Tobacco Smoke : Other: none Smoking Status : Never smoker ROB JHA - 05/14/2014 9:20 CDT Source: [facility] POWERCHART Document Id: [id number] CDT!20 documented in this encounter Plan of Treatment Not on filedocumented as of this encounter Visit Diagnoses Not on filedocumented in this encounter
--- OUTSIDE RECORDS SUMMARY | 2022-05-12 17:07 | XMS_ITS | Encounter Summary ---
:1995 Author Organization [facility] Address [address] [place] [address] Care Team Providers Name Role Phone Unavailable Primary Care Provider Unavailable Encounter Details Date Type Department Care Team Description 03/29/2017 Hospital Encounter [facility] Jeramy Mathew, D.O. [address] [place] [address] (Wo rk) Social History Tobacco Use Types Packs/Day Years Used Date Smoking Tobacco: Never Sex Assigned at Date Recorded Not on file documented as of this encounter Last Filed Vital Signs Vital Sign Reading Time Taken Comments Blood Pressure 104/54 03/29/2017 11:14 AM CDT Pulse 78 03/29/2017 11:14 AM CDT Temperature - - Respiratory Rate 16 03/29/2017 11:14 AM CDT Oxygen Saturation - - Inhaled Oxygen Concentration - - Weight 66.3 kg (146 lb 2.6 oz) 03/29/2017 11:14 AM CDT Height - - Body Mass Index - - documented in this encounter Medications at Time of Discharge Medication Sig Dispensed Refills Start Date End Date NORGESTIMATE-ETHINYL Take 1 tablet by 0 4 08/24/2017 ESTRADIOL ORAL mouth daily. documented as of this encounter Progress Notes Mica Mathew, D.O. - 03/29/2017 11:08 AM CDT [id number] CHIEF COMPLAINT/REASON FOR VISIT Cough and bump behind right ear. HISTORY OF PRESENT ILLNESS Mercedes Snell is a 21-year-old female with a history of mild depression who presents to the clinic today complaining of a cough for 1 week as well as a bump that she noticed behind her ear last night. She states that for her cough she has taken some heartburn medicine 2 days ago at the recommendation of her mother, suspicious for GERD but that this did not help at all. She denies any fever or drainage. No sore throat. No stuffy nose. She recently graduated from college and lives by herself in an apartment in [place] and has not had any sick contacts. She does not have a history of recurrent upper respiratory infection. Regarding the bump behind her right ear, it is mildly painful and she is just not sure what is and wants to get this looked at since she is here anyway for cough. ALLERGIES No known drug allergies. VITAL SIGNS Temperature 36.8 Celsius. Pulse 78. Respiratory rate 16. Blood pressure 104/54. SpO2 100% on room air. Weight 66.3 kg. PHYSICAL EXAMINATION GENERAL: Alert, appropriate, in no acute distress. HEENT: Conjunctivae not injected. No air-fluid level behind the TMs. No otorrhea present. No erythema of the TMs. Normal nasal mucosa without discharge. Normal pharynx and tonsils. Behind the right auricle at the base of the ear in that area, there is a small bump that appears white, nonerythematous with no drainage. LYMPHATICS: No cervical lymphadenopathy. HEART: Regular rate and rhythm. LUNGS: Clear to auscultation bilaterally. Nonlabored breathing pattern. Normal rate. ABDOMEN: Soft, nontender, nondistended. SKIN: No rash or lesions in exposed areas, except as that noted in HEENT. IMPRESSION/REPORT/PLAN 1. Viral upper respiratory infection. 2. Comedone. We discussed symptomatic management for viral pharyngitis with [id number] medications as needed as this is a self-limited disease. I recommended specifically oral guaifenesin with dextromethorphan for thinning of secretions and suppression of cough. I also sent a prescription for Tessalon [id number] mg 3 times daily as needed for cough to the patient's preferred pharmacy. We discussed that symptoms commonly last for 3 to 10 days, but may last as long as 2 weeks. We discussed reasons to return for medical care which include difficulty breathing, skin color turning pale, bluish or solorio, or fever lasting longer than 2 days or symptoms persisting at the current level or worsening beyond 2 weeks.I also discussed with the patient that the lesion behind her right ear should self resolve. I advised her to keep the skin clean and it was okay to apply topical benzoyl peroxide if it bothered her. Provided reassurance. All questions answered. Billing: Jose Ramon Mathew D.O./ze Electronically Signed By: MICA MATHEW DO On: 03/29/2017 01:56 PM Modified by and Electronically Signed by: MICA MATHEW DO On: 03/29/2017 01:56 PM Source: 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 Rabbit Fancier Intake/History Adult Rabbit Fancier Intake/History Entered On: 03/29/2017 11:16 CDT Performed On: 03/29/2017 11:14 CDT by ANGÉLICA SULLIVAN Intake Chief Complaint : Ear Pain right Cough ongoing Onset of Symptoms : 1 week Temperature Oral : 36.8 DegC(Converted to: 98.2 DegF) Peripheral Pulse Rate : 78 /min Respiratory Rate : 16 /min Systolic Blood Pressure : 104 mmHg Diastolic Blood Pressure : 54 mmHg NIBP Mean : 71 mmHg SpO2 : 100 % Actual Weight : 66.3 kg(Converted to: 146 lb 3 oz) Dosing Weight Clinic : 66.3 kg ANGÉLICA SULLIVAN - 03/29/2017 11:14 CDT General Info Information Given By : Patient Languages : Turkish Is Patient Female and 13-50 no hysterectomy : Yes Status : Patient denies Are you ? : No ANGÉLICA SULLIVAN - 03/29/2017 11:14 CDT Subjective Pain Symptoms : Yes ANGÉLICA SULLIVAN - 03/29/2017 11:14 CDT Dependent Habits Exposure to Tobacco Smoke : Other: none Smoking Status : Never smoker Tobacco 2A : No Tobacco Use/Currently Using : No Tobacco Use/Last 30 Days : No Tobacco Use/Last 12 months : No ANGÉLICA SULLIVAN [facility] - 03/29/2017 11:14 CDT Source: [facility] [employer] Document Id: [id number] CDT!28 documented in this encounter Plan of Treatment Not on filedocumented as of this encounter Visit Diagnoses Not on filedocumented in this encounter
--- OUTSIDE RECORDS SUMMARY | 2022-05-12 17:07 | XMS_ITS | Encounter Summary ---
:1995 Author Organization [facility] Address [address] [place] [address] Care Team Providers Name Role Phone Unavailable Primary Care Provider Unavailable Encounter Details Date Type Department Care Team Description 05/02/2017 Hospital Encounter [facility] Precious Love P.A.-C. [address] [place], [place] [address] (Wo rk) Social History Tobacco Use Types Packs/Day Years Used Date Smoking Tobacco: Never Sex Assigned at Date Recorded Not on file documented as of this encounter Medications at Time of Discharge Medication Sig Dispensed Refills Start Date End Date NORGESTIMATE-ETHINYL Take 1 tablet by 0 4 08/24/2017 ESTRADIOL ORAL mouth daily. documented as of this encounter Progress Notes Jemma Love P.A.-C. - 05/02/2017 5:29 PM CDT Clinic Full Note CHIEF COMPLAINT/REASON FOR VISIT cough HISTORY OF PRESENT ILLNESS Audra is a 21 year old female with onset with dry cough about 6 weeks ago without other cold symptoms, was seen in [facility] on and was told probably viral, given tessalon perles which didn't seem to help much at that time as her symptoms worsened with trouble breathing and congestion. Was gagging and almost vomiting due to cough. Then was seen in clinic on -about 10 days ago and given zithromax which didn't seem to help at all. Now chest hurts when coughing, will have gurgling in lower chest with deep breaths; had night sweats few times, but no fevers; some voice hoarseness and post nasal drip, blowing nose some but no sinus pain. Overall, feels that symptoms are a little better in the lastfew days. She's been using mucinex DM, taking extra vitamins and even tried OTC heartburn med, without much relief at all. She reports no history of asthma or allergies, last winter treated for bronchitis, nonsmoker. No exposures known of, last Tdap was given 04/17/07 MEDICATIONS Ortho Tri-Cyclen oral tablet, 1 tab(s), PO, Daily, 3 refills PROzac 10 mg oral tablet, 10 mg, 1 tab(s), PO, Daily ALLERGIES NKA PAST MEDICAL HISTORY Chronic Acne NOS Historical No historical problems SOCIAL HISTORY Date Time: 05/02/2017 14:16 Tobacco: Smoking Status: Never smoker Exposure: Other: none Alcohol: Use: No Results Found Recreational Drugs: Use: No Results Found Type: No Results Found FAMILY HISTORY No qualifying data available. VITAL SIGNS T: 37 ??C (Oral) HR: 76 BP: 108 / 66 WT: 68.6 kg PHYSICAL EXAMINATION GENERAL: Patient is in no distress. Capable of full communication without difficulty. Patient is polite and cooperative. Appropriately dressed and normal hygiene. SKIN: no suspicious lesions or rash noted over exposed legs, arms, face HEENT: Normocephalic. Pupils equal, conjunctiva clear. Canals patent, TMs normal. Oropharynx without lesion of mucosa. Pharynx with no erythema or exudate. NECK: Nontender. No nodes, no thyromegaly. HEART: Regular rate and rhythm. No murmurs, gallops or rubs noted. LUNGS: slight wheeze left mid lung otherwise Clear to auscultation bilaterally. No accessory muscles of respiration noted. ABDOMEN: Nontender to palpation. No hepato-splenomegaly. No mass. Normal bowel sounds. EXTREMITIES: No neurovascular compromise. No cyanosis MENTAL HEALTH: Alert and oriented, affect is bright IMPRESSION/REPORT/PLAN Cough NOS persistent cough for 6 weeks and already treated with zithromax; will treat for post infectious inflammation, she will start prednisone; may continue OTC cough suppressants as needed; let me know if not getting better Ordered: predniSONE, 40 mg = 2 tab(s), PO, Daily, with food or milk, in the morning, x 5 day(s), # 10 tab(s), 0 Refill(s), Acute, Pharmacy: [id number] Electronically Signed By: JEMMA LOVE PA-C On: 05/08/2017 09:29 AM Source: [facility] WorkubeCHART Document Id: [id number] documented in this encounter Miscellaneous Notes Miscellaneous - Jemma Love P.A.-C. - 05/08/2017 9:29 AM CDT Ambulatory Patient Summary [address] [id number] Visit Information Name: AUDRA PAULINO [facility] Number: [id number] Current Date: 05/08/2017 09:29:37 Physicians Attending Provider: JEMMA LOVE PA-C Primary Care Provider: PCP, TREVOR AUDRA PAULINO has been given the following [...] your medications. Medication/Strength Dose Route Frequency Indications/Special Instructions/Comments/Notes FLUoxetine (PROzac 10 mg oral tablet) 10 mg Oral once a day norgestimate-ethinyl estradiol (Ortho Tri-Cyclen oral tablet) 1 tab(s) Oral once a day Attention: If you have any [...] in case of emergency. Electronically Signed By: JEMMA LOVE PA-C Signed On:08-MAY-2017 09:29:35 Your Allergies & Intolerances Substance Reaction Symptoms [...] if you dont have one. Go to [email or web address] and click on Create Your Account. Then, follow the directions to complete the online form. Youll be asked for your [facility] number which you can find at the top of this document. Your Goals/Additional instructions: Source: [facility] POWERCHART Document Id: [id number] Miscellaneous - Jemma Love P.A.-C. - 05/08/2017 9:29 AM CDT Ambulatory Discharge Medication List [address] [id number] Visit Information Name: AUDRA PAULINO [facility] Number: [id number] Current Date: 05/08/2017 09:29:37 Attending Provider: JEMMA LOVE PA-C Primary Care Provider: PCP, ELSEWHERE LORAAUDRA has been given the following list of medications: Your Medications It is important to take your medications as directed. Use a pill box or chart to help remind you to take your medications. Please let your doctor or nurse know if you have problems taking your medications. Medication/Strength Dose Route Frequency Indications/Special Instructions/Comments/Notes FLUoxetine (PROzac 10 mg oral tablet) 10 mg Oral once a day norgestimate-ethinyl estradiol (Ortho Tri-Cyclen oral tablet) 1 tab(s) Oral once a day Attention: If you have any [...] in case of emergency. Electronically Signed By: JEMMA LOVE PA-C Signed On:08-MAY-2017 09:29:35 Additional Information: Source: [facility] POWERCHART Document Id: [id number] Miscellaneous - Demetra Blandon L.P.N. 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 Die Welder Intake/History Entered On: 05/02/2017 14:20 CDT Performed On: 05/02/2017 14:16 CDT by DEMETRA BLANDON LPN Intake Chief Complaint : cough Onset of Symptoms : 2- 09/27/ Ambulatory Intake Additional Information : cough worse at mid day Temperature Oral : 37 DegC(Converted to: 98.6 DegF) Peripheral Pulse Rate : 76 /min Heart Rhythm : Regular Systolic Blood Pressure : 108 mmHg Diastolic Blood Pressure : 66 mmHg NIBP Mean : 80 mmHg BP Location : Right upper extremity Blood Pressure Cuff Size : Regular Actual Weight : 68.6 kg(Converted to: 151 lb 4 oz) Weight Source : Standing scale Dosing Weight Clinic : 68.6 kg DEMERTA BLANDON LPN - 05/02/2017 14:16 CDT General Info Information Given By : Patient Languages : Colombian Is Patient Female and 13-50 no hysterectomy : Yes Status : Patient denies Are you ? : No DEMETRA BLANDON LPN - 05/02/2017 14:16 CDT Subjective Pain Symptoms : No DEMETRA BLANDON LPN - 05/02/2017 14:16 CDT Dependent Habits Exposure to Tobacco Smoke : Other: none Smoking Status : Never smoker Tobacco 2A : No Tobacco Use/Currently Using : No Tobacco Use/Last 30 Days : No Tobacco Use/Last 12 months : No DEMETRA BLANDON LPN - 05/02/2017 14:16 CDT Source: [facility] WorkubeCHART Document Id: [id number] CDT!31 documented in this encounter Plan of Treatment Not on filedocumented as of this encounter Visit Diagnoses Not on filedocumented in this encounter
--- OUTSIDE RECORDS SUMMARY | 2022-05-12 17:07 | XMS_ITS | Encounter Summary ---
:1995 Author Organization [facility] Address [address] [place] [address] Care Team Providers Name Role Phone Unavailable Primary Care Provider Unavailable Encounter Details Date Type Department Care Team Description 07/13/2011 Hospital Encounter HX [facility] Maria Guadalupe Rios M.D. [address] [facility], [place] [address] (Wo rk) Social History Tobacco Use Types Packs/Day Years Used Date Smoking Tobacco: Never Assessed Sex Assigned at Date Recorded Not on file documented as of this encounter Progress Notes Gideon Rios M.D. - 07/13/2011 12:00 AM CDT [id number] HISTORY OF PRESENT ILLNESS This 16-year-old female is here for followup of her acne. She is accompanied by her mom. She ran out of tetracycline and has not been using her Differin. She plays volleyball and sweats a lot. She is always wiping her face off with a towel. PHYSICAL EXAM SKIN: She has multiple inflammatory papules all over her face. IMPRESSION / REPORT / PLAN 1) Acne, not improved. PLAN: At this time, we are going to try minocycline 100 mg twice daily, usual instructions and precautions given. I suggested she use a microfiber towel to wash her face off during volleyball and maybe get new ones more frequently. Also suggested she use her Differin 0.3% gel 3 times a week. She will follow up again in 3 months for recheck. If her acne is not improved at that time, will consider oral contraceptives. Gideon Rios M.D. cla Electronically Signed By: GIDEON RIOS MD On: 07/22/2011 01:08 PM Source: [facility] MHSDOLBEYNONRADSYS Document Id: [id number] documented in this encounter Miscellaneous Notes Miscellaneous - Conversion, Historical Provider Ser - 07/13/2011 10:31 AM CDT Pediatric Spring Setter Intake/History Pediatric Spring Setter Intake/History Entered On: 07/13/2011 10:32 CDT Performed On: 07/13/2011 10:31 CDT by JAYY FRAGOSO Intake Chief Complaint: f/u acne JAYY FRAGOSO - 07/13/2011 10:31 CDT Subjective Pain Symptoms: No JAYY FRAGOSO - 07/13/2011 10:31 CDT Dependent Habits Tobacco Use/Currently Using: No Smoking Status: Never smoker JAYY FRAGOSO - 07/13/2011 10:31 CDT Allergy Allergies (Active) NKA Estimated Onset Date: Unspecified ; Created By: VASQUEZ SERRANO; Reaction Status: Active ; Category: Drug ; Substance: NKA ; Type: Allergy ; Updated By: VASQUEZ SERRANO; Reviewed Date: 07/13/2011 10:28 CDT Source: [facility] POWERCHART Document Id: [id number] CDT!8 documented in this encounter Plan of Treatment Not on filedocumented as of this encounter Visit Diagnoses Not on filedocumented in this encounter
--- OUTSIDE RECORDS SUMMARY | 2022-05-12 17:07 | XMS_ITS | Encounter Summary ---
:1995 Author Organization [facility] Address [address] [place] [address] Care Team Providers Name Role Phone Unavailable Primary Care Provider Unavailable Reason for Visit Reason Comments Med Refill Encounter Details Date Type Department Care Team Description 01/26/2018 Refill Department of [facility] Hans Varghese M.D. Med Refill Medicine, [facility], [address] [place] [address] [address] [place] [address] [phone] Social History Tobacco Use Types Packs/Day Years Used Date Smoking Tobacco: Never Smokeless Tobacco: Never Sex Assigned at Date Recorded Not on file documented as of this encounter Miscellaneous Notes Telephone Encounter - Marlyn Hood, R.M.A. - 01/26/2018 3:23 PM CDT noted Telephone Encounter - Shima Hernandes - 01/26/2018 9:08 AM CDT Nurse review: Unable to pend medication; Discrepancy, medications differ (chart shows ethinyl estradiol 0.25-0.035mg) Provider: Michelle Varghese M.D. Name of Medication: Tri-Linyah Strength: 0.18/0.215/0.25 tabs Frequency: Take one tablet by mouth every day Quantity: 28 Refills: ___ Last Refill: 01/03/18 Pharmacy: [facility] documented in this encounter Plan of Treatment Not on filedocumented as of this encounter Visit Diagnoses Not on filedocumented in this encounter Additional Health Concerns Assessment Noted Time PHQ-9 Depression Total Score: 16 12/02/2017 10:[address] documented as of this encounter
--- OUTSIDE RECORDS SUMMARY | 2022-05-12 17:07 | XMS_ITS | Encounter Summary ---
:1995 Author Organization [facility] Address [address] [place] [address] Care Team Providers Name Role Phone Unavailable Primary Care Provider Unavailable Encounter Details Date Type Department Care Team Description 04/21/2017 Hospital Encounter HX [facility] Solomon Andrews M.D. [address] [place] [address] (Wo rk) Social History Tobacco Use Types Packs/Day Years Used Date Smoking Tobacco: Never Sex Assigned at Date Recorded Not on file documented as of this encounter Last Filed Vital Signs Vital Sign Reading Time Taken Comments Blood Pressure 108/70 04/21/2017 3:50 PM CDT Pulse 73 04/21/2017 3:50 PM CDT Temperature - - Respiratory Rate - - Oxygen Saturation - - Inhaled Oxygen Concentration - - Weight 68.5 kg (151 lb 0.2 oz) 04/21/2017 3:50 PM CDT Height - - Body Mass Index - - documented in this encounter Medications at Time of Discharge Medication Sig Dispensed Refills Start Date End Date NORGESTIMATE-ETHINYL Take 1 tablet by 0 4 08/24/2017 ESTRADIOL ORAL mouth daily. documented as of this encounter Progress Notes Solomon Andrews M.D. - 04/21/2017 3:36 PM CDT [id number] CHIEF COMPLAINT/REASON FOR VISIT Follow-up cough. HISTORY OF PRESENT ILLNESS Mercedes is a 21-year-old female who has had a 6 week history of a gradual worsening cough. She has not had any fevers. The cough for the most part is nonproductive. In the last day or two, she has started to have some congestion with this and some mucus when she coughs. No history of seasonal allergies. MEDICATIONS Reviewed and updated per EMR dated 04/21/2017. ALLERGIES Reviewed and updated per EMR dated 04/21/2017. VITAL SIGNS WEIGHT: 68.5 kg. TEMP: 36.9 DegC. PULSE: 73 /min. SYSTOLIC: 108 mmHg. DIASTOLIC: 70 mmHg. PHYSICAL EXAMINATION GENERAL: Patient is pleasant, bright, alert, and in no apparent distress. MENTAL: Affect and mood are both felt to be normal. ENT: Tympanic membranes are translucent with normal light reflex and landmarks. Oropharynx without erythema, injection, or exudate. Neck is supple without palpable adenopathy. No carotid bruits. She has a moderate amount of cerumen in both ears. HEART: Regular rate and rhythm with a normal S1 and S2. There was no S3 or S4. No murmurs, rubs, or gallops. LUNGS: Clear to auscultation bilaterally without rhonchi, rales, or wheezes. IMPRESSION/REPORT/PLAN 1. Protracted cough likely due to smouldering bronchitis. Plan: Empirically try Azithromycin 2 tabs on the first day and 1 tablet on days 2-5. Patient will follow up if symptoms do not completely resolve in 10-14 days at which point I would recommend evaluation with chest x-ray. This document serves as a record of services personally performed by Dr. Solomon Andrews. It was created on their behalf by Zo Lewis, a trained medical underwriter. The creation of this record isbased on the scribe's personal observations and the provider's statements to them. This document hasbeen checked and approved by the attending provider. Solomon Andrews M.D./niall Electronically Signed By: SOLOMON ANDREWS MD On: 05/07/2017 12:40 PM Source: [facility] MHSDOLBEYNONRADSYS Document Id: [id number] documented in this encounter Miscellaneous Notes Miscellaneous - Solomon Andrews M.D. - 04/21/2017 4:41 PM CDT Ambulatory Patient Summary [facility] [address] [place] [id number] Visit Information Name: MERCEDES PAULINO [facility] Number: [id number] Current Date: 04/21/2017 16:41:37 Physicians Attending Provider: SOLOMON ANDREWS MD Primary Care Provider: PCP, ELSEWHERE MERCEDES PAULINO has been given the following list [...] Take Indications/Special Instructions/Comments/Notes for Patient Medication Changes/Routing azithromycin (Zithromax Z-Andre 250 mg oral tablet) 2 tablets on day 1, then 1 tablet on days 2-5, Oral, as directed x 5 day(s) New Routed to [facility] [address] [place] [address] FLUoxetine (PROzac 10 mg oral tablet) 1 Tablet(s), Oral, once a day norgestimate-ethinyl estradiol (Ortho Tri-Cyclen oral tablet) 1 Tablet(s), Oral, once a day Stop Taking the Following Medications: Medication list as of 04-21-17 16:41 Attention: If you have any medications at home that are not on this list, DO NOT take them until youcontact your provider for clarification. Give a copy of your medication list to your primary care provider. Update your medication list any time medications or doses are changed and carry your medication list at all times in case of emergency. Electronically Signed By: Signed On: Your Allergies & Intolerances Substance Reaction Symptoms [...] if you dont have one. Go to [email or web address] and click on Create Your Account. Then, follow the directions to complete the online form. Youll be asked for your [facility] number which you can find at the top of this document. Your Goals/Additional instructions: Source: [facility] POWERCHART Document Id: [id number] Miscellaneous - Solomon Andrews M.D. - 04/21/2017 4:41 PM CDT Ambulatory Discharge Medication List [facility] [address] [place] [address] [place] [id number] Visit Information Name: MERCEDES PAULINO [facility] Number: [id number] Current Date: 04/21/2017 16:41:37 Attending Provider: SOLOMON ANDREWS MD Primary Care Provider: PCP, ELSEWHERE MERCEDES PAULINO has been given the following list of medications: Your Medications It is important to take your medications as directed. Use a pill box or chart to help remind you to take your medications. Please let your doctor or nurse know if you have problems taking your medications. Medication/Strength How to Take Indications/Special Instructions/Comments/Notes for Patient Medication Changes/Routing azithromycin (Zithromax Z-Andre 250 mg oral tablet) 2 tablets on day 1, then 1 tablet on days 2-5, Oral, as directed x 5 day(s) New Routed to [facility] [address] [place] [address] FLUoxetine (PROzac 10 mg oral tablet) 1 Tablet(s), Oral, once a day norgestimate-ethinyl estradiol (Ortho Tri-Cyclen oral tablet) 1 Tablet(s), Oral, once a day Stop Taking the Following Medications: Medication list as of 04-21-17 16:41 Attention: If you have any medications at home that are not on this list, DO NOT take them until youcontact your provider for clarification. Give a copy of your medication list to your primary care provider. Update your medication list any time medications or doses are changed and carry your medication list at all times in case of emergency. Electronically Signed By: Signed On: Additional Information: Source: [facility] POWERCHART Document Id: [id number] Miscellaneous - Camron Miller L.P.N. - 04/21/2017 3:54 PM CDT Health Assessment Health Assessment Entered On: 04/21/2017 15:55 CDT Performed On: 04/21/2017 15:54 CDT by CAMRON MILLER LPN Health Assessment Complete Health Assessment Complete or Modified : Annual Health Assessment Annual Health Assessment Completed : Yes CAMRON MILELR LPN - 04/21/2017 15:54 CDT Nutrition Nutrition Risk Factors by History Adult : None CAMRON MILLER LPN - 04/21/2017 15:54 CDT Functional Current Daily Living Assistance : None CAMRON MILLER LPN - 04/21/2017 15:54 CDT Dependent Habits Exposure to Tobacco Smoke : Other: none Smoking Status : Never smoker Tobacco 2A : No Tobacco Use/Currently Using : No Tobacco Use/Last 30 Days : No Tobacco Use/Last 12 months : No Alcohol Use : Yes CAMRON MILLER LPN - 04/21/2017 15:54 CDT Psychosocial Domestic Abuse Concerns : None Behavioral Health Screen/Safety Assmt : No [facility] Preference : No qualifying data available. CAMRON MILLER LPN - 04/21/2017 15:54 CDT Advance Directive Advanced Directives : No Advance Directive Additional Information : No CAMRON MILLER LPN - 04/21/2017 15:54 CDT Educ Needs Learning Style Preference Adult Grid Patient : Demonstration, Printed materials, Verbal explanation, Video/Educational TV Family : None CAMRON MILLER LPN - 04/21/2017 15:54 CDT Source: [facility] Oration Document Id: [id number] CDT!27 Miscellaneous - Camron Miller L.P.N. - 04/21/2017 3:50 PM CDT Adult Skin Care Therapist Intake/History Adult Skin Care Therapist Intake/History Entered On: 04/21/2017 15:54 CDT Performed On: 04/21/2017 15:50 CDT by CAMRON MILLER LPN Intake Chief Complaint : SDC follow up cough x 1.5 months Temperature Oral : 36.9 DegC(Converted to: 98.4 DegF) Peripheral Pulse Rate : 73 /min Heart Rhythm : Regular Systolic Blood Pressure : 108 mmHg Diastolic Blood Pressure : 70 mmHg NIBP Mean : 83 mmHg BP Location : Right upper extremity Blood Pressure Cuff Size : Regular SpO2 : 98 % Actual Weight : 68.5 kg(Converted to: 151 lb 0 oz) Weight Source : Standing scale Dosing Weight Clinic : 68.5 kg CAMRON MILLER LPN - 04/21/2017 15:50 CDT General Info Languages : Maldivian Is Patient Female and 13-50 no hysterectomy : Yes Status : Patient denies Are you ? : No CAMRON MILLER LPN - 04/21/2017 15:50 CDT Subjective Pain Symptoms : No CAMRON MILLER LPN - 04/21/2017 15:50 CDT Dependent Habits Exposure to Tobacco Smoke : Other: none Smoking Status : Never smoker Tobacco 2A : No Tobacco Use/Currently Using : No Tobacco Use/Last 30 Days : No Tobacco Use/Last 12 months : No CAMRON MILLER LPN - 04/21/2017 15:50 CDT Source: [employer] Document Id: [id number] CDT!29 documented in this encounter Plan of Treatment Not on filedocumented as of this encounter Visit Diagnoses Not on filedocumented in this encounter
--- OUTSIDE RECORDS SUMMARY | 2022-05-12 17:07 | XMS_ITS | Encounter Summary ---
:1995 Author Organization [facility] Address [address] [place] [address] Care Team Providers Name Role Phone Unavailable Primary Care Provider Unavailable Encounter Details Date Type Department Care Team Description 03/31/2016 Hospital Encounter [facility] Adrianna Faustin M.D. [address] [place] [address] (Wo rk) Social History Tobacco Use Types Packs/Day Years Used Date Smoking Tobacco: Never Assessed Sex Assigned at Date Recorded Not on file documented as of this encounter Last Filed Vital Signs Vital Sign Reading Time Taken Comments Blood Pressure 80/60 03/31/2016 3:16 PM CDT Pulse 68 03/31/2016 3:16 PM CDT Temperature - - Respiratory Rate 18 03/31/2016 3:16 PM CDT Oxygen Saturation - - Inhaled Oxygen Concentration - - Weight 64.9 kg (143 lb 1.3 oz) 03/31/2016 3:16 PM CDT Height - - Body Mass Index - - documented in this encounter Medications at Time of Discharge Medication Sig Dispensed Refills Start Date End Date NORGESTIMATE-ETHINYL Take 1 tablet by 0 4 08/24/2017 ESTRADIOL ORAL mouth daily. documented as of this encounter Progress Notes Sunil Faustin M.D. - 03/31/2016 12:00 AM CDT [id number] CHIEF COMPLAINT/REASON FOR VISIT A 20-year-old female with a 1-week history of left-sided ear drainage and irritation. No other specific concerns or problems. VITAL SIGNS Per nurse's notes on EMR today within normal limits. PHYSICAL EXAMINATION Oropharynx clear. Ears: Left side canal with some irritation. Some mild tenderness with external movement. Otherwise, no periauricular findings of significance. IMPRESSION/REPORT/PLAN Left otitis externa. Ciprodex until cleared. Follow up as needed if not improving or if other concerns or problems arise. Sunil Faustin M.D./ze Electronically Signed By: SUNIL FAUSTIN MD On: 04/01/2016 05:22 PM Source: [facility] MHSDOLBEYNONRADSYS Document Id: [id number] documented in this encounter Miscellaneous Notes Miscellaneous - Sunil Faustin M.D. - 03/31/2016 3:22 PM CDT Ambulatory Discharge Medication List [facility] [address] [place] [id number] Visit Information Name: AUDRA PAULINO [facility] Number: [id number] Visit Date: 03/31/2016 15:22:09 Attending Provider: UNKNOWN1, PROVIDER Primary Care Provider: [...] Take Indications/Special Instructions/Comments/Notes for Patient Medication Changes/Routing clindamycin topical (Cleocin T 1% topical solution) 1 michael, Topical, two times a day norgestimate-ethinyl estradiol (Ortho Tri-Cyclen oral tablet) 1 Tablet(s), Oral, once a day *spironolactone (spironolactone 50 mg oral tablet) 1 Tablet(s), Oral, once a day * You have let us know that you are not taking this medication as listed. Please talk with your primary care provider or the health care provider who prescribed the medication as soon as possible. Stop Taking the Following Medications: Medication list as of 03-31-16 15:22 Attention: If you have any medications at home that are not on this list, DO NOT take them until youcontact your provider for clarification. Give a copy of your medication list to your primary care provider. Update your medication list any time medications or doses are changed and carry your medication list at all times in case of emergency. Electronically Signed By: SUNIL FAUSTIN MD Signed On:31-MAR-2016 15:22:08 Additional Information: Source: [facility] POWERCHART Document Id: [id number] Miscellaneous - Sunil Faustin M.D. - 03/31/2016 3:22 PM CDT Ambulatory Patient Summary [address] [id number] Visit Information Name: AUDRA PAULINO [facility] Number: [id number] Current Date: 03/31/2016 15:22:10 Physicians Attending Provider: UNKNOWN1, PROVIDER Primary Care Provider: PCP, TREVOR AUDRA PAULINO [...] Take Indications/Special Instructions/Comments/Notes for Patient Medication Changes/Routing clindamycin topical (Cleocin T 1% topical solution) 1 michael, Topical, two times a day norgestimate-ethinyl estradiol (Ortho Tri-Cyclen oral tablet) 1 Tablet(s), Oral, once a day *spironolactone (spironolactone 50 mg oral tablet) 1 Tablet(s), Oral, once a day * You have let us know that you are not taking this medication as listed. Please talk with your primary care provider or the health care provider who prescribed the medication as soon as possible. Stop Taking the Following Medications: Medication list as of 03-31-16 15:22 Attention: If you have any medications at home that are not on this list, DO NOT take them until youcontact your provider for clarification. Give a copy of your medication list to your primary care provider. Update your medication list any time medications or doses are changed and carry your medication list at all times in case of emergency. Electronically Signed By: SUNIL FAUSTIN MD Signed On:31-MAR-2016 15:22:08 Your Allergies & Intolerances Substance Reaction Symptoms [...] if you dont have one. Go to [email or web address] and click on Create Your Account. Then, follow the directions to complete the online form. Youll be asked for your [facility] number which you can find at the top of this document. Your Goals/Additional instructions: Source: [facility] POWERCHART Document Id: [id number] Miscellaneous - Camron Vu, R.N. - 03/31/2016 3:16 PM CDT Adult Tractor Trailer Driver Intake/History Adult Tractor Trailer Driver Intake/History Entered On: 03/31/2016 15:18 CDT Performed On: 03/31/2016 15:16 CDT by CAMRON VU REVENUE CYCLE ADMINISTRATOR Intake Chief Complaint : left ear drainage and irriation Onset of Symptoms : last week Temperature Oral : 37 DegC(Converted to: 98.6 DegF) Peripheral Pulse Rate : 68 /min Respiratory Rate : 18 /min Heart Rhythm : Regular Systolic Blood Pressure : 80 mmHg (<LLOW) Diastolic Blood Pressure : 60 mmHg NIBP Mean : 67 mmHg BP Location : Right upper extremity Blood Pressure Cuff Size : Regular Actual Weight : 64.9 kg(Converted to: 143 lb 1 oz) Weight Source : Standing scale Dosing Weight Clinic : 64.9 kg CAMRON VU LPN - 03/31/2016 15:16 CDT General Info Information Given By : Patient Preferred Communication Mode : Verbal Languages : [place] Citizen Is Patient Female and 13-50 no hysterectomy : Yes Status : Patient denies Are you ? : No CAMRON VU LPN - 03/31/2016 15:16 CDT Subjective Pain Symptoms : No CAMRON VU LPN - 03/31/2016 15:16 CDT Dependent Habits Exposure to Tobacco Smoke : Other: none Smoking Status : Never smoker Tobacco 2A : No Tobacco Use/Currently Using : No Tobacco Use/Last 30 Days : No Tobacco Use/Last 12 months : No CAMRON VU LPN - 03/31/2016 15:16 CDT Source: [facility] POWERCHART Document Id: [id number] CDT!32 documented in this encounter Plan of Treatment Not on filedocumented as of this encounter Visit Diagnoses Not on filedocumented in this encounter
--- OUTSIDE RECORDS SUMMARY | 2022-05-12 17:07 | XMS_ITS | Encounter Summary ---
:1995 Author Organization [facility] Address [address] [place] [address] Care Team Providers Name Role Phone Unavailable Primary Care Provider Unavailable Encounter Details Date Type Department Care Team Description 03/23/2013 Hospital Encounter HX [facility] Becky Villegas M .D. Social History Tobacco Use Types Packs/Day Years Used Date Smoking Tobacco: Never Assessed Sex Assigned at Date Recorded Not on file documented as of this encounter Last Filed Vital Signs Vital Sign Reading Time Taken Comments Blood Pressure 90/50 03/23/2013 1:55 PM CDT Pulse 62 03/23/2013 1:55 PM CDT Temperature - - Respiratory Rate 16 03/23/2013 1:55 PM CDT Oxygen Saturation - - Inhaled Oxygen Concentration - - Weight 63 kg (138 lb 14.2 oz) 03/23/2013 1:55 PM CDT Height - - Body Mass Index - - documented in this encounter Consult Notes Becky Villegas M.D. - 03/23/2013 1:49 PM CDT [id number] CHIEF COMPLAINT/REASON FOR VISIT 1. Vaginal itching. 2. Loose perineal skin. 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 Prado of [facility]. This is her first visit to [facility]. She is an 17-year-old G0, P0 female with LMP of 03/09/2013.Patient reports regular menses every 20 days on control pills. They last for 3 days. No menorrhagia. No intermenstrual bleeding. No significant dysmenorrhea. She is not sexually active. She denies nausea, vomiting or diarrhea. No difficulty urinating. No change in bowel habits. No headaches or vision changes. No shortness of breath or chest pain. No fevers or chills. The patient complains of vaginal itching and irritation that has been ongoing for several months. The patient denies any vaginal discharge. No vaginal odor. She does have a lot of itching and irritation, however. She reports that she had an infected Bartholin's gland cyst several years ago that was incised and drained approximately 2 years ago. She reports that her vulva feels slightly abnormal and she feels some loose skin and is concerned that there might be something going on from the prior cyst from 2 years ago. ALLERGIES No known drug allergies. CURRENT MEDICATIONS 1. Traci control pills. 2. Terconazole, new prescription given today. PAST MEDICAL/SURGICAL HISTORY 1. Acne. PAST SURGICAL HISTORY 1. Ear tubes as a child. 2. Tonsils and adenoids as a child. 3. Jenks teeth extraction. PAST OBSTETRICAL HISTORY: None. SOCIAL HISTORY The patient is single. She lives with her parents. She denies tobacco, alcohol, or drug use. She is not sexually active. She denies history of STD or PID. She has never had a pelvic exam or Pap smear. ADULT PREVENTIVE SERVICES: Provided by Dr. Prado of [facility] in [place]. These records were not available for my review. PHYSICAL EXAMINATION WEIGHT: 63.0 kg. TEMPERATURE: 36.5. PULSE: 62. RESPIRATIONS: 16. BLOOD PRESSURE: 90/50. PHYSICAL EXAMINATION In general, well-developed, well-nourished female in no apparent stress. Alert and oriented x3. LUNGS: Clear to auscultation bilaterally with good inspiratory effort. HEART: Regular rate and rhythm without murmur. ABDOMEN: Soft, nontender, nondistended. Positive bowel sounds. No hepatosplenomegaly. No rebound. Noguarding. EXTREMITIES: No clubbing, cyanosis or edema. Nontender bilaterally. GENITAL EXAM: Genital examination shows Jean Pierre stage 5 hair development. There is normal external female genitalia with labia majora, labia minora are very thin and slightly adhesed to the labia majora. There is normal Bartholin's, urethral and [place] glands. Small vaginal opening with normal-appearingvaginal mucosa and normal appearing hymen. No lesions noted. No masses or tenderness noted. There isdiffuse erythema to the labia majora and labia minora with some excoriation suspected to be from scratching on the perineum. There is normal appearing clitoris and clitoral bowden. There is no vaginal discharge or odor. Bimanual exam deferred. Wet prep obtained. LABS: Wet prep shows positive hyphae. No clue cells. No trichomonas. Negative amine odor. Basic pH. IMPRESSION/REPORT/PLAN 1. Suspect candidal vulvovaginal infection. 2. Normal age appropriate perineal and genital examination. PLAN 1. I discussed the patient's symptoms. I suspect that she has candidal vulvovaginitis. I discussed this with the patient. Perineal hygiene discussed with the patient. I recommend she wear cotton underwear. I discussed treatment options with the patient and I am going to give her a prescription for Terazol vaginal cream to be used nightly for the next 7 days. I discussed the use of this medication with the patient. 2. I discussed my physical findings with the patient. She has normal genital examination. There is pamela thin labia minora bilaterally with some adhesions and agglutination to labia majora, but I feelthis is a normal development stage for this young lady and there are some areas of the labia minora that are starting to separate from the labia majora in a normal fashion and I believe that this is what she has been feeling as loose skin. Reassurance was given to the patient. As she continues to growand develop, I suspect that she will have normal separation of labia majora and labia minora. Reassurance is given to the patient. 3. I recommend patient followup with her primary provider for adult preventive services and as needed. 4. I would be happy to see the patient on an as needed basis. 5. STD prevention discussed with the patient. Contraception options are discussed with the patient. She is currently taking Traci to help regulate her menses and control her acne. Abstinence is encouraged. Becky Villegas M.D./fausto Electronically Signed By: BECKY VILLEGAS MD On: 03/27/2013 05:59 PM Source: [facility] MHSDOLBEYNONRADHOLGERS Document Id: [id number] documented in this encounter Miscellaneous Notes Miscellaneous - Becky Villegas M.D. - 03/23/2013 6:11 PM CDT Ambulatory Depart Summary [address] [id number] Visit Information Name: AUDRA PAULINO [facility] Number: [id number] Visit Date: 03/23/2013 18:11:03 Attending Provider: BECKY VILLEGAS MD Primary Care Provider: JOAN CALLE NICOLE FLOR has been given the following list of medications: Your Medications It is important to take your medications as directed. Use a pill box or chart to help remind you to take your medications. Please let your doctor or nurse know if you have problems taking your medications. Medication/Strength Dose Route Frequency Indications/Special Instructions/Comments/Notes terconazole topical (Terazol 7 vaginal cream) 1 michael Vaginal once a day (at bedtime) for 7 Days drospirenone-ethinyl estradiol (Traci 3 mg-0.03 mg oral tablet) 1 tab(s) Oral once a day adapalene topical (Differin 0.1% topical gel) 1 michael Topical once a day (at bedtime) Attention: If you have any medications at home that are not on this list, DO NOT take them until youcontact your provider for clarification. Additional Information: Source: [facility] POWERCHART Document Id: [id number] Miscellaneous - Becky Villegas M.D. - 03/23/2013 6:11 PM CDT Ambulatory Patient Summary [address] [id number] Visit Information Name: AUDRA PAULINO [facility] Number: [id number] Current Date: 03/23/2013 18:11:04 Physicians Attending Provider: BECKY VILLEGAS MD Primary Care Provider: JOAN CALLE Your Medications Here is a list of your medications. It is important to take your medications as directed. Use a pillbox or chart to help remind you to take your medications. Please let your doctor or nurse know if you have problems taking your medications. Medication/Strength Dose Route Frequency Indications/Special Instructions/Comments/Notes terconazole topical (Terazol 7 vaginal cream) 1 michael Vaginal once a day (at bedtime) for 7 Days drospirenone-ethinyl estradiol (Traci 3 mg-0.03 mg oral tablet) 1 tab(s) Oral once a day adapalene topical (Differin 0.1% topical gel) 1 michael Topical once a day (at bedtime) Attention: If you have any medications at home that are not on this list, DO NOT take them until youcontact your provider for clarification. Your Allergies & Intolerances Substance Reaction Symptoms Category Comments No Known Allergies Drug Your Problem List Problem Status Onset Comments Acne NOS Active Your Upcoming Appointments Date Time Location Reason Provider No Appointments found Your Goals/Additional instructions: Source: [facility] POWERCHART Document Id: [id number] Miscellaneous - oRse Moran L.P.N. 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 Filter Tank Tender Helper Intake/History Entered On: 03/23/2013 13:57 CDT Performed On: 03/23/2013 13:55 CDT by ROSE MORAN Intake Chief Complaint : consult- loose skin in vaginal area, itchy ROSE MORAN - 03/23/2013 13:57 CDT Temperature Core : 36.5 DegC(Converted to: 97.7 DegF) Peripheral Pulse Rate : 62 /min Respiratory Rate : 16 /min Heart Rhythm : Regular Systolic Blood Pressure : 90 mmHg (LOW) Diastolic Blood Pressure : 50 mmHg (LOW) NIBP Mean : 63 mmHg BP Location : Right upper extremity Blood Pressure Cuff Size : Regular Actual Weight : 63.0 kg(Converted to: 138 lb 14 oz) Weight Source : Standing scale Dosing Weight Clinic : 63 kg ROSE MORAN - 03/23/2013 13:55 CDT General Info Languages : Wolof ROSE MORAN - 03/23/2013 13:55 CDT Subjective Pain Symptoms : No ROSE MORAN - 03/23/2013 13:55 CDT Dependent Habits Tobacco Use/Currently Using : No Exposure to Tobacco Smoke : Other: none Smoking Status : Never smoker ROSE MORAN - 03/23/2013 13:55 CDT Source: [facility] DDN Document Id: [id number] CDT!3 documented in this encounter Plan of Treatment Not on filedocumented as of this encounter Visit Diagnoses Not on filedocumented in this encounter
--- OUTSIDE RECORDS SUMMARY | 2022-05-12 17:07 | XMS_ITS | Encounter Summary ---
:1995 Author Organization [facility] Address [address] [place] [address] Care Team Providers Name Role Phone Unavailable Primary Care Provider Unavailable Encounter Details Date Type Department Care Team Description 07/26/2017 Orders Only Urgent Care in [facility] Edgardo Gil, Dysuria [place] Katheryn [address] [place] [address] [facility] [phone] Social History Tobacco Use Types Packs/Day Years Used Date Smoking Tobacco: Never Sex Assigned at Date Recorded Not on file documented as of this encounter Plan of Treatment Not on filedocumented as of this encounter Visit Diagnoses Diagnosis Dysuria documented in this encounter Additional Health Concerns Assessment Noted Time PHQ-9 Depression Total Score: 1 06/09/2017 9:35 AM CDT documented as of this encounter
--- OUTSIDE RECORDS SUMMARY | 2022-05-12 17:07 | XMS_ITS | Encounter Summary ---
:1995 Author Organization [facility] Address [address] [place] [address] Care Team Providers Name Role Phone Unavailable Primary Care Provider Unavailable Reason for Visit Reason Comments Sinus Symptoms sinus pressure 2 weeks Nasal Congestion 2 weeks Earache Right ear, 2 weeks Encounter Details Date Type Department Care Team Description 09/15/2018 Office Visit Urgent Care in [place] [facility] [place], [place] Misael, (Primary Dx) [address] [facility] [place] [address] [address] [place] [phone] [address] Social History Tobacco Use Types Packs/Day Years Used Date Smoking Tobacco: Never Smokeless Tobacco: Never Sex Assigned at Date Recorded Not on file documented as of this encounter Last Filed Vital Signs Vital Sign Reading Time Taken Comments Blood Pressure 120/60 09/15/2018 3:05 PM LEAN FACILITATOR Pulse 67 09/15/2018 3:05 PM LEAN FACILITATOR Temperature 36.8 ??C (98.3 ??F) 09/15/2018 3:05 PM LEAN FACILITATOR Respiratory Rate 20 09/15/2018 3:05 PM LEAN FACILITATOR Oxygen Saturation 100% 09/15/2018 3:05 PM LEAN FACILITATOR Inhaled Oxygen Concentration - - Weight 75.1 kg (165 lb 9.1 oz) 09/15/2018 3:05 PM LEAN FACILITATOR Height - - Body Mass Index - - documented in this encounter Progress Notes Misael Ferris P.A.-C. - 09/15/2018 2:15 PM CST SUBJECTIVE CHIEF COMPLAINT / REASON FOR VISIT Mercedes Snell is a 23 y.o. female who presents for evaluation of Sinus Symptoms (sinus pressure2 weeks); Nasal Congestion (2 weeks); and Earache (Right ear, 2 weeks). HISTORY OF PRESENT ILLNESS Patient states that She has been feeling ill for 2 week(s). she describes her symptoms as following: nasal congestion, purulent rhinorrhea, cough, sore throat, headaches, facial pain Known exposure: none pertinent. The sinus pain has been Moderate and located bilateral maxillary The following portions of the patient's history were reviewed and updated as appropriate: allergies,current medications, family history, medical history, social history, surgical history and problem list. Brief Review of Systems: A brief review of systems was negative except for that mentioned in the history of present of illness. Current Outpatient Medications Medication Sig ??? FLUoxetine (for_PROzac) 20 mg capsule Take 1 capsule (20 mg total) by mouth daily. ??? norgestimate-ethinyl estradiol (TRI-LINYAH) 0.18 mg/0.215 mg/0.25 mg-35 mcg (28) per tablet Take1 tablet by mouth daily. ??? amoxicillin-pot clavulanate (AUGMENTIN) 875-125 mg per tablet Take 1 tablet by mouth every 12 (twelve) hours for 10 days. No Known Allergies OBJECTIVE PHYSICAL EXAM BP 120/60 (BP Location: Right arm, Patient Position: Sitting, Cuff Size: Regular) Pulse 67 Temp 36.8 ??C (Oral) Resp 20 Wt 75.1 kg SpO2 100% ? No There is no height or weight on file to calculate BMI. GENERAL: this patient is alert and awake in no acute distress, comfortable and cooperative, respondsappropriately to auditory and visual stimmuli HEENT: Sinus/Nose: purulent discharge, moderate congestion, sinus tenderness bilateral, small, benign anterior cervical nodes bilaterally, PERRLA, Tonsils / Pharynx: mucosa inflamed, tonsils normal bilaterally, pharynx inflamed, cobblestoned; Ears: R TM - normal landmarks and mobility without significant erythema or bulging, no tragus or pinnae tenderness L TM - normal landmarks and mobility without significant erythema or bulging, no tragus or pinnae tenderness LUNGS: CTA, no wheezing/rales or rhonchi SKIN: normal color, temperature and moisture, no rashes or lesions are noted ASSESSMENT/PLAN: 1. Sinusitis Acute - amoxicillin-pot clavulanate (AUGMENTIN) 875-125 mg per tablet; Take 1 tablet by mouth every 12 (twelve) hours for 10 days. Dispense: 20 tablet; Refill: 0 Patient was advised to stay hydrated and rested. she was advised to consider steamy showers, rest, heat to the sinuses. OTC pain relief with acetaminophen and ibuprofen/naproxen was recommended. Followup in 2-3 days was advised with primary care provider if not better. Advised Patient about possible side effects of the prescribed/recommended medication(s). Misael Ferris P.A.-C. FACILITATOR documented in this encounter Plan of Treatment Not on filedocumented as of this encounter Visit Diagnoses Diagnosis Sinusitis Acute - Primary documented in this encounter Additional Health Concerns Assessment Noted Time PHQ-9 Depression Total Score: 16 12/02/2017 10:[address] documented as of this encounter
[2022-05-12 17:19] VITALS: PULSE 85; O2SAT 96
[2022-05-12 17:23] VITALS: BP 107/57; PULSE 81; RESP 18; TEMP 37.1
--- NOTE | 2022-05-12 17:42 | CRLHL7_ITS ---
For Patients: As a result of the Century Cures Act, medical imaging exams and procedure reports are released immediately into your electronic medical record. You may view this report before your referring provider. If you have questions, please contact your health care provider. INDICATION: Premature rupture of membranes, diamniotic/dichorionic twins COMPARISON: 03/31/2022, 02/26/2022 TECHNIQUE: Real-time solorio-scale imaging of the pelvis was performed. FINDINGS: Twin A: heart rate 147 beats per minute. Anterior placenta. Right breech position. Cervix closed measuring 4.2 cm. Single deepest pocket 5.1 cm. Estimated weight 319 grams, 80th percentile. BPD 70th percentile. HC 40th percentile. AC 77th percentile. FL 55th percentile. Sonographic gestational age 19 weeks 5 days and sonographic due date 10/01/2022. Twin B: heart rate 142 beats per minute. Anterior placenta. Left vertex position. Cervix closed measuring 4.2 cm. Single deepest pocket 0.6 cm. Estimated weight 305 grams, 67th percentile. BPD 36th percentile. HC 47th percentile. AC 78th percentile. FL 33rd percentile. Sonographic gestational age 19 weeks 3 days and sonographic due date 10/03/2022. IMPRESSION: Regarding Twin B, there is oligohydramnios due to premature rupture of membranes. Normal amniotic fluid around Twin A. Dictated by Nba Siu MD @ 05/13/2022 9:27:13 AM (Electronically Signed)
--- NOTE | 2022-05-12 18:19 | PM.OBHPAP1 ---
OB - H&P; HPI Antepartum History of Present Illness Time Seen by Provider: 05:30 Date Seen: 05/12/22 Chief complaint: Gush of fluid from the vagina Narrative: This note was opened in error. See other antepartum note. Meds Home Medications and Allergies Home Medications Medication Instructions Recorded Confirmed Type aspirin 81 mg tablet,delayed 81 mg PO QDAY 04/23/22 05/12/22 History release 103-folic acid 400 1 tab PO DAILY 04/23/22 05/12/22 History mcg-omeg3 32.5 mg-dha-fish oil chew tablet ( with DHA and Folic Acid) Allergies Allergy/AdvReac Type Severity Reaction Status Date / Time No Known Allergies Allergy Unverified 04/23/22 13:18 OB - H&P: Exam Physical Exam: Vital signs: Temp Pulse Resp BP Pulse Ox 98.8 F 81 18 107/57 L 96 05/12/22 17:23 05/12/22 17:23 05/12/22 17:23 05/12/22 17:23 05/12/22 17:19
--- NOTE | 2022-05-12 18:32 | P.OBHP_ITS ---
OB - H&P; HPI Antepartum History of Present Illness Time Seen by Provider: 05:30 Date Seen: 05/12/22 Chief complaint: Gush of fluid from the vagina Narrative: Mercedes Dhaliwal is a 26 year old at 19w3 days w/ spontaneous di/di twins LUCRETIA: 10/04/2022 by LMP 12/28/21 c/w first trimester ultrasound. Mercedes presented to the center at approximately 5:15 p.m. on 05/12/2022 after noticing some cramping in her back and pelvis with increased pelvic pressure and she went to the restroom in approximately 2:30-3 o'clock and had a bowens of air from her vaginal canal followed by some fluid she does not think that it was urine. After that episode there was no further cramping or pelvic pressure. She left work at 3:00 p.m. 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 She picked him up at approximately 4:00 p.m. and when she was about to get back in the car she had a nother gush of fluid that completely saturated her pants and ran down her leg. She dropped her son off at her parent's house in came to the center with concern for possible rupture of membranes. She denies cramping/contractions, abdominal or pelvic pain, fever, malodorous vaginal discharge, vaginal bleeding, dysuria, urinary frequency or urgency. A urinalysis and urine culture, vaginal gonorrhea chlamydia test was obtained, GBS and wet prep. I discussed doing a sterile speculum exam and collecting vaginal fluid for ferning test. AmniSure test is not accurate prior to 23-24 weeks gestation. 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 Stable on prozac 40 mg SURGICAL HISTORY 1996 - tonsillectomy and adenoids 2012 - wisdom teeth 2013 - lymph node removed neck ear tubes X 4 2020 - c/s FAMILY HX maternal grandmother - cancer. 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 Lives with: RickiDeboraDavid Pets: dog, cats, cows, chickens - live [place] the farm (outside) Abuse: Denies past/unable to assess present Special Diet: Denies Ok with a blood transfusion: yes Culture or faith beliefs: denies RISK FACTORS Exercise Times/wk: T20 Program and Walks/Jogs w/ David Depression/Anxiety: both, stable with prozac JAMAAL: 0 PHQ 9: 0 Seat Belt Use: Routinely Smoking: Denies past/present Alcohol/day: Denies while Caffeine: denies Drug Use: Denies past/present Chicken Pox: believes she had the vaccine MRSA: Denies Planning to breastfeed: Plans to breastfeed, tried for 2 weeks with David and then did pumping until 8 months Meds Home Medications and Allergies Home Medications Medication Instructions Recorded Confirmed Type aspirin 81 mg tablet,delayed 81 mg PO QDAY 04/23/22 05/12/22 History release 103-folic acid 400 1 tab PO DAILY 04/23/22 05/12/22 History mcg-omeg3 32.5 mg-dha-fish oil chew tablet ( with DHA and Folic Acid) Allergies Allergy/AdvReac Type Severity Reaction Status Date / Time No Known Allergies Allergy Unverified 04/23/22 13:18 OB - H&P: Exam Physical Exam: Vital signs: Temp Pulse Resp BP Pulse Ox 98.8 F 81 18 107/57 L 96 05/12/22 17:23 05/12/22 17:23 05/12/22 17:23 05/12/22 17:23 05/12/22 17:19 Narrative: General: Pleasant, woman in no acute distress appears anxious and somewhat worried regarding possibility of her water being broken. Vital signs: Temperature 98.8? F, blood pressure 107/57, pulse 81, respiratory were rate 18. Cardiovascular: Regular rate and rhythm without gallop, rub or murmur. Chest: Clear to auscultation bilaterally without wheezes, rales or rhonchi. Abdomen: Gravid, nontender to palpation. Normal bowel sounds throughout. Keddie: Multiple small contractions consistent with irritability. Patient is not feeling any cramping or contractions. heart rates: By [place]: Twin a 145, twin B 140. Pelvic exam: External genitalia, urethral meatus, [place]'s and Bartholin's glands appear normal. There appears to be watery discharge prior to placing a speculum. A sterile, bivalve, metal speculum was placed in the vagina and significant pooling was visualized with clear fluid feeling at least half of the vaginal canal. A cotton swab was used collect some of this clear fluid and was placed on a microscope slide and allowed to dry. Visually the cervix appears 0.5 cm dilated. No bimanual exam was performed. Extremities: No pain, edema, cyanosis or clubbing. OB - Results Labs Labs: Ferning(+) by examination of microscope slide by Mercedes Junior MD GC/chlamydia and GBS pending UA and urine culture pending Wet prep and Bedside ultrasound performed for GUTIERREZ of twins and cervical length. Verbal report from the health physics technician: Twin a on maternal left in breech presentation, S DP: 5.0 cm. stomach was not identified. Twin B on mat ernal right, vertex, GUTIERREZ 0.5 cm, stomach also not visualized. Cervical length is normal: 4.2 cm without funneling. OB - A/P Antepartum Assessment and Plan (1) premature rupture of membranes (PPROM) with unknown onset of labor: Problem details: Twin B: GUTIERREZ 0.5cm. 19w3D Status: Acute Assessment and Plan: 1. Await results of wet prep, UA/UCx, CBC w/ diff, GC/Chlamydia, and GBS tests. 2. Official USN results pending. 3. I discussed the patient's case with the [facility] physician who is on-call for the [facility], Dr. Bhatt. Recommendations: * home management with t.i.d. temperature check. If her temperature is greater than 100 she should go to the center for evaluation. * Weekly CBC with differential. * She has an appointment for level 2 ultrasound on Tuesday05/14/2022 and I called and left a message for the [facility] RN coordinator to add a consultation with an [facility] physician onto her level 2 ultrasound due to P PROM of twin B on 05/12/2022. * Typically induction of labor is recommended if she spikes a temperature, has elevated white blood cell count, malodorous vaginal discharge or significant uterine/abdominal pain. * She may go into spontaneous labor. * If she does not go into spontaneous labor and has no evidence of infection she will likely be admitted to an unit for betamethasone, magnesium and antibiotics sometime between 22-23 weeks gestation. (2) Dichorionic diamniotic twin gestation: Status: Acute
[2022-05-12 18:48] LABS: Clue Cells <20% Clue Cells Seen (None Seen); Trichomonas No Trichomonas Seen (None Seen); Yeast No Yeast Seen (None Seen)
[2022-05-12 19:30] LABS: Basophils Percent Auto 0.1 % (0.0-3.0); Eosinophils Percent Auto 0.6 % (0.0-7.0); Hematocrit 33.3 % (33.0-51.0); Hemoglobin* 11.2 gm/dL (12.0-16.0); Immature Granulocytes Abs Auto 0.02 K/uL (0.00-0.30); Lymphocytes Percent Auto 13.9 % (20-44); Mean Corpuscular HGB Conc 34 gm/dL (32-36); Mean Corpuscular Hemoglobin 30 pg (26-34); Mean Corpuscular Volume 89 fL (80-100); Monocytes Percent Auto 5.1 % (0.0-11.0); Neutrophils Percent Auto 80.2 % (42.0-72.0); Platelet Count* 263 K/uL (140-440); RDW Coefficient of Variation % 13.1 % (11.5-15.5); Red Blood Count 3.74 m/uL (4.00-5.20); White Blood Count* 13.39 K/uL (4.50-11.00)
[2022-05-12 19:31] LABS: Appearance Urine Clear (Clear); Bilirubin Urine Negative (Negative); Blood Urine 1+ (Negative); Color Urine Yellow (Yellow); Glucose Urine Negative (Negative); Ketones Urine Negative (Negative); Leukocyte Esterase Urine Negative (Negative); Nitrite Urine Negative (Negative); Protein Urine Negative (Negative); Specific Gravity Urine 1.015 (1.000-1.030); Urobilinogen Urine 0.2 (0.2-1.0); pH Urine 6.5 (5.0-8.5)
[2022-05-12 19:34] LABS: Slide Review Reflex No
[2022-05-12 20:02] LABS: Chlamydia DNA Amplified* NOT DETECTED (No Detected); GC DNA Amplified* NOT DETECTED (No Detected)
[2022-05-12 20:13] LABS: RBC Urine 0-2 (0-2); WBC Urine 0-2 (0-5)
[2022-05-13 19:03] LABS: Strep B DNA Probe POSITIVE (Negative)
--- NOTE | 2022-05-13 19:35 | PC.NURSE ---
Pt called at 1845 to inform Center that she is having increased, blood tinged discharge she described as, Goopy. Pt reports that she is going to be driving to [facility] for her care and will be leaving soon. Pt reports that she would like Center Staff to inform [facility] of her anticipated arrival.
== END 2022-05-12 20:27 | disposition home or self-care (01) ==
LOC: OB OUT 17:05 → OB 17:08
PROVIDERS: Obstetrics & Gynecology; Visit Provider Advanced Practice Midwife
DX: O42.912 Preterm premature rupture of membranes, unspecified as to length of time between rupture and onset of labor, second trimester (principal); O30.042 Twin pregnancy, dichorionic/diamniotic, second trimester; Z3A.19 19 weeks gestation of pregnancy
CPT/HCPCS: 36415; 76815; 81003; 81015; 85025; 87081; 87210; 87491; 87591; 87653; 99213

== ENCOUNTER 2023-05-19 07:02 | Outpatient (CLI) | payer BC, SELFPAY ==
--- NOTE | 2023-05-19 07:15 | CRLHL7_ITS ---
For Patients: As a result of the Century Cures Act, medical imaging exams and procedure reports are released immediately into your electronic medical record. You may view this report before your referring provider. If you have questions, please contact your health care provider. INDICATION: First trimester scan, establish dates. COMPARISON: None. TECHNIQUE: Real-time solorio-scale imaging of the pelvis was performed. FINDINGS: Sonographic imaging demonstrates a single living intrauterine gestation. The embryo demonstrates a regular cardiac rate measuring 168 beats per minute. The embryo`s crown-rump length measurement of 2.1 cm corresponds to a gestational age of 8 weeks 5 days with a sonographic due date of December 24, 2023. There is a normal-appearing yolk sac measuring 3 mm. There are no gross abnormalities noted within the embryo at this early state of development. The placenta has not yet developed. The gestational sac has a normal appearance. Small amount of perigestational/subchorionic hemorrhage near the fundus measuring up to 11 mm. The amount of fluid within the sac appears appropriate for gestational age. The cervix is closed. The myometrium appears normal. The ovaries are of normal size. The right ovary measures 2.8 x 1.5 x 1.3 cm. The left ovary measures 3.2 x 2.1 x 2.2 cm. The left ovary contains a small corpus luteum cyst of measuring 1.8 x 1.8 x 1.7 cm. There are no suspicious fluid collections noted in the cul-de-sac. IMPRESSION: Normal first trimester OB ultrasound exam. Gestational age calculated at 8 weeks 5 days with a sonographic due date of December 24, 2023. Dictated by Parag Murphy MD @ 05/19/2023 8:29:05 AM (Electronically Signed)
== END 2023-05-19 07:03 | disposition home or self-care (01) ==
LOC: US 07:03
PROVIDERS: Visit Provider Obstetrics & Gynecology
DX: Z34.91 Encounter for supervision of normal pregnancy, unspecified, first trimester (principal); Z3A.08 8 weeks gestation of pregnancy
CPT/HCPCS: 76817; 86703; 86803; 86850; 86900; 86901; 87086; 87340; 87491; 87591

== ENCOUNTER 2023-05-19 08:32 | Outpatient (CLI) | payer BC, SELFPAY ==
[2023-05-19 12:36] LABS: Chlamydia DNA Amplified* NOT DETECTED (No Detected); GC DNA Amplified* NOT DETECTED (No Detected)
== END 2023-05-19 08:33 | disposition home or self-care (01) ==
PROVIDERS: Visit Provider Physician Assistant
DX: Z34.90 Encounter for supervision of normal pregnancy, unspecified, unspecified trimester (principal)
CPT/HCPCS: 86592; 86703; 86762; 86787; 86803; 86850; 86900; 86901; 87086; 87340; 87491; 87591

== ENCOUNTER 2023-06-17 09:06 | Outpatient (CLI) | payer BC, SELFPAY ==
--- NOTE | 2023-06-17 09:15 | CRLHL7_ITS ---
For Patients: As a result of the Century Cures Act, medical imaging exams and procedure reports are released immediately into your electronic medical record. You may view this report before your referring provider. If you have questions, please contact your health care provider. CLINICAL HISTORY: First trimester screening. TECHNIQUE: Real time solorio scale imaging of the fetus was performed using a transabdominal approach. FINDINGS: Sonographic imaging demonstrates a single living intrauterine gestation. The fetus demonstrates a regular cardiac rate measuring 144 beats per minute. The crown rump length measurement of 6.9 cm corresponds to a gestation of 13 weeks 1 day which is concordant with the earlier dating ultrasound. A nuchal translucency measurement of 2.3 mm was obtained for screening purposes. IMPRESSION: Nuchal translucency measurement obtained for first trimester screen. Dictated by Nba Siu MD @ 06/17/2023 11:58:30 AM (Electronically Signed)
== END 2023-06-17 09:07 | disposition home or self-care (01) ==
LOC: US 09:06
PROVIDERS: Visit Provider Physician Assistant
DX: Z34.91 Encounter for supervision of normal pregnancy, unspecified, first trimester (principal); Z3A.13 13 weeks gestation of pregnancy
CPT/HCPCS: 36415; 76801; 76813; 84163; 84702

== ENCOUNTER 2023-08-11 17:20 | Outpatient (CLI) | payer BC, SELFPAY ==
[2023-08-11 17:24] VITALS: BP 111/63; PULSE 75; RESP 16; TEMP 36.8
[2023-08-11 18:10] LABS: Amnisure Rom* Negative
[2023-08-11 18:18] LABS: Appearance Urine Clear (Clear); Bilirubin Urine Negative (Negative); Blood Urine Negative (Negative); Color Urine Yellow (Yellow); Glucose Urine Trace (Negative); Ketones Urine Negative (Negative); Leukocyte Esterase Urine Negative (Negative); Nitrite Urine Negative (Negative); Protein Urine Negative (Negative); pH Urine 7.5 (5.0-8.5)
[2023-08-11 18:33] LABS: Clue Cells No Clue Cells Seen (None Seen); Trichomonas No Trichomonas Seen (None Seen); Yeast No Yeast Seen (None Seen)
== END 2023-08-11 18:48 | disposition home or self-care (01) ==
LOC: OB OUT 17:20 → OB 17:23
PROVIDERS: Visit Provider Obstetrics & Gynecology
DX: Z34.92 Encounter for supervision of normal pregnancy, unspecified, second trimester (principal); Z3A.20 20 weeks gestation of pregnancy
CPT/HCPCS: 81003; 84112; 87210; 99213

== ENCOUNTER 2023-10-03 09:47 | Outpatient (CLI) | payer BC, SELFPAY | END 2023-10-03 09:48 | disposition home or self-care (01) | LOC: NFLDREF 09:48 | PROVIDERS: Visit Provider Obstetrics & Gynecology | DX: O26.899 Other specified pregnancy related conditions, unspecified trimester (principal); Z11.3 Encounter for screening for infections with a predominantly sexual mode of transmission | CPT/HCPCS: 86592; 86850; J2791 ==

== ENCOUNTER 2023-10-24 11:24 | Outpatient (CLI) | payer BC, SELFPAY ==
--- OUTSIDE RECORDS SUMMARY | 2023-10-24 11:27 | XMS_ITS | Clinical Summary ---
Author Name Unknown Organization [employer] [facility] Address [place], [place] [address] Care Team Providers Care Sifting Operator Name Role Phone Clinic, [facility] Pro vider Allergies No known active allergies Medications Medication Sig Dispensed Refills Start Date End Date Status FLUoxetine (PROZAC) 20 mg capsuleIndications:G AD (generalized anxiety disorder) Take 1 Capsule (20 mg) by mouth once daily. 90 capsule. 1 03/16/2021 Active 25/iron fum/folic/dha (-1 ORAL) Take by mouth. 0 Act robert Active Problems Problem Noted Date Diagnosed Date Premature rupture of membranes in second trimest er 05/13/2022 Dichorionic diamniotic twin in second trimester 05/13/2022 Mixed hearing loss, bilateral 09/14/2007 Immunizations Name Administration Dates Next Due DTaP 07/17/1999 DTaP-HIB (TriHIBIT) 06/18/1996, 5,1994,08/17/19 94 Hepatitis A (Peds) 12/14/2007,04/17/2007 Hepatitis B (Peds) 03/01/1995,1994, 994 Human Papilloma Virus Vaccine 12/14/2007, 007,04/17/2007 10/19/2007 MMR 06/27/2000,09/13/1995 Meningococcal Vaccine (Menactra) 04/17/2007 Oral Polio Vaccine 07/07/1999, 5,1994,08/17/19 94 Tdap 04/17/2007 Varicella Vaccine 05/15/2015,07/07/1999 Family History Medical History Relation Name Comments Heart Disease Maternal Grandfather Cancer Maternal Grandmother uterus Cancer-breast Maternal Grandmother Relation Name Status Comments Father Maternal Grandfather Maternal Grandmother Mother Alive Social History Tobacco Use Types Packs/Day Years Used Date Smoking Tobacco: Never Smokeless Tobacco: Never Alcohol Use Standard Drinks/Week Comments Yes 0 (1 standard drink = 0.6 oz pur e alcohol) Social Connections Answer Date Recorded Frequency of Communication with Friends and Fami ly Not on file 01/03/2023 Financial Resource Strain Answer Date R ecorded Difficulty of Paying Living Expenses Not on file 09/26/2021 Difficulty of Paying Living Expenses Not on file 09/26/2021 Sex and Gender Information Value Date Recorded Sex Assigned at Not on file Gender Identity Not on file Sexual Orientation Not on file Obstetrics History Para Term AB IAB SAB Ectopic Multiple Livin g Live Births 2 1 0 1 1 1 Date Outcome GA Total Labor Labor/2nd/3rd Weight Sex Delivery Anes PTL Kim A1 A5 Name Cl in Li vi ng 05/23 Para 20w 6d 9h 10m 5h 27m/0h 04m/3h 39m M Vag-Spont IV Meds Y Feta l Barbara se 0 0 DARCI LALA FD, Janel le, MD Complications: Hem orrhage,Retained placenta, demise affecting delivery Delivery Location:[facility] ( [facility]) 05/23 Para 20w 6d 9h 10m 5h 27m/0h 39m/3h 04m M Vag-Spont IV Meds Y Feta l Barbara se 0 0 DARCI LALA FD, Janel le, MD Complications: Hem orrhage, demise affecting delivery Delivery Location:Hospital ( [facility]) Last Filed Vital Signs Vital Sign Reading Time Taken Comments Blood Pressure 97/54 05/24/2022 8:00 AM CDT Pulse 81 05/24/2022 8:00 AM CDT Temperature 36.7 ??C (98.1 ??F) 05/24/2022 8:00 AM CD T Respiratory Rate 16 05/24/2022 8:00 AM CDT Oxygen Saturation 100% 05/23/2022 11:02 PM CDT Inhaled Oxygen Concentration - - Weight 87 kg (191 lb 14.4 oz) 05/13/2022 8:54 PM CDT Height 170.2 cm (5' 7) 05/13/2016 8:06 AM CDT Body Mass Index 30.06 05/13/2016 8:06 AM CDT Plan of Treatment Health Maintenance Due Date Last Done Comments COVID-19 vaccine series (#1) 1994 Depression screening for age 12+ 2006 HIV for age 15-65 2009 Hepatitis C screening for age 18-79 2012 Tetanus booster 04/17/2017 04/17/2007 BMI (ht and wt on same day) for age 18+ 05/13/2017 05/13/2016 Influenza for age 9-49 05/27/2023 Pap test for age 21-65 07/05/2025 , 07/05/2022, 05/13/2016, Additional history exists Tdap Completed 04/17/2007 Pneumococcal series for age 6-64 Aged Out No longer eligible based on patient's age to complete this topic Advance Directives Latest Code Status on File Code Status Date Activated Date Inactivated Comments Full Code 05/23/2022 7:43 AM 05/24/2022 5:03 PM Question Answer Comments Code Status Discussion: Reviewed Preferences Care Teams Sifting Operator Relationship Specialty Start Date End Date [facility] [facility] [place] [address] PCP - General 03/20/20
--- OUTSIDE RECORDS SUMMARY | 2023-10-24 11:27 | XMS_ITS | Clinical Summary ---
Author Name Unknown Organization [place] Address [facility] [place] [address] Care Team Providers Care Journalist Name Role Phone Xiomara Thomas MD Unavailable [phone] Audra Olmstead Primary Care Provider Allergies No known active allergies Medications Medication Sig Dispensed Refills Start Date End Date Status busPIRone (BUSPAR) 15 MG tablet 0 Active FLUoxetine (PROZAC) 40 MG capsule Take 40 mg by mouth daily 0 04/06/2023 Active Fplsocgo-Dwp-Ib-FA ( 1 + IRON OR) Take by mouth. 0 Active Active Problems Patient Care Coordination No te Formatting of this note is d ifferent from the original. [facility] Care Plan: For details of imaging, genetic testing and consultations, please see the maternal medical record: Audra Dhaliwal MR#:[id number] ANTE admission planned for 22 wks- 05/31/22 @ 0900, declined to meet with NICU prior to admission Delivery hospital: [facility] DIAGNOSIS: DIAGNOSIS / DIAGNOSES: 1) di/di twins- F2 PPROM 05/11 GENETIC (and other) TESTING: PERTINENT MATERNAL CONDITIONS: 1) CARE PLAN: 1) Ultrasounds - 2) Other Imaging - 3) surveillance - Weekly fluid checks until admission 4) Relocation - 5) care with - 6) Labs - (look in media tab / care everywhere for results) Blood type: Ab screen: Rhogam: HepBSAg: Rubella: RPR: HIV: Hep C: GCT: GBS: Covid test: 7) Vaccines: Tdap- Flu Vaccine- Covid- 8) PHQ-9: 9) care team and consultations - A) Genetic Counselor - B) Neonatology - C) Social Work - D) DELIVERY PLAN: 1) Hospital - 2) Gestational age - 3) Route - 4) Notifications in labor - 5) Genetics/specimen collection for baby: BABY PLAN: 1) Baby to go to 2) Imaging to be done - A) immediately after - B) prior to hospital discharge - C) after discharge from the hospital - 3) Consults to be done - A) immediately after - B) prior to hospital discharge - C) after discharge from the hospital - 4) Medications - REFERRING PROVIDER(S): 1) Primary OB Provider: 2) Other Sub-Specialty Provider: 3) Anticipated Pediatric Provider: DEMOGRAPHICS: Patient contact info: [phone] [facility] [address] Partner's name: Baby's name: Problem Noted Date Diagnosed Date Cervical cerclage suture present 06/22/2023 Estimated Date of Delivery Comme nts Yes 12/24/2023 Based on last me nstrual period of 03/19/2023 Resolved Problems Problem Noted Date Diagnosed Date Resolved Date Hx of cerclage, currently 06/22/2023 06/22/2023 Encounters Date Type Department Care Team Description 07/29/2023 10:00 AM CDT Office Visit [facility] [place] [address] [place] [address] Xiomara Thomas MD Nyholm, Jessica Lea, MD Contag, Stephen A, MD History of delivery, currently (Primary Dx); Encounter for routine screening for malformation using ultrasound; Cervical cerclage suture present in second trimester 07/29/2023 9:07 AM CDT - 07/29/2023 11:59 PM CDT Hospital Encounter [facility] [place] [address] [place] [address] Xiomara Thomas MD Nyholm, Jessica Lea, MD Contag, Stephen A, MD related condition, antepartum; History of delivery, currently Discharge Disposition: Home or Self Care 07/29/2023 Travel from Last 3 Months Social History Tobacco Use Types Packs/Day Years Used Date Smoking Tobacco: Never Smokeless Tobacco: Never Tobacco Cessation:Counseling Given: Not Answered Alcohol Use Standard Drinks/Week Comments Not Currently 0 (1 standard drink = 0.6 oz pur e alcohol) Adolescent Education Answer Date Record ed Getting School Help Needed Not on file 06/18 Estimated Date of Delivery Comme nts Yes 12/24/2023 Based on last me nstrual period of 03/19/2023 Sex and Gender Information Value Date Recorded Sex Assigned at Not on file Gender Identity Not on file Sexual Orientation Not on file Last Filed Vital Signs Vital Sign Reading Time Taken Comments Blood Pressure 108/63 06/22/2023 2:59 PM CDT Pulse 77 06/22/2023 1:27 PM CDT Temperature 36.6 ??C (97.9 ??F) 06/22/2023 1:27 PM CD T Respiratory Rate 16 06/22/2023 1:27 PM CDT Oxygen Saturation 100% 06/22/2023 3:00 PM CDT Inhaled Oxygen Concentration - - Weight 89.8 kg (198 lb) 06/22/2023 8:02 AM CDT Height 172.7 cm (5' 8) 06/22/2023 8:02 AM CDT Body Mass Index 30.11 06/22/2023 8:02 AM CDT Plan of Treatment Health Maintenance Due Date Last Done Comments ADVANCE CARE PLANNING 1995 ANNUAL REVIEW OF HM ORDERS 1994 YEARLY PREVENTIVE VISIT 1994 COVID-19 Vaccine (#1) 1999 Pneumococcal Vaccine: Pediatrics (0 to 5 Years) and At-Risk Patients (6 to 64 Years) (1 of 2 - PCV) 2000 HIV SCREENING 2009 HEPATITIS C SCREENING 2012 INFLUENZA VACCINE (#1) 2023 , 08/11/2020, 01/10/2019 MATERNAL SCREENING DISCUSSION 05/28/2023 OBGCT (OB) 09/03/2023 PHQ-2 (once per calendar year) 2023 PAP 07/05/2025 07/05/2022, 07/05/2022 DTAP/TDAP/TD IMMUNIZATION (9 - Td or Tdap) 01/09/2031 01/09/2021, 01/10/2019, 04/17/2007, Additional history exists HEPATITIS B IMMUNIZATION Completed 995, 1994, 1994 IPV IMMUNIZATION Completed 07/07/1999, , 1994, Additional history exists MENINGITIS IMMUNIZATION Aged Out 04/17/2007 No l onger eligible based on patient's age to complete this topic HPV IMMUNIZATION Completed 12/14/2007, 09/2006, 04/17/2007 RSV MONOCLONAL ANTIBODY Aged Out No l onger eligible based on patient's age to complete this topic RSV VACCINE ( & 60+) (No Doses Required) Completed Procedures Procedure Name Priority Date/Time Associated Diagnosis Comments [facility] US COMPREHENSIVE SINGLE Routine 07/29/2023 10:05 AM CDT related condition, antepartum History of delivery, currently from Last 3 Months Results * [facility] US Comprehensive Single (07/29/2023 10:05 AM CDT) Anatomical Region Laterality Modality Ultrasound 07/29/2023 9:19 AM CDT Impressions 07/29/2023 10:22 AM CDT IMPRESSION ----- 1. Rios intrauterine at 18 6/7 weeks gestational age here for evaluation of anatomy. 2. No anomalies commonly detected by ultrasound or soft markers of aneuploidy were identified in the detailed anatomic survey within the limits of ultrasound. 3. Growth parameters and estimated weight were consistent with established dates. 4. The amniotic fluid volume appeared normal. 5. On transabdominal imaging the cervix appears long and closed with cerclage visualized. Narrative 07/29/2023 10:22 AM CDT ?Comprehensive ----- Pat. Name: CHRISTIAN DHALIWALLE ? Study Date: ??07/29/2023 9:19am Pat. NO: ??[id number] ?Referring ??MD: DECEMBER SHELBY Site: ??[facility] ? Edging Machine Catcher: ??Anamaria Kinsey RDMS : ??1995 ?Age: ?? 28 ----- INDICATION ----- History of Premature Rupture of Membranes (PPROM) twins at 19 weeks METHOD ----- Transabdominal ultrasound examination. View: Sufficient ----- Rios . Number of fetuses: 1 DATING ----- ? Date ?Details ?Gest. age ?LUCRETIA LMP ?03/19/2023 ? 18 w + 6 d ? 12/24/2023 Prior assessment ? 05/19/2023 ? GA: 8 w + 5 d ?18 w + 6 d ? 12/24/2023 U/S ? 07/29/2023 ? based upon AC, BPD, Femur, HC ?19 w + 3 d ? 12/20/2023 Assigned dating ?Dating performed on 06/09/2023, based on the LMP ?18 w + 6 d ? 12/24/2023 GENERAL EVALUATION ----- Cardiac activity present. FHR 140 bpm. movements present. Presentation Variable. Placenta Anterior, No Previa, > 2 cm from internal os. Umbilical cord 3 vessel cord. Amniotic fluid Amount of AF: normal. MVP 4.8 cm. BIOMETRY ----- Main Biometry: BPD ?43.4 ?mm ? 19w 1d ?Rea DE DIOS ?62.8 ?mm ? 20w 1d ?Nicolaides HC ?171.0 ?mm ?19w 5d ?Hadlock Cerebellum tr ?18.6 ? mm ?18w 2d ?Nicolaides AC ?148.2 ?mm ?20w 1d ?84% ?Hadlock Femur ?28.0 ? mm ?18w 4d ?Hadlock Humerus ?31.3 ?mm ? 20w 3d ?Marni Weight Calculation: EFW ? 291 ? g ? 76% ?Hadlock EFW (lb,oz) ? 0 lb 10 ? oz EFW by ?Hadlock (WJP-WO-MD-FL) Head / Face / Neck Biometry: Animal Care Supervisor ? 5.5 ? mm CM ?4.0 ? mm Nasal bone ? 6.3 ? mm Nuchal fold ? 3.2 ? mm ANATOMY ----- The following structures appear normal: Head / Neck ? Cranium. Head size. Head shape. Lateral ventricles. Choroid plexus. Midline falx. Cavum septi pellucidi. Cerebellum. Cisterna magna. ? Parenchyma. Thalami. Vermis. ? Neck. Nuchal fold. Face ? Lips. Profile. Nose. Maxilla. Mandible. Orbits. Lens. Heart / Thorax ?4-chamber view. RVOT view. LVOT view. Situs. Aortic arch view. Bicaval view. Ductal arch view. Superior vena cava. Inferior vena cava. 3-vessel ? view. 2-riwjcm-mmotiek view. Cardiac position. Cardiac size. Cardiac rhythm. ? Right lung. Left lung. Diaphragm. Abdomen ? Abdominal wall. Cord insertion. Stomach. Kidneys. Bladder. Liver. Bowel. Genitals. Spine ?Cervical spine. Thoracic spine. Lumbar spine. Sacral spine. Extremities / Skeleton ?Right arm. Right hand. Left arm. Left hand. Right leg. Right foot. Left leg. Left foot. MATERNAL STRUCTURES ----- Cervix ?Visualized ? Appearance: Appears Closed ? Cervical length 50.8 mm ? Cervical cerclage present Right Ovary ?Visualized Left Ovary ?Visualized RECOMMENDATION ----- Permission was requested and granted from the patient to discuss the following topics: We discussed the findings on today's ultrasound with the patient. We reviewed the limitations of ultrasound to detect all structural abnormalities. Ultrasound will detect approximately 80-90% of all structural abnormalities. Limitations are for those not evident on scan such as spina bifida occulta or abnormalities that may develop over time. We discussed the availability of NIPT for aneuploidy risk assessment. The patient declined all further testing. Return to primary provider for continued care. Further ultrasound studies as clinically indicated. Patient is aware and understands why she has come for her ultrasound today and states that she feels that all of her questions have been answered to her satisfaction. Thank you for the opportunity to participate in the care of this patient. If you have questions regarding today's evaluation or if we can be of further service, please contact the [facility] Center. anomalies may be present but not detected* Procedure Note Easton Bhatt MD - 07/29/2023 Comprehensive ----- Pat. Name: AUDRA DHALIWAL Study Date: 07/29/2023 9:19am Pat. NO: [id number] Referring MD: NIKOLAI RYAN Site: [facility] Edging Machine Catcher: Anamaria Kinsey RDMS : 1995 Age: 28 ----- INDICATION ----- History of Premature Rupture of Membranes (PPROM) twins at 19weeks METHOD ----- Transabdominal ultrasound examination. View: Sufficient ----- Rios . Number of fetuses: 1 DATING ----- DateDetailsGest. age LUCRETIA LMP w + 6 d 12/24/2023 Prior assessment 05/19/2023 GA: 8 w +5 d18 w + 6 d 12/24/2023 U/S 07/29/2023ased upon AC, BPD, Femur, HC19 w + 3 d 12/20/2023 Assigned dating Dating performed on 06/09/2023, based onthe LMP 18 w +6 d 12/24/2023 GENERAL EVALUATION ----- Cardiac activity present. FHR 140 bpm. movements present. Presentation Variable. Placenta Anterior, No Previa, > 2 cm from internal os. Umbilical cord 3 vessel cord. Amniotic fluid Amount of AF: normal. MVP 4.8 cm. BIOMETRY ----- Main Biometry: BPD 43.4 mm19w 1d Hadlock OFD 62.8 mm20w 1d Nicolaides HC 171.0 mm19w 5d Hadlock Cerebellum tr 18.6 mm18w 2d Nicolaides AC 148.2 mm20w 1d 84% Hadlock Femur 28.0 mm18w 4d Hadlock Humerus 31.3 mm20w 3d Marni Weight Calculation: EFW 291 g76% Hadlock EFW (lb,oz) 0 lb 10 oz EFW by Hadlock (XXG-MV-LS-FL) Head / Face / Neck Biometry: Animal Care Supervisor 5.5 mm CM 4.0 mm Nasal bone 6.3 mm Nuchal fold 3.2 mm ANATOMY ----- The following structures appear normal: Head / Neck Cranium. Head size. Head shape.Lateral ventricles. Choroid plexus. Midline falx. Cavum septi pellucidi.Cerebellum. Cisterna magna. Parenchyma. Thalami. Vermis. Neck. Nuchal fold. Face Lips. Profile. Nose. Maxilla.Mandible. Orbits. Lens. Heart / Thorax 4-chamber view. RVOT view. LVOT view.Situs. Aortic arch view. Bicaval view. Ductal arch view. Superior venacava. Inferior vena cava. 3-vessel view. 3-bwvcdb-tedvhwz view.Cardiac position. Cardiac size. Cardiac rhythm. Right lung. Left lung.Diaphragm. Abdomen Abdominal wall. Cord insertion.Stomach. Kidneys. Bladder. Liver. Bowel. Genitals. Spine Cervical spine. Thoracic spine.Lumbar spine. Sacral spine. Extremities / Skeleton Right arm. Right hand. Left arm. Lefthand. Right leg. Right foot. Left leg. Left foot. MATERNAL STRUCTURES ----- Cervix Visualized Appearance: Appears Closed Cervical length 50.8 mm Cervical cerclage present Right Ovary Visualized Left Ovary Visualized RECOMMENDATION ----- Permission was requested and granted from the patient to discuss thefollowing topics: We discussed the findings on today's ultrasound with the patient. Wereviewed the limitations of ultrasound to detect all structuralabnormalities. Ultrasound will detect approximately 80-90% of all structural abnormalities. Limitationsare for those not evident on scan such as spina bifida occulta orabnormalities that may develop over time. We discussed the availability of NIPT for aneuploidy risk assessment. Thepatient declined all further testing. Return to primary provider for continued care. Further ultrasound studies as clinically indicated. Patient is aware and understands why she has come for her ultrasound todayand states that she feels that all of her questions have been answered toher satisfaction. Thank you for the opportunity to participate in the care of this patient.If you have questions regarding today's evaluation or if we can be offurther service, please contact the [facility] Center. anomalies may be present but not detected* IMPRESSION ----- 1. Rios intrauterine at 18 6/7 weeks gestational age herefor evaluation of anatomy. 2. No anomalies commonly detected by ultrasound or soft markers ofaneuploidy were identified in the detailed anatomic survey withinthe limits of ultrasound. 3. Growth parameters and estimated weight were consistent withestablished dates. 4. The amniotic fluid volume appeared normal. 5. On transabdominal imaging the cervix appears long and closed withcerclage visualized. Xiomara Thomas MD IMG [facility] US ORDERABLE S from Last 3 Months Care Teams Journalist Relationship Specialty Start Date End Date Audra Camejo [facility] [address] [place] [address] PCP - General run boat operator 06/09/23 Xiomara Thomas MD [address] [place] [id number] Assigned OBGYN Provider 05/22/22
--- OUTSIDE RECORDS SUMMARY | 2023-10-24 11:28 | XMS_ITS | Encounter Summary ---
Author Name Unknown Organization [place] Address [facility] [place] [address] Care Team Providers Care Human Service Specialist Name Role Phone Xiomara Thomas MD Unavailable [phone] Mercedes Olmstead Primary Care Provider [phone] Reason for Visit * Reason Comments Ultrasound L2 - hx PTD Encounter Details Date Type Department Care Team (Late st Contact Info) Description 07/29/2023 10:00 AM CDT Office Visit [facility] [place] [address] [place], [place] [address] Xiomara Thomas MD [address] [id number] Michelle Cole MD [address] [address] Easton Bhatt MD [address] [address] History of delivery, currently (Primary Dx); Encounter for routine screening for malformation using ultrasound; Cervical cerclage suture present in second trimester Social History Tobacco Use Types Packs/Day Years Used Date Smoking Tobacco: Never Smokeless Tobacco: Never Alcohol Use Standard Drinks/Week Comments Not Currently [...] on file Sexual Orientation Not on file documented as of this encounter Progress Notes * Easton Bhatt MD - 07/29/2023 10:00 AM CDT Please refer to ultrasound report under 'Imaging' Studies of 'Chart Review' tabs. Easton Bhatt M.D. documented in this encounter Plan of Treatment Not on file documented as of this encounter Visit Diagnoses Diagnosis History of delivery, currently - Primary with history of pre-term labor Encounter for routine screening for malformation using ultrasound Cervical cerclage suture present in second trimester documented in this encounter Care Teams Human Service Specialist Relationship Specialty Start Date End Date Mercedes Olmstead [facility] [address] [place] [address] PCP - General sugar chipper machine operator 06/09/23 Xiomara Thomas MD [address] [address] [place] [address] Assigned OBGYN Provider 05/22/22 documented as of this encounter
--- OUTSIDE RECORDS SUMMARY | 2023-10-24 11:28 | XMS_ITS | Encounter Summary ---
Author Name Unknown Organization [place] Address [facility] [place] [address] Care Team Providers Care Entry Level Civil Engineer Name Role Phone Xiomara Thomas MD Unavailable [phone] Mercedes Olmstead Primary Care Provider [phone] Encounter Details Date Type Department Care Team (Latest Contact Info) Description 07/29/2023 Travel Social History Tobacco Use Types Packs/Day Years [...] documented as of this encounter Visit Diagnoses Not on filedocumented in this encounter Care Teams Entry Level Civil Engineer Relationship Specialty Start Date End Date Mercedes Olmstead [facility] [address] [place] [address] PCP - General director speech language 06/09/23 Xiomara Thomas MD [address] [place] [address] Assigned OBGYN Provider 05/22/22 documented as of this encounter
--- OUTSIDE RECORDS SUMMARY | 2023-10-24 11:28 | XMS_ITS | Encounter Summary ---
Author Name Unknown Organization [place] Address [facility] [place] [address] Care Team Providers Care Front Office Clerk Name Role Phone Xiomara Thomas MD Unavailable [phone] Mercedes Olmstead Primary Care Provider [phone] Encounter Details Date Type Department Care Team (Latest Contact Info) Description 06/22/2023 Travel Social History Tobacco Use Types Packs/Day [...] on file Sexual Orientation Not on file COVID-19 Exposure Response Date Recorded In the last 10 days, have yo u been in contact with someone who was confirmed or suspected to have Coronavirus/COVID-19? No / Unsure 06/22/2023 7:56 AM CDT documented as of this encounter Plan of Treatment Not on file documented as of this encounter Visit Diagnoses Not on filedocumented in this encounter Care Teams Front Office Clerk Relationship Specialty Start Date End Date Mercedes Olmstead [address] [address] PCP - General memorial marker designer 06/09/23 Xiomara Thomas MD [address] [place] [address] Assigned OBGYN Provider 05/22/22 documented as of this encounter
--- OUTSIDE RECORDS SUMMARY | 2023-10-24 11:28 | XMS_ITS | Encounter Summary ---
Author Name Unknown Organization [place] Address [facility] [place] [address] Care Team Providers Care Sewing Pattern Layout Technician Name Role Phone Xiomara Thomas MD Unavailable [phone] Audra Olmstead Primary Care Provider [phone] Reason for Referral * Diagnostic Imaging Ultrasound (Routine) - Pending Review Specialty Diagnoses / Procedures Referred By Contac t Referred To Contact Radiology. Diagnoses related condition, antepartum History of delivery, currently Procedures [facility] Xiomara Anthony MD [address] [place] [address] Referral ID Status Reason Start Date Expiration Date V isits Requested Visits Authorized [id number] Pending Review 06/09/2023 06/08/2024 1 1 Reason for Visit * Diagnostic Imaging Ultrasound (Routine) - Pending Review Specialty Diagnoses / Procedures Referred By Contac t Referred To Contact Radiology. Diagnoses related condition, antepartum History of delivery, currently Procedures [facility] Xiomara Anthony MD [address] [address] Referral ID Status Reason Start Date Expiration Date V isits Requested Visits Authorized [id number] Pending Review 06/09/2023 06/08/2024 1 1 Encounter Details Date Type Department Care Team (Latest Contact Info) Description 07/29/2023 9:07 AM CDT - 07/29/2023 11:59 PM CDT Hospital Encounter [facility] [place] [address] [place] [address] Xiomara Thomas MD [address] [place] [address] Michelle Cole MD [address] [place] [address] Easton Bhatt MD [address] [place] [address] related condition, antepartum; History of delivery, currently Discharge Disposition: Home or Self Care Social History Tobacco Use Types Packs/Day Years [...] Sig Dispensed Refills Start Date End Date busPIRone (BUSPAR) 15 MG tablet 0 FLUoxetine (PROZAC) 40 MG capsule Take 40 mg by mouth daily 0 04/06/2023 Xobpobtc-Ylk-Hg-FA ( 1 + IRON OR) Take by mouth. 0 documented as of this encounter Plan of Treatment Not on file documented as of this encounter Procedures Procedure Name Priority Date/Time Associated Diagnosis [facility] Routine 07/29/2023 10:05 AM CDT related condition, antepartum History of delivery, currently documented in this encounter Results * [facility] US Comprehensive Single (07/29/2023 10:05 AM CDT) [...] 10:22 AM CDT ?Comprehensive ----- Pat. Name: AUDRA DHALIWAL ? Study Date: ??07/29/2023 9:19am Pat. NO: ??[id number] ?Referring ??: NIKOLAI RYAN Site: ??[facility] ? Wing Coverer: ??Anamaria Kinsey RDMS : ??1995 ?Age: ?? [...] Biometry: BPD ?43.4 ?mm ? 19w 1d ?Hadlock OFD ?62.8 ?mm ? 20w 1d ?Nicolaides HC ?171.0 ?mm ?19w 5d ?Hadlock Cerebellum tr ?18.6 ? mm ?18w 2d ?Nicolaides AC ?148.2 ?mm ?20w 1d ?84% ?Hadlock Femur ?28.0 ? mm ?18w 4d ?Hadlock Humerus ?31.3 ?mm ? 20w 3d ?Marni Weight Calculation: EFW ? 291 ? g ? 76% ?Hadlock EFW (lb,oz) ? 0 lb 10 ? oz EFW by ?Hadlock (RTT-FI-WI-FL) Head / Face / Neck Biometry: Business Editor ? 5.5 ? mm CM ?4.0 ? [...] cava. Inferior vena cava. 3-vessel ? view. 7-xcymqh-jtwwlag view. Cardiac position. Cardiac size. Cardiac rhythm. [...] DHALIWAL Study Date: 07/29/2023 9:19am Pat. NO: [id number] Referring MD: NIKOLAI RYAN Site: [facility] Wing Coverer: Anamaria Kinsey RDMS : 1995 Age: 28 [...] 0 lb 10 oz EFW by Hadlock (FIX-OQ-CS-FL) Head / Face / Neck Biometry: Business Editor 5.5 mm CM 4.0 mm Nasal bone [...] Superior venacava. Inferior vena cava. 3-vessel view. 9-ubkqic-sbkaegf view.Cardiac position. Cardiac size. Cardiac rhythm. Right [...] and closed withcerclage visualized. Xiomara Thomas MD [facility] US ORDERABLE S documented in this encounter Visit Diagnoses Diagnosis related condition, antepartum History of delivery, currently with history of pre-term labor documented in this encounter Care Teams Sewing Pattern Layout Technician Relationship Specialty Start Date End Date Audra Olmstead [facility] [address] [place] [address] PCP - General loader machine 06/09/23 Xiomara Thomas MD [address] [place] [address] Assigned OBGYN Provider 05/22/22 documented as of this encounter
--- OUTSIDE RECORDS SUMMARY | 2023-10-24 11:28 | XMS_ITS | Encounter Summary ---
Author Name Unknown Organization [place] Address [facility] [place] [address] Care Team Providers Care Gameroom Technician Name Role Phone Xiomara Thomas MD Unavailable Mercedes Olmstead Primary Care Provider [phone] Encounter Details Date Type Department Care Team (Latest Contact Info) Description 07/22/2023 Travel Social History Tobacco Use Types Packs/Day [...] on filedocumented in this encounter Care Teams Gameroom Technician Relationship Specialty Start Date End Date Mercedes Olmstead [address] [address] PCP - General wind turbine erector 06/09/23 Xiomara Thomas MD [address] [place] [address] Assigned OBGYN Provider 05/22/22 documented as of this encounter
--- OUTSIDE RECORDS SUMMARY | 2023-10-24 11:28 | XMS_ITS | Encounter Summary ---
Author Name Unknown Organization [place] Address [facility]0 [facility] [place] [address] Care Team Providers Care Clinical Documentation Consultant Name Role Phone Xiomara Thomas MD Unavailable [phone] Mercedes Olmstead Primary Care Provider [phone] Encounter Details Date Type Department Care Team (Late st Contact Info) Description 06/22/2023 11:40 AM CDT Anesthesia Event M [facility] [address] [place] [id number] Jina Burciaga MD [address] [facility] [id number]/FLOOR [address] [place], [place] [address] Ilda Vieyra MD [address] [place] [id number] Anesthesia Record Procedure Summary Procedure Name Responsible Anesthesiologist Anesthesia Start Time Anesthesia Stop Time CERCLAGE, CERVIX, VAGINAL APPROACH (Cervix) Jina Burciaga MD 06/22/23 1140 06/22/23 1236 Events Date Time Event Comment 06/22/2023 1140 An Start 1143 An Start Data 1148 AN REASSESS I attest that I have identified and re-evaluated the patient immediately before the induction of anesthesia and I am satisfied that the anesthetic plan is suitable for the patient's condition and procedure. The first vital signs recorded are pre- induction. Ilda Vieyra MD 1200 Anesthesia Ready for Procedu re 1225 an stop data 1236 An Stop Electronically signed by Ilda Vieyra MD on June 22, 2023 12:36 PM Meds Name Total phenylephrine 0.2 mg/mL (mcg/min) drip 5 75 mcg ondansetron 2 mg/mL 4 mg Fentanyl PF (Intrathecal) 15 mcg 0.75% Hyperbaric Bupivacaine (Intratheca l) 1.2 mL LR 200 mL * Agents Name NO HELIOX O2 N2O Air Exp Sevoflurane Exp Isoflurane Exp Desflurane Exp N2O Ins Sevoflurane Ins Isoflurane Ins Desflurane O2 Auxiliary * Blood No blood administrations on file. Lines, Drains, and Airways Type Details Placement Removal Peripheral IV 06/22/23; 0854; 20 G ; B Swanson; Anterior, Right; Lower forearm; 2; Tolerated well 06/22/23 0854 by Bridgett Delgado RN 06/22/23 1821 by Inpatient, Nurse documented in this encounter Social History Tobacco Use Types Packs/Day Years [...] AM CDT documented as of this encounter OR Notes * Anesthesia Postprocedure Evaluation - Jina Burciaga MD - 06/22/2023 1:00 PM CDT Patient: Mercedes Dhaliwal Procedure: Procedure(s): CERCLAGE, CERVIX, VAGINAL APPROACH Anesthesia Type: Spinal Note: Disposition: Outpatient Postop Pain Control: Uneventful Sign Out: Well controlled pain PONV: No Neuro/Psych: Uneventful Sign Out: Acceptable/Baseline neuro status Airway/Respiratory: Uneventful Sign Out: Acceptable/Baseline resp. status CV/Hemodynamics: Uneventful Sign Out: Acceptable CV status; No obvious hypovolemia; No obvious fluid overload Other NRE: NONE DID A NON-ROUTINE EVENT OCCUR? No Last vitals: Vitals Value Taken Time BP 118/59 06/22/23 1237 Temp 36.7 ??C (98 ??F) 06/22/23 1237 Pulse 89 06/22/23 1248 Resp 16 06/22/23 1248 SpO2 98 % 06/22/23 1248 Vitals shown include unvalidated device data. Electronically Signed By: Jina Burciaga MD June 22, 2023 4:00 PM * Anesthesia Procedure Notes - Ilda Vieyra MD - 06/22/2023 12:05 PM CDT Associated Order(s): Spinal Block Intrathecal injection Procedure Note Pre-Procedure Staff - Anesthesiologist: Jina Burciaga MD Resident/Fellow: Ilda Vieyra MD Performed By: with residents Procedure performed by resident/fellow/METAL PRECISION MACHINE ASSEMBLER in presence of a teaching physician. Location: OR Procedure Start/Stop Times: 06/22/2023 11:48 AM and 06/22/2023 11:54 AM Pre-Anesthestic Checklist: patient identified, IV checked, risks and benefits discussed, informed consent, monitors and equipment checked, pre-op evaluation, at physician/surgeon's request and post-op pain management Timeout: Correct Patient: Yes Correct Procedure: Yes Correct Site: Yes Correct Position: Yes Procedure Documentation Procedure: intrathecal injection Patient Position: sitting Skin prep: Chloraprep Insertion Site: L4-5. (midline approach). Needle Gauge: 25. Needle Length (Inches): 3.5 Spinal Needle Type: Pencan Introducer used # of attempts: 1 and # of redirects: 0 Assessment/Narrative Paresthesias: No. CSF fluid: clear. Opening pressure was cmH2O while Sitting. Medication(s) Administered 0.75% Hyperbaric Bupivacaine (Intrathecal) - Intrathecal 1.2 mL - 06/22/2023 11:54:00 AM Fentanyl PF (Intrathecal) - Intrathecal 15 mcg - 06/22/2023 11:54:00 AM Medication Administration Time: 06/22/2023 11:48 AM FOR [facility] ONLY: Pain Team Contact information: please page the Pain Team Via ecobee.Search Pain. During daytime hours, please page the attending first. At night please page the resident first. * Anesthesia Preprocedure Evaluation - Jina Burciaga MD - 06/21/2023 6:54 PM CDT Anesthesia Pre-Procedure Evaluation Patient: Mercedes Dhaliwal : 1995 Procedure : Procedure(s): CERCLAGE, CERVIX, VAGINAL APPROACH Past Medical History: Diagnosis Date Anxiety Depression Past Surgical History: Procedure Laterality Date BIOPSY/REMOVAL, LYMPH NODE(S) Neck-benign SECTION TONSILLECTOMY & ADENOIDECTOMY Hines teeth No Known Allergies Social History Tobacco Use Smoking status: Not on file Smokeless tobacco: Not on file Substance Use Topics Alcohol use: Not on file Wt Readings from Last 1 Encounters: No data found for Wt Anesthesia Evaluation Pt has had prior anesthetic. Type: Regional and OB Labor Epidural. ROS/MED HX ENT/Pulmonary: - neg pulmonary ROS (-) asthma and recent URI Neurologic: - neg neurologic ROS Cardiovascular: - neg cardiovascular ROS METS/Exercise Tolerance: >4 METS Hematologic: - neg hematologic ROS (+) no anticoagulation therapy, (-) anemia Musculoskeletal: - neg musculoskeletal ROS GI/Hepatic: - neg GI/hepatic ROS Renal/Genitourinary: - neg Renal ROS Endo: - neg endo ROS Psychiatric/Substance Use: (+) psychiatric history anxiety and depression Infectious Disease: - neg infectious disease ROS Malignancy: Other: Comment: at 13w4d Hx of previous Hx of PPROM (+) , ,previous Physical Exam Airway Mallampati: II TM distance: > 3 FB Neck ROM: full Mouth opening: > 3 cm Respiratory Devices and Support Dental (+) Completely normal teeth Cardiovascular Rhythm and rate: regular and normal Pulmonary pulmonary exam normal breath sounds clear to auscultation OUTSIDE LABS: CBC: No results found for: WBC, HGB, HCT, PLT BMP: No results found for: NA, POTASSIUM, CHLORIDE, CO2, BUN, CR, GLC COAGS: No results found for: PTT, INR, FIBR POC: No results found for: BGM, HCG, HCGS HEPATIC: No results found for: ALBUMIN, PROTTOTAL, ALT, AST, GGT, ALKPHOS, BILITOTAL, BILIDIRECT, TAMI OTHER: No results found for: PH, LACT, A1C, PARIS, PHOS, MAG, LIPASE, AMYLASE, TSH, T4, T3, CRP, SED Anesthesia Plan ASA Status: 2 NPO Status: NPO Appropriate Anesthesia Type: Spinal. Consents Anesthesia Plan(s) and associated risks, benefits, and realistic alternatives discussed. Questions answered and patient/provider service representative(s) expressed understanding. - Discussed: Risks, Benefits and Alternatives for BOTH SEDATION and the PROCEDURE were discussed - Discussed with: Patient - Patient is DNR/DNI Status: No Use of blood products discussed: Yes. - Discussed with: Patient. - Consented: consented to blood products Reason for refusal: other. Postoperative Care Pain management: Oral pain medications. PONV prophylaxis: Ondansetron (or other 5HT-3) Comments: Other Comments: 27 yo female @ 13w4d presents for history indicated cerclage. POBHx significant for PPROM and delivery with G2 (twins) and demise. Prev delivery x 1 w/G1 for failure to progress. NPO appropriate. Plan spinal + standard ASA monitors. documented in this encounter Miscellaneous Notes * Anesthesia Care Transfer Note - Ilda Vieyra MD - 06/22/2023 12:37 PM CDT Patient: Mercedes Dhaliwal Procedure: Procedure(s): CERCLAGE, CERVIX, VAGINAL APPROACH Diagnosis: History of delivery, currently [O09.899] Diagnosis Additional Information: No value filed. Anesthesia Type: Spinal Note: Oropharynx: oropharynx clear of all foreign objects and spontaneously breathing Level of Consciousness: awake Independent Airway: airway patency satisfactory and stable Dentition: dentition unchanged Vital Signs Stable: post-procedure vital signs reviewed and stable Report to RN Given: handoff report given Patient transferred to: PACU Handoff Report: Identifed the Patient, Identified the Reponsible Provider, Reviewed the pertinent medical history, Discussed the surgical course, Reviewed Intra-OP anesthesia mangement and issues during anesthesia, Set expectations for post-procedure period and Allowed opportunity for questions andacknowledgement of understanding Vitals: Vitals Value Taken Time BP 119/78 Temp Pulse Resp SpO2 Electronically Signed By: Ilda Vieyra MD June 22, 2023 12:37 PM documented in this encounter Plan of Treatment Not on file documented as of this encounter Procedures Procedure Name Priority Date/Time Associated Diagnosis Comments ANE SPINAL BLOCK FORM Routine 06/22/2023 11:48 AM CDT documented in this encounter Results * Spinal Block (06/22/2023 11:48 AM CDT) Narrative Ilda Vieyra MD - 06/22/2023 11:48 AM CDT Ilda Vieyra MD ? 06/22/2023 12:11 PM Intrathecal injection Procedure Note Pre-Procedure Staff - ? Anesthesiologist: ??Jina Burciaga MD ? Resident/Fellow: Ilda Vieyra MD ? Performed By: with residents ? Procedure performed by resident/fellow/METAL PRECISION MACHINE ASSEMBLER in presence of a teaching physician. ? Location: OR ? Procedure Start/Stop Times: 06/22/2023 11:48 AM and 06/22/2023 11:54 AM ? Pre-Anesthestic Checklist: patient identified, IV checked, risks and benefits discussed, informed consent, monitors and equipment checked, pre-op evaluation, at physician/surgeon's request and post-op pain management Timeout: ? Correct Patient: Yes ? Correct Procedure: Yes ? Correct Site: Yes ? Correct Position: Yes Procedure Documentation Procedure: intrathecal injection ? Patient Position: sitting ? Skin prep: Chloraprep ? Insertion Site: L4-5. (midline approach). ? Needle Gauge: 25. ? Needle Length (Inches): 3.5 ? Spinal Needle Type: Pencan ? Introducer used ? # of attempts: 1 and ??# of redirects: ??0 Assessment/Narrative ? Paresthesias: No. ? CSF fluid: clear. ? Opening pressure was cmH2O while ??Sitting. Medication(s) Administered 0.75% Hyperbaric Bupivacaine (Intrathecal) - Intrathecal 1.2 mL - 06/22/2023 11:54:00 AM Fentanyl PF (Intrathecal) - Intrathecal 15 mcg - 06/22/2023 11:54:00 AM Medication Administration Time: 06/22/2023 11:48 AM FOR [facility] ([facility]) ONLY: ?? Pain Team Contact information: please page the Pain Team Via ecobee. Search Pain. During daytime hours, please page the attending first. At night please page the resident first. Jina Burciaga MD [place] ANESTHESIA documented in this encounter Visit Diagnoses Not on filedocumented in this encounter Administered Medications Inactive Administered Medications - up to 3 most recent administrations Medication Order MAR Action Action Date Dose Rate Site BUPivacaine 0.75% in dextrose 8.25% (intrathecal) (SENSORCAINE) 0.75-8.25 % injection Intrathecal, Starting on Tue06/22/23 at 1153, Anesthesia Intra-op $Given 06/22/2023 11:54 AM CDT 1.2 mLs fentaNYL (PF) (SUBLIMAZE) injection Intrathecal, Administer over 3-5 Minutes, Starting on Tue06/22/23 at 1154, Anesthesia Intra-op $Given 06/22/2023 11:54 AM CDT 15 mcg lactated ringers infusion Intravenous, CONTINUOUS PRN, Anesthesia Intra-op, Starting on Tue06/22/23 at 1204, Until Tue06/22/23 at 1236 $New Bag 06/22/2023 12:04 PM CDT ondansetron (ZOFRAN) injection Intravenous, PRN, Administer over 2-5 Minutes, Starting on Tue06/22/23 at 1151, Anesthesia Intra-op $Given 06/22/2023 11:51 AM CDT 4 mg phenylephrine 0.2 mg/mL (mcg/min) drip Intravenous, CONTINUOUS PRN, Starting on Tue06/22/23 at 1200, Anesthesia Intra-op Restarted 06/22/2023 12:15 PM CDT 25 mcg/min 7.5 mL/hr $New Bag 06/22/2023 12:00 PM CDT 50 mcg/min 15 mL/hr documented in this encounter Care Teams Clinical Documentation Consultant Relationship Specialty Start Date End Date Mercedes Olmstead [address] [address] PCP - General pharmacology professor 06/09/23 Xiomara Thomas MD [address] [place] [id number] Assigned OBGYN Provider 05/22/22 documented as of this encounter
--- OUTSIDE RECORDS SUMMARY | 2023-10-24 11:28 | XMS_ITS | Referral Summary ---
Author Name Unknown Organization [facility] Address [address] [place] [address] Care Team Providers Care Furniture Arranger Name Role Phone Xiomara Thomas MD Unavailable [phone] Audra Olmstead Primary Care Provider [phone] Encounters Date Type Department Care Team Description 07/29/2023 Travel 07/29/2023 10:00 AM CDT Office Visit [facility] [address] [place] [address] Xiomara Thomas MD Nyholm, Jessica Lea, MD Contag, Stephen A, MD History of delivery, currently (Primary Dx); Encounter for routine screening for malformation using ultrasound; Cervical cerclage suture present in second trimester 07/29/2023 9:07 AM CDT - 07/29/2023 11:59 PM CDT Hospital Encounter [facility] [address] [place] [address] Xiomara Thomas MD Nyholm, Jessica Lea, MD Contag, Stephen A, MD related condition, antepartum; History of delivery, currently Discharge Disposition: Home or Self Care from Last 3 Months Allergies No known active allergies Medications Medication Sig Dispensed Refills Start Date End Date Status busPIRone (BUSPAR) 15 MG tablet 0 Active FLUoxetine (PROZAC) 40 MG capsule Take 40 mg by mouth daily 0 04/06/2023 Active Wawsjoyo-Evs-As-FA ( 1 + IRON OR) Take by mouth. 0 Active Active Problems Patient Care Coordination No te Formatting of this note is d ifferent from the original. [facility] Care Plan: For details of imaging, genetic testing and consultations, please see the maternal medical record: Audra Dhaliwal MR#:[id number] ANTE admission planned for 22 wks- 05/31/22 @ 0900, declined to meet with NICU prior to admission Delivery hospital: [facility] DIAGNOSIS: DIAGNOSIS / DIAGNOSES: 1) di/di twins- [...] Anticipated Pediatric Provider: DEMOGRAPHICS: Patient contact info: [phone] [facility] [address] Partner's name: Baby's name: Problem Noted Date Diagnosed Date Cervical cerclage suture present 06/22/2023 Estimated Date of Delivery Comme nts Yes 12/24/2023 Based on last me nstrual period of 03/19/2023 Resolved Problems Problem Noted Date Diagnosed Date Resolved Date Hx of cerclage, currently 06/22/2023 06/22/2023 Social History Tobacco Use Types Packs/Day Years [...] 06/22/2023 8:02 AM CDT Plan of Treatment Not on file Procedures Procedure Name Priority Date/Time Associated Diagnosis Comments [facility] COMPREHENSIVE SINGLE Routine 07/29/2023 10:05 AM CDT related condition, antepartum History of delivery, currently from Last 3 Months Results * [facility] US Comprehensive Single (07/29/2023 10:05 AM CDT) [...] ? Study Date: ??07/29/2023 9:19am Pat. NO: ??[id number] ?Referring ??MD: DECEMBER SHELBY Site: ??[facility] ? Injection Operator: ??Anamaria Kinsey RDMS : ??1995 ?Age: ?? [...] lb 10 ? oz EFW by ?Hadlock ([id number]) Head / Face / Neck Biometry: Marketing Support Assistant ? 5.5 ? mm CM ?4.0 ? [...] cava. Inferior vena cava. 3-vessel ? view. 2-nprpkh-uxpzzwq view. Cardiac position. Cardiac size. Cardiac rhythm. [...] DHALIWAL Study Date: 07/29/2023 9:19am Pat. NO: [id number] Referring MD: NIKOLAI RYAN Site: [facility] Injection Operator: Anamaria Kinsey RDMS : 1995 Age: 28 ----- INDICATION ----- History of Premature Rupture of Membranes (PPROM) twins at 19weeks METHOD ----- Transabdominal ultrasound examination. View: Sufficient ----- Rios . Number of fetuses: 1 DATING ----- DateDetailsGest. age LUCRETIA LMP w + 6 d 12/24/2023 Prior assessment 05/19/2023 GA: 8 w +5 d18 w + 6 d 12/24/2023 U/S 3based upon AC, BPD, Femur, HC19 w + [...] 0 lb 10 oz EFW by Hadlock ([id number]) Head / Face / Neck Biometry: Marketing Support Assistant 5.5 mm CM 4.0 mm Nasal bone [...] Superior venacava. Inferior vena cava. 3-vessel view. 3-ipiyee-pgcowtl view.Cardiac position. Cardiac size. Cardiac rhythm. Right [...] and closed withcerclage visualized. Xiomara Thomas MD [facility] ORDERABLE S from Last 3 Months Care Teams Furniture Arranger Relationship Specialty Start Date End Date Audra Olmstead [facility] [address] [place] [address] PCP - General plastics and composites inspector 06/09/23 Xiomara Thomas MD [address] [facility] [address] [place] [address] Assigned OBGYN Provider 05/22/22
--- OUTSIDE RECORDS SUMMARY | 2023-10-24 11:28 | XMS_ITS | Encounter Summary ---
Author Name Unknown Organization [facility] Address [facility] [place] [address] Care Team Providers Care Vp Site Name Role Phone Xiomara Thomas MD Unavailable [phone] Audra Olmstead Primary Care Provider [phone] Reason for Visit * Reason Comments cerclage Encounter Details Date Type Department Care Team (Late st Contact Info) Description 06/22/2023 10:30 AM CDT - 06/22/2023 11:30 AM CDT Surgery [facility] [address] [place] [address] [phone] Easton Bhatt MD [address] [facility] [address] [place] [address] CERCLAGE, CERVIX, VAGINAL APPROACH Surgery Details Date/Time Status Location OR Service Patient Class Case Cl ass Case Type Trauma Case? 06/22/23 10:30 AM Posted UR L+D UR Z LD 03 Gynecology Outpatient Elective Panel 1 Procedure LRB Anes Op Region Wound Class Comments CERCLAGE, CERVIX, VAGINAL APPROACH N/A Spinal Cervi x I-Clean Surgeon Surgeon Role Service Panel Easton Bhatt MD Primary Gynecology 1 Iraida Trent MD Fellow - Assisting Obstetrics 1 documented in this encounter Social History Tobacco [...] AM CDT documented as of this encounter Last Filed Vital Signs Vital Sign Reading Time Taken Comments Blood Pressure 112/59 06/22/2023 8:04 AM CDT Pulse - - Temperature 37 ??C (98.6 ??F) 06/22/2023 8:04 AM CDT Respiratory Rate - - Oxygen Saturation - - Inhaled Oxygen Concentration - - Weight 89.8 kg (198 lb) 06/22/2023 8:02 AM CDT Height 172.7 cm (5' 8) 06/22/2023 8:02 AM CDT Body Mass Index 30.11 06/22/2023 8:02 AM CDT documented in this encounter Discharge Instructions * Discharge Instructions* Simi Ortiz RN - 06/22/2023 4:35 PM CDT Images from the original note were not included. Getting Ready for Your Cervical Cerclage [facility] What is a cerclage? A cerclage is a minor surgery to help prevent premature . The doctor places stitches in the cervix (opening to the uterus) to pull it closed. This makes the cervix stronger. Your cerclage is scheduled for: (date) at (time). Arrive at the hospitaltwo hours early at (time). How do I prepare for surgery? Do not eat, drink (including water) or smoke after (time) on (date). For 24 hours before surgery, do not douche, have sex (intercourse) or put anything in the vagina. If you will leave the hospital the day of surgery, arrange for someone to drive you home. Someone should also stay with you for the first 24 hours. Where do I go the day of surgery? Your surgery will take place at: [facility] (4th floor, [facility]) [facility] [address] After you enter the hospital, follow the signs to the East Building. Take the A elevator to the 4th floor. Follow the signs to the main desk. You will need to ring the doorbell, and someone will let you in. Where do I park? On [address], follow the signs to park in the Green garage beneath the [place] [facility] ([facility]). [facility] parking is also available at the main entrance (Tuesday through Tuesday from 5:30 a.m. until 6 p.m.) for the same rate. Bring your parking ticket with you. Wewill stamp it, and you will pay a lower rate. What happens when I arrive? You will register. Please bring your insurance card. We will bring you to your room and get you ready. You must sign a consent form. It states that you know the risks and benefits of the surgery. You will meet with your surgeon to discuss the surgery. A doctor will talk with you about the anesthesia options (medicine for pain control) for your surgery. What to Expect after a Cerclage How will I feel after the cerclage? You may have mild cramps that feel like menstrual cramps. These may last several hours. How long will I be in the hospital? You may go home the same day or the next day. Do I need to limit my activities? Yes, while the cerclage is in place. Avoid any activity that puts stress on the muscles of your abdomen (belly). This may mean no lifting of children, laundry or grocery bags. Do not have intercourse(sex). Ask your doctor how long you need to restrict your activities. You must follow the doctor's advice. Do I need to return to the [facility] for a follow-up visit? Your doctor may suggest an ultrasound of your cervix after surgery. If so, please make an appointment at one of our [facility] Centers. Will I stilll need to see my care provider? Yes. Return to your care provider for your routine care. Your provider and the [facility] specialist will decide on your ongoing care. Which problems I should watch for? Call your [facility] Center if you have any of these symptoms within 7 days of surgery: Bright red bleeding as heavy as a period. Clear fluid (like water) leaking from the vagina. Severe cramps or pain in your abdomen. Flu-like symptoms: chills, muscle pain or a fever over 100.4??F (38??C) (taken under the tongue). Foul-smelling discharge coming from the vagina. After a cerclage, it is normal to have an increase in discharge from the vagina. The discharge should not have a bad smell. Contact the [facility] Center (Open Tuesday through Tuesday, 8 a.m. to 4:30 p.m.) [facility] [phone] [facility] [phone] [facility] [phone] If it is after business hours: Call the [facility] at [phone]. Ask for the [facility] doctor precision grinder external. For informational purposes only. Not to replace the advice of your health care provider. illustration page 1 (ID [id number]) ?? Ryan, www.[employer]. Copyright ?? 2005 [facility] [employer] [facility]. All rights reserved. Clinically reviewed by Hannah Flowers RN, [facility] Ce nter. [employer] [id number] - REV 07/16. documented in this encounter Medications at Time of Discharge Medication Sig Dispensed Refills Start Date End Date busPIRone (BUSPAR) 15 MG tablet 0 FLUoxetine (PROZAC) 40 MG capsule Take 40 mg by mouth daily 0 04/06/2023 [id number]-Plk-Bl-[id number] ( 1 + IRON OR) Take by mouth. 0 documented as of this encounter Progress Notes * Bridgett Delgado RN - 06/22/2023 12:40 PM CDT OR to PACU Transfer Note Data: Pt to OB PACU via cart. PIV infusing without complications, temp 98.0, vs stable, pt does notcomplain of pain and/or nausea. Interventions: IV to pump, monitors and alarms on, SCD on. Response: stable Plan: Patient instructed to notify RN for pain or nausea, routine post op cares, initiate /pumping as soon as patient/ able. * Bridgett Delgado RN - 06/22/2023 8:09 AM CDT Patient arrived from home for cerclage. VSS. Provider notified of arrival. documented in this encounter H&P Notes * Iraida Trent MD - 06/22/2023 8:[address] [facility] OB History and Physical Audra Dhaliwal Age: [age] year old Date of : 1995 CC: History indicated cerclage HPI: Audra Dhaliwal is a 27 year old at 13w4d by LMP c/w 8w5d US, who presents for history indicated cerclage in the setting of recent history of PPROM and labor resulting in demiseof twin gestation 05/17 at 20w6d. That was notable for PPROM of Twin B at 19w2d; her was otherwise uncomplicated.PPROM was confirmed after evaluation in the hospital revealed positive pooling and a visually dilated cervix to 0.5 cm. Subsequent ultrasound showed oligohydramnios around Twin B. Labs drawn during her evaluation showed a WBC count of 13.39 with left shift and positive GBS status. There was no evidence of placental abruption. Complications: History of PPROM w/ PTL, twin gestation 20w6d JAMAAL/MDD History of prior c/s x1 (c/b extensions, told TOLAC contraindicated) OB History OB History Para Term AB Living 3 2 1 1 0 1 SAB IAB Ectopic Multiple Live Births 0 0 0 1 1 # Outcome Date GA Lbr Trey/2nd Weight Sex Delivery Anes PTL Lv 3 Current 2A 05/23/22 20w6d 05:27 / 00:39 M Y FD Name: SUZANNEDARCI AUDRA OLVERA Apgar1: 0 Apgar5: 0 2B 05/23/22 20w6d 05:27 / 00:04 M Y FD Name: SUZANNEDARCI ZHU FD Apgar1: 0 Apgar5: 0 1 Term 03/26/21 41w0d 3.6 kg (7 lb 15 oz) M CS-Unspec [facility] Complications: Failure to Progress in Second Stage PMHx: Past Medical History: Diagnosis Date Anxiety Depression PSHx: Past Surgical History: Procedure Laterality Date BIOPSY/REMOVAL, LYMPH NODE(S) Neck-benign SECTION TONSILLECTOMY & ADENOIDECTOMY [place] teeth Meds: No medications prior to admission. Allergies: No Known Allergies FmHx: No family history on file. SocHx: She denies any tobacco, alcohol, or other drug use during this . ROS: Complete 10-point ROS negative except as noted in HPI. PE: Vit: Patient Vitals for the past 4 hrs: BP Temp Temp src Height Weight 06/22/23 0804 112/59 98.6 ??F (37 ??C) Oral -- -- 06/22/23 0802 -- -- -- 1.727 m (5' 8) 89.8 kg (198 lb) 06/22/23 0800 112/59 -- -- -- -- Gen: Well-appearing, NAD, comfortable CV: Warm, well perfused Pulm: Breathing comfortably on room air, no increased effort Abd: Soft, gravid, non-tender Ext: no LE edema b/l Cx: Deferred Assessment/Plan Ms. Audra Dhaliwal is a 27 year old at 13w4d by LMP c/w 8w5d US, who presents for history indicated cerclage in the setting of recent history of PPROM and labor resulting in demise of twin gestation 05/17 at 20w6d. - Discussed risks of a cerclage including but not limited to: bleeding (including placental), infection (including chorioamnionitis), damage to surrounding structures including but not limited to bowel, bladder, cervix, risk of PPROM, failure of cerclage to prevent pre-viable, jas-viable or . - Doptones before and after the procedure. - Surgical consent signed.NPO at this time. - Anesthesia alerted. No plans for antibiotics unless membranes visualized. The patient was discussed with Dr. Bhatt who is in agreement with the treatment plan. Iraida Trent MD Maternal Medicine Fellow Associated attestation - Easton Bhatt MD - 06/22/2023 1:29 PM CDT Physician Attestation I, Easton Bhatt MD, saw this patient with the resident/fellow and agree with the resident???sfindings and plan of care as documented in the resident???s note. I personally reviewed vital signs, medications, and imaging. Ocampo findings: patient has arrived for placement of a history indicated cerclage. We reviewed risks and benefits and patient has elected to proceed with placement. Easton Bhatt MD Date of Service (when I saw the patient): 06/22/23 Time Spent on this Encounter I personally spent a total of 20 minutes, including both yqhf-lp-rclz and yfw-zhej-ee-face on the date of the encounter, addressing the above diagnosis. Activities performed in this time include chart review, obtaining / reviewing history, performing a medically necessary evaluation, documentation and Charge activities: counseling and care coordination, equivalent to medical decision making that is of low complexity. documented in this encounter Miscellaneous Notes * Plan of Care - Simi Ortiz RN - 06/22/2023 4:58 PM CDT Patient discharged to home undelivered following cervical cerclage placement. Patient given instructions on s/s of infection, rupture of membranes and when to return to care. * Op Note - Iraida Trent MD - 06/22/2023 12:37 PM CDT Operative Note: Cervical Cerclage Pre-Op Diagnosis: 1) Single intrauterine at 13w4d by LMP c/w 8w5d US 2) Cervical insufficiency by history with prior PPROM and delivery at 20w6d of di-di twins Post-Op Diagnosis: 1) Same Procedure: 1) Pastor cervical cerclage, 1 suture (knot at 12 o'clock position) Surgeons: Attending: Easton Bhatt MD Fellow: WILSON Leroy Fellow Medical Student: Stephanie Mitchell MS4 Anesthesia: Spinal Estimated Blood Loss: 5cc Findings: 1) Cervix not dilated prior to the procedure, closed following the procedure 2) heart tones confirmed by doptone following the procedure Specimens: 1) None Complications: 1) None apparent History: Audra Dhaliwal is a 27 year oldy.o. at 13w4d by LMP c/w 8w5d US. She has history of PPROM and labor resulting in demise of twin gestation 05/17 at 20w6d. After counseling regarding these findings, the patient has decided to proceed with history indicated cerclage. Details of Procedure: After administration of spinal anesthesia the patient was placed in the dorsal lithotomy position and prepped and draped in the usual fashion. A weighted speculum was placed into the vagina and rightangle retractors were used to visualize the cervix. The vagina and cervix were copiously cleansed with betadine solution. The anterior lip of the cervix was grasped with a ring forcep. A circumferential suture of #2 Ethilon was placed in the usual fashion at the cervicovaginal reflection with knot tied at 12 o'clock position. The suture was securely tied down and digital exam confirmed that the cervix was closed. The bladder was drained of clear urine and a rectal exam confirmed that no sutures were present in the rectum. The cervix and vaginal vault were inspected and noted to be free of injury and hemostatic. The instruments were removed from the vagina. She tolerated her spinal anesthesia well without incident. She was subsequently transferred to the recovery room in satisfactory condition. Sponge and needle counts were correct at the close of the case x 2. Iraida Trent MD Maternal Medicine Fellow 06/22/2023 12:37 PM Associated attestation - Easton Bhatt MD - 06/22/2023 1:29 PM CDT Physician Attestation I was present for the entire procedure between opening and closing. Easton Bhatt MD Date of Service (when I saw the patient): 06/22/23 documented in this encounter Plan of Treatment Not on file documented as of this encounter Procedures Procedure Name Priority Date/Time Associated Diagnosis Comments CERCLAGE, CERVIX, VAGINAL APPROACH 06/22/2023 11:43 AM CDT History of delivery, currently CBC WITH PLATELETS AND DIFFERENTIAL STAT 06/22/2023 8:54 AM CDT TYPE AND SCREEN, ADULT STAT 06/22/2023 8:54 AM CDT CBC WITH PLATELETS & DIFFERENTIAL STAT 06/22/2023 8:54 AM CDT RH IMMUNE GLOBULIN SCREEN Add-On 06/22/2023 8:54 AM CDT ABO/RH TYPE AND SCREEN STAT 06/22/2023 8:54 AM CDT documented in this encounter Results * RH Immune Globulin Screen (06/22/2023 8:54 AM CDT) ABO/RH(D) O NEG 06/22/2023 12:49 PM CDT UR BLOOD BANK Bleed Screen NEG Negative 06/22/2023 12:49 PM CDT UR BLOOD BANK SPECIMEN EXPIRATION DATE [id number] 06/22/2023 12:49 PM CDT UR BLOOD BANK Blood BLOOD SPECIMEN / Unknown Venipuncture / Unknown 06/22/2023 8:54 AM CDT 06/22/2023 9:15 AM CDT Iraida Trent MD LAB - BLOOD BANK STEPHON T ORDER UR BLOOD BANK [facility] [address] [place] [address], [address] [place] [address], [facility] [phone] * Adult Type and Screen (06/22/2023 8:54 AM CDT) Pathologist [facility] ABO/RH(D) O NEG 06/22/2023 8:55 AM CDT UR BLOOD BANK Antibody Screen Negative Negative 06/22/2023 8:55 AM CDT UR BLOOD BANK SPECIMEN EXPIRATION DATE [id number] 06/22/2023 8:55 AM CDT UR BLOOD BANK Blood BLOOD SPECIMEN / Unknown Venipuncture / Unknown 06/22/2023 8:54 AM CDT 06/22/2023 9:15 AM CDT Iraida Trent MD LAB - BLOOD BANK STEPHON T ORDER Performing Organization Address City/[facility]/ZIP Co de Phone Number UR BLOOD BANK [facility] [address] [place] [address], [address] [id number], [facility] [phone] * CBC with platelets and differential (06/22/2023 8:54 AM CDT) Pathologist [facility] WBC Count 8.3 4.0 - 11.0 10e3/uL 06/22/2023 9:24 AM CDT UR LABORATORY RBC Count 3.97 3.80 - 5.20 10e6/uL 06/22/2023 9:24 AM CDT UR LABORATORY Hemoglobin 12.3 11.7 - 15.7 g/dL 06/22/2023 9:24 AM CDT UR LABORATORY Hematocrit 35.7 35.0 - 47.0 % 06/22/2023 9:24 AM CDT UR LABORATORY MCV 90 78 - 100 fL 06/22/2023 9:24 AM CDT UR LABORATORY MCH 31.0 26.5 - 33.0 pg 06/22/2023 9:24 AM CDT UR LABORATORY MCHC 34.5 31.5 - 36.5 g/dL 06/22/2023 9:24 AM CDT UR LABORATORY RDW 13.0 10.0 - 15.0 % 06/22/2023 9:24 AM CDT UR LABORATORY Platelet Count 238 150 - 450 10e3/uL 06/22/2023 9:24 AM CDT UR LABORATORY % Neutrophils 74 % 06/22/2023 9:24 AM CDT UR LABORATORY % Lymphocytes 19 % 06/22/2023 9:24 AM CDT UR LABORATORY % Monocytes 6 % 06/22/2023 9:24 AM CDT UR LABORATORY % Eosinophils 1 % 06/22/2023 9:24 AM CDT UR LABORATORY % Basophils 0 % 06/22/2023 9:24 AM CDT UR LABORATORY % Immature Granulocytes 0 % 06/22/2023 9:24 AM CDT UR LABORATORY NRBCs per 100 WBC 0 <1 /100 023 9:24 AM CDT UR LABORATORY Absolute Neutrophils 6.1 1.6 - 8.3 10e3/uL 06/22/2023 9:24 AM CDT UR LABORATORY Absolute Lymphocytes 1.6 0.8 - 5.3 10e3/uL 06/22/2023 9:24 AM CDT UR LABORATORY Absolute Monocytes 0.5 0.0 - 1.3 10e3/uL 06/22/2023 9:24 AM CDT UR LABORATORY Absolute Eosinophils 0.1 0.0 - 0.7 10e3/uL 06/22/2023 9:24 AM CDT UR LABORATORY Absolute Basophils 0.0 0.0 - 0.2 10e3/uL 06/22/2023 9:24 AM CDT UR LABORATORY Absolute Immature Granulocytes 0.0 <=0.4 10e3/uL 06/22/2023 9:24 AM CDT UR LABORATORY Absolute NRBCs 0.0 10e3/uL 06/22/2023 9:24 AM CDT UR LABORATORY Blood BLOOD SPECIMEN / Unknown Venipuncture / Unknown 06/22/2023 8:54 AM CDT 06/22/2023 9:14 AM CDT Iraida Trent MD LAB - BLOOD ORDERABL ES UR LABORATORY [facility] [address] [facility], [address] [place] [address] [phone] documented in this encounter Visit Diagnoses Diagnosis Hx of cerclage, currently with other poor obstetric history History of delivery, currently with history of pre-term labor documented in this encounter Admitting Diagnoses Diagnosis Hx of cerclage, currently with other poor obstetric history documented in this encounter Administered Medications Inactive Administered Medications - up to 3 most recent administrations Medication Order MAR Action Action Date Dose Rate Site acetaminophen (TYLENOL) tablet 650 mg 650 mg, Oral, ONCE PRN, mild pain, to moderate pain, Starting on Tue06/22/23 at 1249, One time prior to discharge. Maximum acetaminophen dose from all sources = 75 mg/kg/day not to exceed 4 grams/day. lactated ringers infusion at 125 mL/hr, Intravenous, CONTINUOUS, Pre-procedure, Starting on Tue06/22/23 at 0900, Until Tue06/22/23 at 1327 $New Bag 06/22/2023 9:12 AM CDT 125 mL/hr PRE OP antibiotics NOT needed for this surgical procedure CONTINUOUS, Starting on Tue06/22/23 at 0900, Until Tue06/22/23 at 1327, PRE OP antibiotics NOT needed for this surgical procedure., Pre-procedure $Given 06/22/2023 9:13 AM CDT 1 each rho(D) immune globulin (RHOPHYLAC) injection 300 mcg 300 mcg, Intramuscular, ONCE, On Tue06/22/23 at 1300, For 1 dose, Give AFTER Rh Immune Globulin screen is drawn, if ordered. Give intramuscularly if no IV route available. $Given 06/22/2023 1:44 PM CDT 300 mcg sodium citrate-citric acid (BICITRA) solution 30 mL 30 mL, Oral, ONCE, On Tue06/22/23 at 0900, For 1 dose, Only for gastric pH neutralization. Give 45 minutes pre-op before transporting to surgery., Pre-procedure $Given 06/22/2023 9:07 AM CDT 30 mLs documented in this encounter Active and Recently Administered Medications Times are shown in CDT. Scheduled Medication Order 06/20/2023 06/21/2023 06/22/2023 rho(D) immune globulin (RHOPHYLAC) injection 300 mcg (COMPLETED)(Linked Group 1) 300 mcg, Intramuscular, ONCE, On Tue06/22/23 at 1300, For 1 dose, Give AFTER Rh Immune Globulin screen is drawn, if ordered. Give intramuscularly if no IV route available. 1344 ($Given - Provi jerman: Simi Ortiz RN) sodium citrate-citric acid (BICITRA) solution 30 mL (COMPLETED) 30 mL, Oral, ONCE, On Tue06/22/23 at 0900, For 1 dose, Only for gastric pH neutralization. Give 45 minutes pre-op before transporting to surgery., Pre-procedure 0907 ($Given - Provi jerman: Bridgett Delgado RN) Continuous Medication Order 06/20/2023 06/21/2023 06/22/2023 lactated ringers infusion (CANCELED) at 125 mL/hr, Intravenous, CONTINUOUS, Pre-procedure, Starting on Tue06/22/23 at 0900, Until Tue06/22/23 at 1327 0912 ($New Bag - Pro vider: Bridgett Delgado RN)1244 (Stopped - Provider: Bridgett Delgado RN) PRE OP antibiotics NOT needed for this surgical procedure (CANCELED) CONTINUOUS, Starting on Tue06/22/23 at 0900, Until Tue06/22/23 at 1327, PRE OP antibiotics NOT needed for this surgical procedure., Pre-procedure 0913 ($Given - Provi jerman: Bridgett Delgado RN) PRN Medication Order 06/20/2023 06/21/2023 06/22/2023 acetaminophen (TYLENOL) tablet 650 mg 650 mg, Oral, ONCE PRN, mild pain, to moderate pain, Starting on Tue06/22/23 at 1249, One time prior to discharge. Maximum acetaminophen dose from all sources = 75 mg/kg/day not to exceed 4 grams/day. Linked Groups Order Group 1: rho(D) immune globulin (RHOPHYLAC) injection 300 mcg (COMPLETED) 300 mcg, Intravenous, ONCE, On Tue06/22/23 at 1300, For 1 dose, Give AFTER Rh Immune Globulin screen is drawn, if ordered. Or rho(D) immune globulin (RHOPHYLAC) injection 300 mcg (COMPLETED)Jump to med 300 mcg, Intramuscular, ONCE, On Tue06/22/23 at 1300, For 1 dose, Give AFTER Rh Immune Globulin screen is drawn, if ordered. Give intramuscularly if no IV route available. documented in this encounter Care Teams Vp Site Relationship Specialty Start Date End Date Audra Olmstead [address] [address] PCP - General software asset manager 06/09/23 Xiomara Thomas MD [address] [id number] Assigned OBGYN Provider 05/22/22 documented as of this encounter
--- OUTSIDE RECORDS SUMMARY | 2023-10-24 11:29 | XMS_ITS | Encounter Summary ---
Author Name Unknown Organization [place] Address [address] [place] [address]. [place] [address] Care Team Providers Care Unarmed Security Guard Name Role Phone Xiomara Thomas MD Unavailable [phone] Reason for Referral * Consultation (Routine: Next available opening) - Pending Review Specialty Diagnoses / Procedures Referred By Rosalina bentley Referred To Contact Diagnoses related condition, antepartum Divinedecember [facility] [address] [place] [address] Maternal Med [address] [address] [place] [address] Referral ID Status Reason Start Date Expiration Date V isits Requested Visits Authorized [id number] Pending Review 05/19/2023 05/18/2024 1 1 Question Answer Preferred Location: [facility] [place] 12/24/2023 Ultrasound NONE US PROC NONE MFM Issue OTHER (enter details in Comments) - Personal history of other complications in . History of PPRPM @19w4d with delivery; twin gestation. WILSON RONQUILLO Consultation (unrelated to Ultrasound findings): Yes fax December [place]. [facility]. [phone] Comments There is no height or weight on file to calculate BMI. >> Patient may proceed with recommendations for further testing as directed by the Maternal Medicine Specialist >> >> If requesting Echo: MFM will determine appropriate location for exam due to indication. >> If requesting Lung Maturity Amnio: If results indicate lung maturity, induction or C/S is recommended within 36 hours. Please schedule accordingly. Please be aware that coverage of these services is subject to the terms and limitations of your health insurance plan. Call member services at your health plan with any benefit or coverage questions. Encounter Details Date Type Department Care Team (Latest Contact Info) Description 05/19/2023 Transcribe Orders [facility] [place] [address] [address] [place] [id number] Tiny Burns [facility] [address] [facility] [place] [id number] related condition, antepartum (Primary Dx) Social History Tobacco Use Types Packs/Day Years Used Date Smoking Tobacco: Never Assessed Sex and Gender Information Value Date Recorded Sex Assigned at Not on file Gender Identity Not on file Sexual Orientation Not on file documented as of this encounter Plan of Treatment Scheduled Referrals Name Type Priority Associated Diagnoses Orde r Schedule Mat Med Ctr Referral - Referral Routine: Next available opening related condition, antepartum Expected: 05/19/2023 (Approximate), Expires: 11/15/2023 documented as of this encounter Visit Diagnoses Diagnosis related condition, antepartum- Primary documented in this encounter Care Teams Unarmed Security Guard Relationship Specialty Start Date End Date Xiomara Thomas MD [address] [facility] [address] [place] [address] Assigned OBGYN Provider 05/22/22 documented as of this encounter
--- OUTSIDE RECORDS SUMMARY | 2023-10-24 11:29 | XMS_ITS | Encounter Summary ---
Author Name Unknown Organization [place] Address [address] [facility] [place] [address] Care Team Providers Care Ticker Installer Name Role Phone Xiomara Thomas MD Unavailable [phone] Encounter Details Date Type Department Care Team (Latest Contact Info) Description 06/02/2023 Travel Social History Tobacco Use Types Packs/Day [...] suspected to have Coronavirus/COVID-19? No / Unsure 06/02/2023 9:35 AM CDT documented as of this encounter Plan of Treatment Not on file documented as of this encounter Visit Diagnoses Not on filedocumented in this encounter Care Teams Ticker Installer Relationship Specialty Start Date End Date Xiomara Thomas MD [address] [facility] [address] [place] [address] Assigned OBGYN Provider 05/22/22 documented as of this encounter
--- OUTSIDE RECORDS SUMMARY | 2023-10-24 11:29 | XMS_ITS | Encounter Summary ---
Author Name Unknown Organization [place] Address [facility] [place] [address] Care Team Providers Care Dairy Equipment Mechanic Name Role Phone Xiomara Thomas MD Unavailable [phone] Reason for Referral * Consultation (Routine: Next available opening) - Pending Review Specialty Diagnoses / Procedures Referred By Contac t Referred To Contact Diagnoses related condition, antepartum History of delivery, currently Delon Lane MD [address] [address] Referral ID Status Reason Start Date Expiration Date V isits Requested Visits Authorized [id number] Pending Review 05/19/2023 05/18/2024 1 1 Question Answer MFM Consult Yes Comments PAC * Diagnostic Imaging Ultrasound (Routine) - Pending Review Specialty Diagnoses / Procedures Referred By Contac t Referred To Contact Radiology. Diagnoses related condition, antepartum History of delivery, currently Procedures MFM US OB Complete 1st Tri Single Delon Lane MD [address] [place] [address] Referral ID Status Reason Start Date Expiration Date V isits Requested Visits Authorized [id number] Pending Review 05/19/2023 05/18/2024 1 1 Encounter Details Date Type Department Care Team (Late st Contact Info) Description 05/19/2023 Orders Only [facility] [address] [place] [address] Oneyda Reza, RN related condition, antepartum (Primary Dx); History of delivery, currently Social History Tobacco Use Types Packs/Day Years Used Date Smoking Tobacco: Never Assessed Sex and Gender Information Value Date Recorded Sex Assigned at Not on file Gender Identity Not on file Sexual Orientation Not on file documented as of this encounter Plan of Treatment Scheduled Referrals Name Type Priority Associated Diagnoses Orde r Schedule MF Office Visit Referral Routine: Next available opening related condition, antepartum History of delivery, currently Expected: 05/19/2023 (Approximate), Expires: 05/19/2024 documented as of this encounter Results * MFM US OB Complete 1st Tri Single (06/09/2023 10:26 AM CDT) Anatomical Region Laterality Modality Ultrasound 06/09/2023 10:0 5 AM CDT Impressions 06/09/2023 11:31 AM CDT IMPRESSION ----- 1. Rios intrauterine at 11w 5d gestational age here for aneuploidy risk assessment 2. The nuchal translucency measurement is within the normal range. 3. The nasal bone was visualized. 4. Measurements consistent with established dates. Narrative 06/09/2023 11:31 AM CDT NT ----- Pat. Name: AUDRA DHALIWAL Study Date: 06/09/2023 10:05am Pat. NO: [id number] Referring ??MD: DECEMBER SHELBY Site: [facility] [employer] Dies Loader: Adore Hernandez RDMS : 1995 Age: 27 ----- INDICATION ----- History of Premature Rupture of Membranes (PPROM) twins at 19 weeks METHOD ----- Transabdominal ultrasound examination. View: Sufficient ----- Rios . Number of fetuses: 1 DATING ----- ? Date ?Details ?Gest. age ?LU[place] LMP ?03/19/2023 ? 11 w + 5 d ? 12/24/2023 Prior assessment ? 05/19/2023 ? GA: 8 w + 5 d ?11 w + 5 d ? 12/24/2023 U/S ? 06/09/2023 ? based upon CRL ?11 w + 6 d ?12/23/2023 Assigned dating ?Dating performed on 06/09/2023, based on the LMP ?11 w + 5 d ?12/24/2023 GENERAL EVALUATION ----- Cardiac activity present. Placenta anterior. Cord vessels normal insertion. Amniotic fluid normal amount. BIOMETRY ----- FHR ?157 ? bpm CRL ? 52.2 ? mm ?11w 6d ?Hadlock NT ? 1.40 ?mm ANATOMY ----- Face: Nasal bone present Neck: Normal Nuchal Translucency The following structures appear normal: Cranium. Abdominal wall. Stomach. Bladder. Arms. Legs. MATERNAL STRUCTURES ----- Cervix ?Visualized ? Appearance: Appears Closed Right Ovary ?Visualized Left Ovary ?Visualized RECOMMENDATION ----- Thank-you for referring your patient for MFM consult & ultrasound assessment. We discussed the results of the ultrasound with the patient. Your patient is having cell free DNA screening with your office next week. Because cell free DNA screening does not screen for open neural tube defects, the patient should be offered MSAFP screening at 15-20 weeks gestation. Comprehensive ultrasound is recommended with our office at 18-20 weeks (scheduled today). Please see separate note in Epic for full details from today's consult visit including recommendations for ongoing management. Return to primary provider for continued care. If you have questions regarding today's evaluation or if we can be of further service, please contact the Maternal- Medicine Center. anomalies may be present but not detected Procedure Note Xiomara Thomas MD - 06/09/2023 NT ----- Pat. Name:Debora DHALIWAL Date:06/09/2023 10:05am Pat. NO: [id number] MD:NIKOLAI RYAN [facility]Adore Hernandez RDMS :1995Age: ----- INDICATION ----- History of Premature Rupture of Membranes (PPROM) twins at 19weeks METHOD ----- Transabdominal ultrasound examination. View: Sufficient ----- Rios . Number of fetuses: 1 DATING ----- DateDetailsGest. age LUCRET[place] LMP w + 5 d 12/24/2023 Prior assessment 05/19/2023 GA: 8 w +5 d11 w + 5 d 12/24/2023 U/S 3based upon CRL11 w + 6 d 12/23/2023 Assigned dating Dating performed on 06/09/2023, based onthe LMP 11 w +5 d 12/24/2023 GENERAL EVALUATION ----- Cardiac activity present. Placenta anterior. Cord vessels normal insertion. Amniotic fluid normal amount. BIOMETRY ----- FHR 157 bpm CRL 52.2 mm11w 6d Hadlock NT 1.40 mm ANATOMY ----- Face: Nasal bone present Neck: Normal Nuchal Translucency The following structures appear normal: Cranium. Abdominal wall. Stomach. Bladder. Arms. Legs. MATERNAL STRUCTURES ----- Cervix Visualized Appearance: Appears Closed Right Ovary Visualized Left Ovary Visualized RECOMMENDATION ----- Thank-you for referring your patient for [facility] consult & ultrasoundassessment. We discussed the results of the ultrasound with the patient. Your patient is having cell free DNA screening with your office next week.Because cell free DNA screening does not screen for open neural tubedefects, the patient should be offered MSAFP screening at 15-20 weeks gestation. Comprehensive ultrasound is recommended with our office at 18-20 weeks(scheduled today). Please see separate note in Epic for full details fromtoday's consult visit including recommendations for ongoing management. Return to primary provider for continued care. If you have questions regarding today's evaluation or if we can be offurther service, please contact the Maternal- Medicine Center. anomalies may be present but not detected IMPRESSION ----- 1. Rios intrauterine at 11w 5d gestational age here foraneuploidy risk assessment 2. The nuchal translucency measurement is within the normal range. 3. The nasal bone was visualized. 4. Measurements consistent with established dates. Delon [facility] US ORDERABL ES documented in this encounter Visit Diagnoses Diagnosis related condition, antepartum- Primary History of delivery, currently with history of pre-term labor related condition, antepartum History of delivery, currently with history of pre-term labor documented in this encounter Care Teams Dairy Equipment Mechanic Relationship Specialty Start Date End Date Xiomara Thomas MD [address] [place] [id number] Assigned OBGYN Provider 05/22/22 documented as of this encounter
--- OUTSIDE RECORDS SUMMARY | 2023-10-24 11:29 | XMS_ITS | Encounter Summary ---
Author Name Unknown Organization [place] Address [facility] [place] [address] Care Team Providers Care Websphere Consultant Name Role Phone Xiomara Thomas MD Unavailable [phone] Audra Olmstead Primary Care Provider [phone] Reason for Referral * Diagnostic Imaging Ultrasound (Routine) - Pending Review Specialty Diagnoses / Procedures Referred By Contac t Referred To Contact Radiology. Diagnoses related condition, antepartum History of delivery, currently Procedures [facility] US Comprehensive Single Xiomara Thomas MD [address] [place] [address] Referral ID Status Reason Start Date Expiration Date V isits Requested Visits Authorized [id number] Pending Review 06/09/2023 06/08/2024 1 1 Reason for Visit * Reason Comments Ultrasound 1st trimester US; pl anning genetic screening with PCP next week Consult [facility] consult: hx PPRO M at 19 weeks twins, del 20+weeks * Consultation (Routine: Next available opening) - Pending Review Specialty Diagnoses / Procedures Referred By Rosalina t Referred To Contact Diagnoses related condition, antepartum History of delivery, currently Delon Lane MD [address] [place] [address] Referral ID Status Reason Start Date Expiration Date V isits Requested Visits Authorized [id number] Pending Review 05/19/2023 05/18/2024 1 1 Encounter Details Date Type Department Care Team (Late st Contact Info) Description 06/09/2023 11:00 AM CDT Office Visit [facility] [place] [address] [place], [place] [address] Xiomara Thomas MD [address] [place] [address] History of delivery, currently (Primary Dx); related condition, antepartum Social History Tobacco Use Types Packs/Day Years Used Date Smoking Tobacco: Never Assessed Estimated Date of Delivery Comme nts Yes [...] suspected to have Coronavirus/COVID-19? No / Unsure 06/09/2023 9:54 AM CDT documented as of this encounter Last Filed Vital Signs Vital Sign Reading Time Taken Comments Blood Pressure 109/72 06/09/2023 11:44 AM CDT Pulse 80 06/09/2023 11:44 AM CDT Temperature - - Respiratory Rate 18 06/09/2023 11:44 AM CDT Oxygen Saturation 100% 06/09/2023 11:44 AM CDT Inhaled Oxygen Concentration - - Weight - - Height - - Body Mass Index - - documented in this encounter Progress Notes * Xiomara Thomas MD - 06/09/2023 11:00 AM CDT Images from the original note were not included. Maternal- Medicine Consultation Audra Dhaliwal : 1995 REFERRAL: Audra Dhaliwal is a 27 year old sent by Tiny Ryan PA-C from [facility] for MFM consultation. HPI: Audra Dhaliwal is a 27 year old at 11w5d by LMP consistent with 8w5d US here for [facility] consultation regarding management of current , given recent history of PPROM and labor resulting in demise of twin gestation in 04/2022 at 20w6d. That was notable for PPROMof Twin B at 19w2d; her was otherwise uncomplicated. PPROM was confirmed after evaluationin the hospital revealed positive pooling and a visually dilated cervix to 0.5 cm. Subsequent ultrasound showed oligohydramnios around Twin B. Labs drawn during her evaluation showed a WBC count of 13.39 with left shift and positive GBS status. There was no evidence of placental abruption. She was then discharged home and referred to [facility] for further management recommendations. During her [facility] visit, she was counseled regarding the high likelihood of subsequent previable delivery after previable PPROM, and the implications of previable delivery on the fetuses. Management options were discussed,including expectant management versus termination, and the patient elected for expectant management. The visit concluded with plans for patient to check vital signs at home daily, plan for weekly visits, pelvic rest and plan for inpatient management at 22 weeks, when she would receive betamethasone, latency antibiotics, and magnesium sulfate for neuro-protection if delivery waseminent. Unfortunately, at 20w4d the patient presented to the hospital in labor and delivered previable twin fetuses 2 days later at 20w6d; EBL was 700 mL. The delivery was complicated by retained placentas, necessitating an emergent D&C, with an intraoperative blood loss of 200 mL. Patient is here today to discuss likelihood of having a similar outcome for her current , and to review possible management options to lower risk of delivery. Patient is here with her mom, Padmini. Care: Primary OB care this has been with Tiny Ryan PA-C from [facility]. Obstetrics History: OB History Para Term AB Living 3 2 1 1 0 1 SAB IAB Ectopic Multiple Live Births 0 0 0 1 1 # Outcome Date GA Lbr Trey/2nd Weight Sex Delivery Anes PTL Lv 3 Current 2A 05/23/22 20w6d 05:27 / 00:39 M Y FD Name: DARCI DHALIWAL FD Apgar1: 0 Apgar5: 0 2B 08/28/22 20w6d 05:27 / 00:04 M Y FD Name: DARCI DHALIWAL FD Apgar1: 0 Apgar5: 0 1 Term 03/26/21 41w0d 3.6 kg (7 lb 15 oz) M CS-Unspec [facility] Complications: Failure to Progress in Second Stage Gynecologic History: - Last Pap: NILM (06/2022) Past Medical History: Past Medical History: Diagnosis Date Anxiety Depression Past Surgical History: Past Surgical History: Procedure Laterality Date BIOPSY/REMOVAL, LYMPH NODE(S) Neck-benign SECTION TONSILLECTOMY & ADENOIDECTOMY Wagoner teeth Per patient, her delivery was complicated by extensions, and she was told a TOLAC was contraindicated Current Medications: Prior to Admission medications Not on File Allergies: Patient has no known allergies. Social History: Status: Family History: She specifically denies a family history of motor/intellectual impairment, stillbirth, genetic or chromosome abnormalities or congenital anomalies. ROS: ROS negative except as in HPI PHYSICAL EXAM: BP 109/72 (BP Location: Left arm, Patient Position: Sitting, Cuff Size: Adult Regular) Pulse 80 Resp 18 LMP 03/19/2023 SpO2 100% Gen: Well appearing, NAD Pulm: Non labored breathing on room air : On sterile speculum exam the cervix is closed and normal in length with no obvious cervical defects Labs: No placental pathology available for review Chromosome analysis (05/23/2022): Twin A: 46, XY Twin B: 46, XY Imaging: US today IMPRESSION 1. Rios intrauterine at 11w 5d gestational age here for aneuploidy risk assessment 2. The nuchal translucency measurement is within the normal range. 3. The nasal bone was visualized. 4. Measurements consistent with established dates. ASSESSMENT/PLAN: Audra Dhaliwal is a 27 year old at 11w5d by LMP consistent with 8w5d US here for MFM consultation regarding management of current , given recent history of previable PPROM subsequent delivery at 20w6d with demise of both twins. As you know and as I explained to Ms. Dhaliwal - there is not 100% clarity into the reason for her previable PPROM in her most recent . We discussed potential causes/contributors including herprior history of a complicated with extensions bilaterally into the cervix, the fact that her last was twins, and possible cervical insufficiency as she was visibly dilated 0.5cm at the time of presentation with previable PPROM. We discussed that typically cervical insufficiency is suspected/diagnosed based on a history of painless cervical dilation after the first trimester with subsequent loss or delivery, typically, prior to 24 weeks. In someone with a history suspicious for cervical insufficiency there are two main strategies for management in a subsequent : placement of an elective, early (<14 weeks of gestation) cerclage or cerclage placement only when ultrasound demonstrates cervical shortening. I discussed the risks, benefits, limitations and alternatives of each approach. We discussed that a history-indicated cerclage is typically placedat the end of the first trimester (13 to 14 weeks of gestation). In patients who choose serial cervical length screening we typically monitor the cervical length via ultrasound every 2 weeks from 16-23 weeks and reserve cerclage placement for patients with a cervical length less than 25 mm. This michael kauffman may avoid unnecessary cerclage placement in up to 50% of patients. We discussed that in some patients, when cervical insufficiency is not fully suspected or there are multiple possible explanations that some may favor the serial cervical length screening approach. However, after counseling Jerrodultert would like to proceed with history indicated cerclage placement. We discussed scheduling this in the next 1-2 weeks. Recommendations: Genetic Screening - Genetic counseling visit and cell free DNA for genetic screening if desired between 11-13 weeks - Patient plans to have testing done next week with her primary OB Medications - Continue Buspar and Prozac as prescribed - Continue vitamins Laboratory Evaluation - Urine culture every trimester with aggressive treatment of bacteriuria Maternal Antepartum Management - Recommend routine antepartum management with obstetrics provider - Planning history indicated cerclage placement between 12-14 weeks, scheduled for 06/22/2023 - Clinical evaluation of labor symptoms - Consider administration of corticosteroids if the patient is deemed to be at increased risk of imminent delivery - Cerclage removal with our office at 37 weeks or at the time of delivery Ultrasound Surveillance - Comprehensive ultrasound at 18-20 weeks with our office Timing and Mode of Delivery - Previously recommended to have a repeat by her primary OB based on her prior 's operative report (complicated extension with repair) The patient was seen and evaluated with Dr. Thomas Thank you for allowing us to participate in the care of your patient. Please do not hesitate to contact us if you have further questions regarding the management of your patient. Eliane Elliott MD Manager Subway Resident, PGY-2 MFM Attending Attestation I have seen and evaluated the patient with Dr. Elliott. I reviewed her chart and agree with the above documented assessment and plan. I spent a total of 60 minutes on the date of this encounter including preparing to see the patient (reviewing medical records/tests), counseling and discussing the plan of care, documenting the visit in the electronic medical record, and communicating with other health career manager and/or care coordination.Please see her note for specific details; I have made the necessary edits/additions. The patient was also seen for an ultrasound in the Maternal- Medicine Center at the [facility] today. For a detailed report of the ultrasound examination, please see the ultrasound report which can be found under the imaging tab. Xiomara Thomas MD Maternal Medicine Physician documented in this encounter Nursing Notes * Oneyda Reza RN - 06/09/2023 11:00 AM CDT Audra seen in clinic today at 11w5d gestation for 1st trimester US/MFM Consult d/t hx PPROM/PTD at19/20 weeks, hx PPH, hx CS, anx/dep. Pt here with her mother. VS obtained. Meds and allergies reviewed. Patient reports not yet feeling movement, denies pain, denies contractions/pre-term labor, leaking of fluid, or bleeding. Patient denies headache, visual changes, nausea/vomiting, epigastric pain related to preeclampsia. Dr. Elliott and Dr. Thomas met with pt and discussed POC, see separate note. Plan for cerclage on 06/22/23. Future visits scheduled at senior front end engineer. Pt discharged stable and ambulatory. Oneyda Reza, RN documented in this encounter Plan of Treatment Not on file documented as of this encounter Results * [facility] Comprehensive Single (07/29/2023 10:05 AM CDT) Anatomical [...] ? Study Date: ??07/29/2023 9:19am Pat. NO: ??[id number] ?Referring ??MD: DECEMBER SHELBY Site: ??[facility] ? Trimmer Machine Operator: ??Anamaria Kinsey RDMS : ??1995 ?Age: [...] lb 10 ? oz EFW by ?Hadlock ([id number]) Head / Face / Neck Biometry: Learning Services Coordinator ? 5.5 ? mm CM ?4.0 ? [...] cava. Inferior vena cava. 3-vessel ? view. 4-kquept-uwggxus view. Cardiac position. Cardiac size. Cardiac rhythm. [...] DHALIWAL Study Date: 07/29/2023 9:19am Pat. NO: [id number] Referring MD: TINY RYAN Site: [facility] Trimmer Machine Operator: Anamaria Kinsey RDMS : 1995 Age: 28 ----- INDICATION ----- History of Premature Rupture of Membranes (PPROM) twins at 19weeks METHOD ----- Transabdominal ultrasound examination. View: Sufficient ----- Rios . Number of fetuses: 1 DATING ----- DateDetailsGest. age LUCRETIA LMP 8 w + 6 d 12/24/2023 Prior assessment [...] 0 lb 10 oz EFW by Hadlock ([id number]) Head / Face / Neck Biometry: Learning Services Coordinator 5.5 mm CM 4.0 mm Nasal bone [...] Superior venacava. Inferior vena cava. 3-vessel view. 1-iybkew-hsctcvc view.Cardiac position. Cardiac size. Cardiac rhythm. Right [...] and closed withcerclage visualized. Xiomara Thomas MD [facility] US ORDERABLE S documented in this encounter Visit Diagnoses Diagnosis History of delivery, currently - Primary with history of pre-term labor related condition, antepartum related condition, antepartum History of delivery, currently with history of pre-term labor documented in this encounter Care Teams Websphere Consultant Relationship Specialty Start Date End Date Audra Olmstead [address] [address] PCP - General correspondence representative 06/09/23 Xiomara Thomas MD [address] [address] Assigned OBGYN Provider 05/22/22 documented as of this encounter
--- OUTSIDE RECORDS SUMMARY | 2023-10-24 11:29 | XMS_ITS | Encounter Summary ---
Author Name Unknown Organization [place] Address [address] [facility] [address] Care Team Providers Care Dairy Farm Supervisor Name Role Phone Xiomara Thomas MD Unavailable [phone] Mercedes Olmstead Primary Care Provider [phone] Reason for Visit * Reason Comments cerclage Encounter Details Date Type Department Care Team (Latest Contact Info) Description 06/22/2023 7:57 AM CDT - 06/22/2023 4:59 PM CDT Hospital Encounter [facility] [address] [place] [phone] Easton Bhatt MD [address] [facility] [address] [place] [address] Discharge Disposition: Home or Self Care Social [...] will take place at: [facility] (4th floor, [facility]) [facility] [address] [facility] After you enter the hospital, follow the signs to the East Building. Take the A elevator to the 4th floor. Follow the signs to the main desk. You will need to ring the doorbell, and someone will let you in. Where do I park? On Avenue, follow the signs to park in the Green garage beneath the [facility] School Resource Officer parking is also available at the main [...] your routine care. Your provider and the M specialist will decide on your ongoing care. [...] through Tuesday, 8 a.m. to 4:30 p.m.) [facility] Maternal- Medcine Center [phone] [facility] Maternal- Medcine Center [phone] [facility] Maternal- Medicine Center [phone] If it is after business hours: Call the Birthplace at [phone]. Ask for the [facility] doctor insurance operations rep. For informational purposes only. Not to replace the advice of your health care provider. illustration page 1 (ID [id number]) ?? Ryan, [email or web address]. Copyright ?? 2005 [place] [employer] [facility]. All rights reserved. Clinically reviewed by Hannah Flowers RN, Maternal- Medicine Ce nter. [employer] [id number] - REV 07/16. documented in this encounter Medications at Time of Discharge Medication Sig Dispensed Refills Start Date End Date busPIRone (BUSPAR) 15 MG tablet 0 FLUoxetine (PROZAC) 40 MG capsule Take 40 mg by mouth daily 0 04/06/2023 Londhsvd-Bsx-Th-FA ( 1 + IRON OR) Take by [...] Trent MD - 06/22/2023 8:54 AM CDT [facility] OB History and Physical Mercedes Dhaliwal Age: [age] year old Date of : 1995 CC: History indicated cerclage HPI: Mercedes Dhaliwal is a 27 year old at [...] PTL Lv 3 Current 2A 05/23/22 20w6d 05: 00:39 M Y FD Name: DARCI DHALIWAL FD Apgar1: 0 Apgar5: 0 2B 05/23/22 20w6d [...] LYMPH NODE(S) Neck-benign SECTION TONSILLECTOMY & ADENOIDECTOMY Bells teeth Meds: No medications prior to admission. [...] LE edema b/l Cx: Deferred Assessment/Plan Ms. Mercedes Dhaliwal is a 27 year old at [...] a total of 20 minutes, including both uofl-nf-txck and fwp-svmy-xr-face on the date of the encounter, addressing [...] Fellow: WILSON Leroy Fellow Medical Student: Stephanie Mitchell, MS4 Anesthesia: Spinal Estimated Blood Loss: 5cc Findings: 1) Cervix not dilated prior to the procedure, closed following the procedure 2) heart tones confirmed by doptone following the procedure Specimens: 1) None Complications: 1) None apparent History: Mercedes Dhaliwal is a 27 year oldy.o. at [...] CDT UR BLOOD BANK SPECIMEN EXPIRATION DATE [id number] 06/22/2023 12:49 PM CDT UR BLOOD BANK Blood BLOOD SPECIMEN / Unknown Venipuncture / Unknown 06/22/2023 8:54 AM CDT 06/22/2023 9:15 AM CDT Iraida Trent MD LAB - BLOOD BANK STEPHON T ORDER UR BLOOD BANK [facility] Blood Components Lab [address] [facility] [place] [address], [facility] [phone] * Adult Type and Screen (06/22/2023 8:54 AM CDT) Pathologist [facility] ABO/RH(D) O NEG 06/22/2023 8:55 AM CDT UR BLOOD BANK Antibody Screen Negative Negative 06/22/2023 8:55 AM CDT UR BLOOD BANK SPECIMEN EXPIRATION DATE [id number] 06/22/2023 8:55 AM CDT UR BLOOD BANK Blood BLOOD SPECIMEN / Unknown Venipuncture / Unknown 06/22/2023 8:54 AM CDT 06/22/2023 9:15 AM CDT Iraida Trent MD LAB - BLOOD BANK STEPHON T ORDER UR BLOOD BANK [facility] Blood Components Lab [address] [facility] [place] [address], [facility] [phone] * CBC with platelets and differential (06/22/2023 [...] LAB - BLOOD ORDERABL ES UR LABORATORY [facility] Acute Care Lab [address] [facility] [place] [address], [facility] [phone] documented in this encounter Visit Diagnoses Diagnosis Hx of cerclage, currently with other poor obstetric history documented in this encounter Admitting Diagnoses Diagnosis [...] minutes pre-op before transporting to surgery., Pre-procedure 09 ($Given - Provi jerman: Bridgett Delgado RN) [...] NOT needed for this surgical procedure., Pre-procedure 09 ($Given - Provi jerman: Bridgett Delgado RN) [...] available. documented in this encounter Care Teams Dairy Farm Supervisor Relationship Specialty Start Date End Date Mercedes Olmstead [facility] [address] [place] [address] PCP - General global account director 06/09/23 Xiomara Thomas MD [address] [place] [address] Assigned OBGYN Provider 05/22/22 documented as of this encounter
--- OUTSIDE RECORDS SUMMARY | 2023-10-24 11:29 | XMS_ITS | Encounter Summary ---
Author Name Unknown Organization [place] Address [facility] [place] [address] Care Team Providers Care Eap Consultant Name Role Phone Xiomara Thomas MD Unavailable [phone] Encounter Details Date Type Department Care Team (Late Contact Info) Description 05/19/2023 Medical Correspondence [facility] Mgmt [facility] [address] [place] [id number] Outside, Provider Social History Tobacco Use Types Packs/Day Years Used Date Smoking Tobacco: Never Assessed Sex and Gender Information Value Date Recorded Sex Assigned at Not on file Gender Identity Not on file Sexual Orientation Not on file documented as of this encounter Plan of Treatment Not on file documented as of this encounter Visit Diagnoses Not on filedocumented in this encounter Care Teams Eap Consultant Relationship Specialty Start Date End Date Xiomara Thomas MD [address] [facility] [address] [place], [place] [address] Assigned OBGYN Provider 05/22/22 documented as of this encounter
--- OUTSIDE RECORDS SUMMARY | 2023-10-24 11:29 | XMS_ITS | Encounter Summary ---
Author Name Unknown Organization [place] Address [facility] [place] [address] Care Team Providers Care Workforce Development Vice President Name Role Phone Xiomara Thomas MD Unavailable [phone] Mercedes Olmstead Primary Care Provider [phone] Encounter Details Date Type Department Care Team (Latest Contact Info) Description 06/09/2023 Travel Social History Tobacco Use Types Packs/Day [...] on filedocumented in this encounter Care Teams Workforce Development Vice President Relationship Specialty Start Date End Date Mercedes Olmstead [facility] [address] [place] [address] PCP - General water resources technical officer 06/09/23 Xiomara Thomas MD [address] [address] Assigned OBGYN Provider 05/22/22 documented as of this encounter
--- OUTSIDE RECORDS SUMMARY | 2023-10-24 11:29 | XMS_ITS | Encounter Summary ---
Author Name Unknown Organization [place] Address Counts include 234 beds at the [facility] [place] [address] Care Team Providers Care Subscription Agent Name Role Phone Xiomara Thomas MD Unavailable [phone] Reason for Visit * Reason Comments Ultrasound 1st Tri US- Hx C/S x 1, Hx PPROM @ 19 wks with PTD @ 20 weeks- Twin & PPH, Anx/Dep Consult MFM-Hx C/S x1, Hx PP ROM @ 19 wks with PTD @ 20 weeks- Twin & PPH, Anx/Dep Encounter Details Date Type Department Care Team (Late st Contact Info) Description 06/03/2023 PRE VISIT [facility] M[facility] Medicine [facility] [place] [address] [place] [address] Malena Ray RN Ultrasound (1st Tri US- Hx C/S x1, Hx PPROM @ 19 wks with PTD @ 20 weeks- Twin & PPH, Anx/Dep); Consult (MFM-Hx C/S x1, Hx PPROM @ 19 wks with PTD @ 20 weeks- Twin & PPH, Anx/Dep) Social History Tobacco Use Types Packs/Day Years Used Date Smoking Tobacco: Never Assessed Tobacco Cessation:Counseling Given: Not Answered Estimated Date of Delivery Comme nts Yes 12/24/2023 Based on last me nstrual period of 03/19/2023 Sex and Gender Information Value Date Recorded Sex Assigned at Not on file Gender Identity Not on file Sexual Orientation Not on file COVID-19 Exposure Response Date Recorded In the last 10 days, have jazmyn u been in contact with someone who was confirmed or suspected to have Coronavirus/COVID-19? No / Unsure 06/02/2023 9:35 AM CDT documented as of this encounter Plan of Treatment Not on file documented as of this encounter Visit Diagnoses Not on filedocumented in this encounter Care Teams Subscription Agent Relationship Specialty Start Date End Date Xiomara Thomas MD [address] [address] Assigned OBGYN Provider 05/22/22 documented as of this encounter
--- OUTSIDE RECORDS SUMMARY | 2023-10-24 11:29 | XMS_ITS | Encounter Summary ---
Author Name Unknown Organization [place] Address [facility] [place] [address] Care Team Providers Care Water Taxi Driver Name Role Phone Xiomara Thomas MD Unavailable [phone] Audra Olmstead Primary Care Provider [phone] Reason for Referral * Diagnostic Imaging Ultrasound (Routine) - Pending Review Specialty Diagnoses / Procedures Referred By Contac t Referred To Contact Radiology. Diagnoses related condition, antepartum History of delivery, currently Procedures MFM US OB Complete 1st Tri Single Delon Lane MD [address] [address] Referral ID Status Reason Start Date Expiration Date V isits Requested Visits Authorized [id number] Pending Review 05/19/2023 05/18/2024 1 1 Reason for Visit * Diagnostic Imaging Ultrasound (Routine) - Pending Review Specialty Diagnoses / Procedures Referred By Contac t Referred To Contact Radiology. Diagnoses related condition, antepartum History of delivery, currently Procedures MFM US OB Complete 1st Tri Delon Ansari MD [address] [place] [address] Referral ID Status Reason Start Date Expiration Date V isits Requested Visits Authorized [id number] Pending Review 05/19/2023 05/18/2024 1 1 Encounter Details Date Type Department Care Team (Latest Contact Info) Description 06/09/2023 9:55 AM CDT - 06/09/2023 11:59 PM CDT Hospital Encounter [facility] [place] [address] [place] [address] Xiomara Thomas MD [address] [place], [place] [id number] related condition, antepartum; History of delivery, currently [...] AM CDT documented as of this encounter Medications at Time of Discharge Medication Sig Dispensed Refills Start Date End Date busPIRone (BUSPAR) 15 MG tablet 0 FLUoxetine (PROZAC) 40 MG capsule Take 40 mg by mouth daily 0 04/06/2023 Fzxrwdit-Wno-Me-FA ( 1 + IRON OR) Take by mouth. 0 documented as of this encounter Plan of Treatment Not on file documented as of this encounter Procedures Procedure Name Priority Date/Time Associated Diagnosis Comments [facility] US OB COMPLETE 1ST TRI SINGLE Routine 06/09/2023 10:26 AM CDT related condition, antepartum History of delivery, currently documented in this encounter Results * [facility] US OB Complete 1st Tri Single (06/09/2023 [...] DHALIWAL Study Date: 06/09/2023 10:05am Pat. NO: [id number] Referring ??MD: NIKOLAI RYAN Site: [facility] Signal Fitter: Adore Hernandez RDMS : 1995 Age: 27 [...] 12/24/2023 U/S ? 06/09/2023 ? based upon [facility] ?11 w + 6 d ?12/23/2023 Assigned [...] Pat. Name:Debora DHALIWAL Date:06/09/2023 10:05am Pat. NO: [id number] MD:DECEMBER SHELBY [facility]Adore[facility] RDMS :1995Age:27 ----- INDICATION ----- History of Premature Rupture [...] referring your patient for MFM consult & ultrasoundassessment. We discussed the results [...] 4. Measurements consistent with established dates. Delon Lane MD [facility] ORDERABL ES documented in this encounter Visit Diagnoses Diagnosis related condition, antepartum History of delivery, currently with history of pre-term labor documented in this encounter Care Teams Water Taxi Driver Relationship Specialty Start Date End Date Audra Olmstead [facility] [address] [place] [address] PCP - General sales support manager 06/09/23 Xiomara Thomas MD [address] [address] [place], [place] [address] Assigned OBGYN Provider 05/22/22 documented as of this encounter
--- OUTSIDE RECORDS SUMMARY | 2023-10-24 11:29 | XMS_ITS | Encounter Summary ---
Author Name Unknown Organization [place] Address [facility] [place] [address] Care Team Providers Care Offset Lithographic Press Operator Name Role Phone Xiomara Thomas MD Unavailable [phone] Mercedes Olmstead Primary Care Provider [phone] Reason for Visit * Reason Onset Date Comments Patient/info Update 05/20/2022 Encounter Details Date Type Department Care Team (Late st Contact Info) Description 05/20/2022 Telephone [facility] [place] [address] [facility] [address] [place] [address] Mena Martínez RN Patient/info Update Social History Tobacco Use Types Packs/Day Years Used Date Smoking Tobacco: Never Assessed Comments Yes Sex and Gender Information Value Date Recorded Sex Assigned at Not on file Gender Identity Not on file Sexual Orientation Not on file COVID-19 Exposure Response Date Recorded In the last 10 days, have yo u been in contact with someone who was confirmed or suspected to have Coronavirus/COVID-19? No / Unsure 05/20/2022 1:16 PM CDT documented as of this encounter Miscellaneous Notes * Telephone Encounter - Mena Martínez RN - 05/20/2022 3:59 PM CDT Called Mercedes to tell her that we spoke with her OB PCP in [place] and asked them to facilitate a referral to [facility] for a second opinion regarding her previable PPROM of twin B. Instructed Mercedes to call her PCP tomorrow afternoon to find out if they were able to submit a referral to [place].Pt verbalized understanding. Mena Martínez RN on 05/20/2022 at 4:04 PM documented in this encounter Plan of Treatment Not on file documented as of this encounter Visit Diagnoses Not on filedocumented in this encounter Care Teams Offset Lithographic Press Operator Relationship Specialty Start Date End Date Mercedes Olmstead [address] [address] PCP - General washer and crusher tender 06/09/23 Xiomara Thomas MD [address] [address] [place] [address] Assigned OBGYN Provider 05/22/22 documented as of this encounter
[2023-10-24 11:35] VITALS: PULSE 117; O2SAT 100
[2023-10-24 11:37] VITALS: BP 105/61; PULSE 125; RESP 16; TEMP 36.7; O2SAT 99
[2023-10-24 12:03] LABS: Appearance Urine Slightly Cloudy (Clear); Bilirubin Urine Negative (Negative); Blood Urine Negative (Negative); Color Urine Yellow (Yellow); Glucose Urine Trace (Negative); Ketones Urine Negative (Negative); Leukocyte Esterase Urine Negative (Negative); Nitrite Urine Negative (Negative); Protein Urine Negative (Negative); Urobilinogen Urine 0.2 (0.2-1.0)
[2023-10-24 12:21] LABS: RBC Urine 0-2 (0-2); WBC Urine 0-2 (0-5)
--- NOTE | 2023-10-24 12:57 | P.OBLDTN_ITS ---
OB - Triage/Final Diagnosis Visit Information Time Seen by Provider: 12:57 Date Seen: 10/24/23 Date of evaluation: 10/24/23 Narrative: Mercedes is a 28 year old 3 para 1011 at 31.2 weeks gestation by LMP (consistent with her ultrasound), who presents with uterine cramping. She reports she's been noting intermittent uterine cramping/ tightening for a couple of days. Overall, she is still very comfortable but given her high risk , she wants to be evaluated to make sure nothing dangerous is happening. Denies any recent illness or injury. She continues to adhere to strict pelvic rest. Admittedly, she and her family are having a hard time. Her spouse has problems with alcohol and she caught him drinking yesterday. She's been more stressed than usual. Active movement. Denies LOF, vaginal bleeding or abnormal vaginal discharge. contractions vs labor ? SVE: Deferred but sterile speculum exam performed. Cervix visually closed, long, and thick. Cerclage still in place. No signs of tension on cervical cerclage. No bleeding noted. No pooling or fluid expressed with valsalva. ? [place] irritable; patient feels tightening only but is overall comfortable. ? PTL labs: GC/CT, UA/UCx, vaginitis panel pending. FFN was negative. ? History of deliveries: With twins at 21 weeks. ? Plan: We reviewed that a fibronectin has a negative predictive value is extremely high (97-99%) for labor within 7 days so it is very reassuring. Additionally, the rest of her clinical picture/assessment does not indicate labor. Infectious labs pending. Will treat as needed. Follow up with routine care. ED and PTL precautions given. Patient is reassured. NST: Baseline 120 beats per minute, moderate variability, multiple 15 x 15 qualifying accelerations, no deceleration. Reactive and reassuring. She is stable and appropriate for discharge from triage with strict follow up precautions. Evaluation Laboratory results: Laboratory Tests 10/24/23 Range/Units 11:55 Urine Color Yellow (Yellow) Urine Appearance Slightly Cloudy A (Clear) Urine pH 7.0 (5.0-8.5) Ur Specific [place] 1.010 (1.000-1.030) Urine Protein Negative (Negative) Urine Glucose (UA) Trace A (Negative) Urine Ketones Negative (Negative) Urine Blood Negative (Negative) Urine Nitrite Negative (Negative) Urine Bilirubin Negative (Negative) Urine Urobilinogen 0.2 (0.2-1.0) Ur Leukocyte Esterase Negative (Negative) Urine RBC 0-2 (0-2) Urine WBC 0-2 (0-5) Ur Squamous Epith Cells None (None-Few) Urine Bacteria None (None) Vital signs: Vital Signs - 24 hr 10/24/23 11:35 10/24/23 11:37 10/24/23 11:37 Temperature 98.1 F Pulse Rate 125 H Respiratory Rate 16 Blood Pressure 105/61 Pulse Oximetry 100 99
[2023-10-24 13:29] VITALS: BP 107/63; PULSE 91; TEMP 37.1
[2023-10-24 13:40] LABS: Fetal Fibronectin* Negative (Negative)
[2023-10-24 14:15] LABS: Bacterial Vaginosis* POSITIVE (No Detected); Candida glab/krus NOT DETECTED (No Detected); Candida species NOT DETECTED (No Detected); Trichomonas vaginalis NOT DETECTED (No Detected)
--- NOTE | 2023-10-24 14:31 | PC.OBNST ---
The provider's electronic signature indicates the NST is reactive/appropriate for gestational age. *Note to provider: If an addendum is required, open the patient's chart and click on the note under the Nurse/Allied Health tab.
[2023-10-24 15:37] LABS: Chlamydia DNA Amplified* Not Detected (No Detected); GC DNA Amplified* Not Detected (No Detected)
== END 2023-10-24 14:20 | disposition home or self-care (01) ==
LOC: OB OUT 11:25 → OB 11:25
PROVIDERS: Visit Provider Obstetrics & Gynecology
DX: O47.03 False labor before 37 completed weeks of gestation, third trimester (principal); Z3A.36 36 weeks gestation of pregnancy; Z11.3 Encounter for screening for infections with a predominantly sexual mode of transmission
CPT/HCPCS: 59025; 81003; 81015; 81513; 84112; 87481; 87491; 87591; 87661; G0463

== ENCOUNTER 2023-11-17 08:57 | Outpatient (CLI) | payer BC, SELFPAY | END 2023-11-17 08:58 | disposition home or self-care (01) | LOC: NFLDREF 11-29 19:34 | PROVIDERS: Visit Provider Obstetrics & Gynecology | DX: O26.899 Other specified pregnancy related conditions, unspecified trimester (principal); R39.15 Urgency of urination | CPT/HCPCS: 82728; 87086 ==

== ENCOUNTER 2023-11-29 10:57 | Day surgery (SDC) | payer BC, SELFPAY ==
[2023-11-29] VITALS (30 sets, daily range): BP systolic 99–121; BP diastolic 55–78; PULSE 80–105; TEMP 36.8; O2SAT 90–100
[2023-11-29] MEDS: LACTATED RINGERS 1000 ML 1,000 ML 125 ML IV (11:09)
--- NOTE | 2023-11-29 11:38 | W.ANESCHARGE ---
Anesthesia Charges Start Date/Time Anesthesia Start Date: 11/29/23 Anesthesia Start Time: 13:37 Stop Date/Time Anesthesia Stop Date: 11/29/23 Anesthesia Stop Time: 14:49
[2023-11-29] MEDS: SILVER NITRATE APPLICATOR 1 EACH STICK..EA. TOPICAL (14:11)
--- NOTE | 2023-11-29 14:48 | P.OBO_ITS ---
OB Outpatient HPI History of Present Illness Date Seen: 11/29/23 History of Present Illness: 28 year old at 36 3/7 weeks gestation by LMP, LUCRETIA 12/24/23, presents for cerclage removal. Patient had a Pastor cerclage placed at [facility] due to history of PPROM. Patient today states to be doing well w/o any specific concerns or complaints. Baby moving naturally: Yes Bleeding: No Contractions: No Leaking fluid: No Discharge: No Heartburn: No Back pain: No Meds Home Medications and Allergies Home Medications Medication Instructions Recorded Confirmed Type docosahexaenoic acid 200 mg 200 mg PO DAILY 10/27/22 11/17/23 History capsule ( DHA) buspirone 15 mg tablet 15 mg PO QDAY 09/08/23 11/17/23 History Allergies Allergy/AdvReac Type Severity Reaction Status Date / Time No Known Allergies Allergy Verified 10/31/23 07:49 [facility] Medical History History of hemorrhage ?Z87.59 - Personal history of other complications of , childbirth and the puerperium (ICD-10) premature rupture of membranes (PPROM) with unknown onset of labor ?O42.919 - premature rupture of membranes, unspecified as to length of time between rupture and onset of labor, unspecified trimester (ICD-10) Lymphadenopathy of head and neck region (~2012) ?R59.0 - Localized enlarged lymph nodes (ICD-10) Dichorionic diamniotic twin gestation (05/23/22) ?O30.049 - Twin , dichorionic/diamniotic, unspecified trimester (ICD-10) Surgical History H/O wisdom tooth extraction (~2011) ?K08.409 - Partial loss of teeth, unspecified cause, unspecified class (ICD- 10) History of placement of ear tubes ?Z96.22 - Myringotomy tube(s) status (ICD-10) Status post delivery (03/26/21) ?Z98.891 - History of uterine scar from previous surgery (ICD-10) Family History Maternal Grandmother Breast cancer Maternal Grandfather Heart disease High blood pressure Paternal Grandfather Alzheimers disease Social History Narrative: Cis-gender, heterosexual woman Relationship status: . 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 Lost a set of twin boys: Kyree Plascencia after PPROM (21 weeks) on 05/23/2022. Tobacco: Lifetime nonsmoker E-cigarettes: No Alcohol: No Illicit/recreational drugs: No Safety concerns at home or work: No Dietary restriction(s): None Exercise: Yes: Walks at least 30 minutes a day 3-4 days per week Smoking Status: Never smoker Little interest or pleasure in doing things: not at all Feeling down, depressed, or hopeless: not at all History History 3 Elective abortions Para 1 Spontaneous abortions Hx # Term Pregnancies 1 Ectopic pregnancies Hx # Pregnancies 1 Multiple births 1 Number of Living Children 1 Past Pregnancies Del. Date GA/Weeks Outcome Route wt Inf Gender Labor Lgth Anesthesia Location Provider Compli 03/26/21 41 live - full term 3.6 kg Male epidural [facility] 05/23/22 20 still Male [place] labor multiple other 05/23/22 20 still Male [place] multiple labor Delivery Date: 03/26/21 Last Updated by: Tricia Encarnacion M.D. arrest of descent inferior extensions of hysterotomy incision 2-layer closure Delivery Date: 05/23/22 Last Updated by: Myrna Chaves ~ DIRECTOR INFORMATICS, DIRECTOR INFORMATICS Baby B premature rupture of membranes Retained placenta, required D&C Delivery Date: 05/23/22 Last Updated by: Myrna Chaves ~ DIRECTOR INFORMATICS, DIRECTOR INFORMATICS Baby A Retained placenta, required D&C OB - H&P: Exam Physical Exam Vital signs: Temp Pulse BP Pulse Ox 98.2 F 81 99/58 L 100 11/29/23 09:36 11/29/23 10:24 11/29/23 10:24 11/29/23 12:23 Narrative: Patient at triage room. NST reactive. No uterine contractions. Patient was placed in lithotomy position and a sterile speculum exam performed. This is difficult in the setting of large multiparous cervix, redundant vaginal weldon. I was able to identify suture knots at 12 o clock. Patient asked to stop since she started to feel very nauseous and felt the need to sit up. I removed speculum and patient sat up. She was pale, but did some deep breathing and felt much better. Agreed to try again. Same procedure performed and I was able to grasp suture knot with ring forceps and gently lifted up, I then utilized a long scissors and cut at the level closest to the cervix trying to avoid cervix. I was unable to release the suture, by palpation the first knot palpates deeply embedded in the cervix. I again had to discontinue attempts at removal, patient she was experiencing significant discomfort and started to feel nauseous again. Sat up and we discussed alternatives for management. Discussed that next step would be removal under anesthesia, so that we could get her more comfortable, retract vaginal weldon better. Informed consent obtained to take her to the OR since she had eaten this morning we had to wait until 1:30pm today. Patient was taken to the OR and IV sedation given. High doses of propofol given and patient still contracted her pelvis and moved her bottom. A sterile speculum placed and cervix was cleansed with Betadine. I attempted placement of different sized speculums, she did not tolerate these. We did get her more comfortable for like 10 minutes, I was unable to grasp the remaining knots at 12 o clock w/o lacerating the cervix and creating some bleeding. I was able to lift suture material from around 5 o clock and I held it with my index finger placed a Timi retractor to protect the bladder and was able to insert a long curved Zamora scissors and cut suture and felt the release of tension. I re inserted speculum and was unable to identify cut ends of suture. I utilized side wall retractor with speculum, different sized speculums but patient kept moving so much. I attempted to grasp the cervix with a ring forceps at around 12 o clock, I was able to palpate the knots and attempts to grasp with pickups created significant bleeding at one point, I proceeded to keep pressure with a ring sponge forceps. Asked for monitoring to be started. Pressure contained bleeding and no bleeding noted vaginally otherwise. heart rate documented to be within normal range. I then removed speculum, cleaned the urethra with Betadine and drained bladder, about 250cc of clear urine obtained. I was able to place speculum again, no significant difference after emptying bladder in visualization, but I was able to identify cervical laceration at 12 o clock that was manageable with application of silver nitrate. Cervix palpated 1cm/long at end of procedure. Decision was made to discontinue attempts to avoid further bleeding. I will plan to monitor her inpatient for close observation of bleeding and heart rate. There was one episode at OR during monitoring this was when patient was waking up, we had trouble documenting heart rate and it seemed that heart rate was low, I was unable to determine a number, palpation of the uterus did not reveal tightening as in a contraction at that moment, vital signs were normal, and no evidence of vaginal bleeding. I asked to confirm with US and I was able to find FHR right away and by observation this looked to be completely normal. I then moved monitor and this documented FHR in the 130s. I monitored baby at OR after this for at least 10 more minutes and FHR remained in the 130s. Patient transferred to OB for continued monitoring. Assessment and Plan Assessment and plan (1) Cervical cerclage suture present: Status: Acute Plan 1. To OB for long NST. Monitor vaginal bleeding, vital signs etc...
--- NOTE | 2023-11-29 15:00 | W.ANESCHARGE ---
Anesthesia Charges Start Date/Time Anesthesia Start Date: 11/29/23 Anesthesia Start Time: 13:37 Stop Date/Time Anesthesia Stop Date: 11/29/23 Anesthesia Stop Time: 14:49
--- NOTE | 2023-11-29 18:09 | PC.OBNST ---
NST Note NST Note Start: 11/29/23 09:10 Freq: ONCE Status: Active Protocol: Document 11/29/23 18:04 ANNA (Rec: 11/29/23 18:09 ANNA [id number]) NST Note 3 Para (# of births) 1 EDC 12/24/23 Gestational Age In Weeks & Days 36 Weeks & 3 Days Patient Presented with Complaint(s) of Other Other Complaints Cerclage removal Reactive Yes Appropriate for Gestational Age Yes KOBI Thomason RN Date 11/29/23 Reactive Yes Appropriate for Gestational Age Yes KOBI Nielsen RNC Date 11/29/23 OB NST charge Yes Complete NST Note via Write Note Yes The provider's electronic signature indicates the NST is reactive/appropriate for gestational age. *Note to provider: If an addendum is required, open the patient's chart and click on the note under the Nurse/Allied Health tab.
--- NOTE | 2023-12-01 17:15 | PC.OBNST ---
NST Note NST Note Start: 11/29/23 09:10 Freq: ONCE Status: Complete Protocol: Document 11/29/23 18:04 ANNA (Rec: 11/29/23 18:09 ANNA [id number]) NST Note 3 Para (# of births) 1 EDC 12/24/23 Gestational Age In Weeks & Days 36 Weeks & 3 Days Patient Presented with Complaint(s) of Other Other Complaints Cerclage removal Reactive Yes Appropriate for Gestational Age Yes KOBI Thomason RN Date 11/29/23 Reactive Yes Appropriate for Gestational Age Yes KOBI Nielsen RNC Date 11/29/23 OB NST charge Yes Complete NST Note via Write Note Yes The provider's electronic signature indicates the NST is reactive/appropriate for gestational age. *Note to provider: If an addendum is required, open the patient's chart and click on the note under the Nurse/Allied Health tab.
== END 2023-11-29 18:00 | disposition home or self-care (01) ==
LOC: OB CLI 12-01 10:47 → OB 12-01 10:47 → OB CLI 12-01 10:47
PROVIDERS: Visit Provider Obstetrics & Gynecology
PROC: 0UVC7ZZ Restriction of Cervix, Via Natural or Artificial Opening (ICD-10-PCS; CPT 57700; principal; 2023-11-29 13:30)
DX: O34.33 Maternal care for cervical incompetence, third trimester (principal); O09.213 Supervision of pregnancy with history of pre-term labor, third trimester; O26.893 Other specified pregnancy related conditions, third trimester; Z67.11 Type A blood, Rh negative; Z3A.36 36 weeks gestation of pregnancy; N99.71 Accidental puncture and laceration of a genitourinary system organ or structure during a genitourinary system procedure
CPT/HCPCS: 59871; 00940; 59025; 85018; 86850; 86900; 86901; G0463; A9270; J2250; J2704; J2765; J3010; J7120

== ENCOUNTER 2023-11-30 07:50 | Outpatient (CLI) | payer BC, SELFPAY ==
[2023-11-30 08:34] VITALS: BP 93/54; PULSE 89
[2023-11-30 08:35] VITALS: BP 106/67; PULSE 110
--- NOTE | 2023-11-30 09:34 | P.OBLDTN_ITS ---
OB - Triage/Final Diagnosis Visit Information Time Seen by Provider: 08:25 Date Seen: 11/30/23 Date of evaluation: 11/30/23 Narrative: The patient is a 28 year old 3 para 1101 at 36 4/7 weeks gestation by LMP, who presents with concerns about bleeding and decreased movement. She had a cerclage stitch snipped yesterday, with retention of the suture material. This morning, when she got up, she had a little bit of brownish/dark red vaginal discharge on a pad. She has had some intermittent menstrual-like cramping, mild. Denies contractions or bright red vaginal bleeding. Denies leakage of fluid or dysuria. movement was subjectively less this morning. On examination, fundus is nontender and soft. Patient is jas pad was inspected, and a dime-sized spot of brown discharge noted to be present. Nonstress test was performed which is reactive and reassuring. Patient was discharged to home with precautions to return for decreased movement, increased pain, bright red vaginal bleeding, or signs or symptoms of labor. Evaluation Vital signs: Vital Signs - 24 hr 11/30/23 08:34 11/30/23 08:35 Pulse Rate 89 110 H Blood Pressure 93/54 L 106/67 Fetus (Single) Heart Rate Baseline: 150 Group Home Variability: Moderate (6-25) Monitor Accelerations: Present Monitor Decelerations: None Final Diagnosis (1) Cervical cerclage suture present: Status: Acute (2) Non-reactive NST (non-stress test): Status: Acute
--- NOTE | 2023-11-30 10:16 | PC.OBNST ---
NST Note NST Note Start: 11/30/23 08:03 Freq: ONCE Status: Active Protocol: Document 11/30/23 08:40 KEN (Rec: 11/30/23 10:15 KEN [id number]) NST Note 3 Para (# of births) 2 EDC 12/24/23 Gestational Age In Weeks & Days 36 Weeks & 4 Days Patient Presented with Complaint(s) of Vaginal bleeding Other Complaints C/O brownish discharge after cerclage removal yesterday Reactive Yes Appropriate for Gestational Age Yes RN Debora Cruz RN Date 11/30/23 Reactive Yes Appropriate for Gestational Age Yes RN Estee Toure RN Date 11/30/23 OB NST charge Yes Complete NST Note via Write Note Yes The provider's electronic signature indicates the NST is reactive/appropriate for gestational age. *Note to provider: If an addendum is required, open the patient's chart and click on the note under the Nurse/Allied Health tab.
== END 2023-11-30 08:45 | disposition home or self-care (01) ==
LOC: OB OUT 07:50 → OB 07:51
PROVIDERS: Visit Provider Obstetrics & Gynecology
DX: O34.33 Maternal care for cervical incompetence, third trimester (principal); Z3A.36 36 weeks gestation of pregnancy
CPT/HCPCS: 59025; G0463

== ENCOUNTER 2023-12-15 05:32 | Inpatient (IN) | payer BC, SELFPAY ==
[2023-12-15] VITALS (31 sets, daily range): BP systolic 105–130; BP diastolic 57–86; PULSE 77–108; RESP 16–18; TEMP 36.3–36.8; O2SAT 97–100; BMI 34.1
[2023-12-15] MEDS: LACTATED RINGERS 1000 ML 1,000 ML 900 ML IV (06:12)
[2023-12-15 06:26] LABS: Basophils Absolute Auto 0.02 K/uL (0.00-0.30); Basophils Percent Auto 0.2 % (0.0-3.0); Eosinophils Absolute Auto 0.19 K/uL (0.00-0.50); Eosinophils Percent Auto 2.1 % (0.0-7.0); Hematocrit 32.6 % (33.0-51.0); Hemoglobin* 10.6 gm/dL (12.0-16.0); Immature Granulocytes Abs Auto 0.01 K/uL (0.00-0.30); Immature Granulocytes Pct Auto 0.1 %; Lymphocytes Percent Auto 19.6 % (20-44); Mean Corpuscular HGB Conc 33 gm/dL (32-36); Mean Corpuscular Hemoglobin 28 pg (26-34); Mean Corpuscular Volume 87 fL (80-100); Monocytes Percent Auto 5.5 % (0.0-11.0); Neutrophils Percent Auto 72.5 % (42.0-72.0); Platelet Count* 182 K/uL (140-440); Red Blood Count 3.74 m/uL (4.00-5.20); White Blood Count* 8.93 K/uL (4.50-11.00)
[2023-12-15 06:31] LABS: Slide Review Reflex No
[2023-12-15] MEDS: CEFAZOLIN 2 GM INJ IVP (07:29)
[2023-12-15] MEDS: KETOROLAC 30 MG/ML inj IVP ×3 (08:10→20:15)
--- NOTE | 2023-12-15 08:51 | P.PCN_ITS ---
Procedure Note Time Seen by Provider: 08:51 Date Seen: 12/15/23 Date of procedure: 12/15/23 Will [facility] bill your pro fee for this procedure?: Yes Procedure: Preoperative diagnosis: 28-year-old 3 para 1101 at 38 and 0/7 weeks admitted for a scheduled repeat low transverse section and cerclage removal Postoperative diagnosis: Same Procedure: Repeat low-transverse section. Cerclage removal. Anesthesia: Spinal, TAPS block Surgeon: Mercedes Junior MD Jacquard Loom Carpet Weaver: MIHAELA Grant Quantitative blood loss: 912 mL IVF: 1600 mL UOP: 100 mL Drain(s): Lew to gravity. Specimen: None Findings: A live female was delivered from the direct OA position at 7:45 a.m. Apgars were 7 at 1 min and [] at 5 min respectively. weight: 7 lb 15 oz. Nuchal cord(s): No. The placenta was delivered spontaneously and complete at 7:47 a.m. Amniotic fluid: Clear. Normal uterus, fallopian tubes and ovaries were noted. Other findings: Approximately 5 cm piece of suture noted protruding from the right side with the patient's cervix which was the remaining suture from the cerclage. This was removed. Procedure: Mercedes was taken to the OR where spinal anesthetic was found be adequate. A Lew catheter was placed. The patient was then placed in the dorsal supine position with a leftward tilt. She was then prepped and draped in a normal sterile manner. A Pfannenstiel skin incision was made and carried through sharply to the underlying layer of fascia. Fascia was incised in the midline and this incision carried laterally with Zamora scissors. The superior aspect of fascial incision was grasped with Lily clamps, tented up, and the rectus muscles dissected off with a combination of blunt and sharp dissection. The inferior aspect of the fascial incision was not dissected off of the rectus muscles. The rectus muscles were in the midline. The peritoneum was entered bluntly. This opening was extended bluntly. An Ari-O self-retaining retractor was placed. A bladder flap was not created. Uterus was incised in a low transverse manner in the midline. This incision carried laterally with blunt pressure on the inferior and superior aspects of the uterine incision. The amniotic sac was ruptured. The infant's [breech, head and body] were delivered atraumatically. The was shown to the patient and her support person. The umbilical was clamped and cut immediately/after a 30-60 second delay. The infant was then handed to waiting nursing staff. The placenta was delivered spontaneously. The uterus was cleared of clots and debris. The uterine incision was re-approximated with the uterus in vivo. The 1st layer using 0-Vicryl in a running, locked manner. The 2nd layer using 0- Monocryl in a running, vertical, imbricating layer. Additional sutures needed for hemostasis: Yes: 2 sutures of 2 O chromic in a figure of 8 manner. Tori was applied to the uterine incision]. Excellent hemostasis was confirmed. The Ari retractor was removed. The rectus muscles were not reapproximated. The rectus muscles were then closely inspected to verify hemostasis. Hemostasis was obtained with bipolar cautery. The fascia was then reapproximated using 0-Maxon loop in a running manner. The subcutaneous tissue was then irrigated with saline and hemostasis obtained with bipolar cautery. The subcutaneous tissue was reapproximated using 3-0 plain gut in a running manner. The skin was reapproximated using 4-0 Monocryl in a running subcuticular manner. Exophin skin adhesive and a Methaplex dressing were applied. The TAPS block was placed. Attention was turned performing the cerclage removal. Patient was placed in the dorsal lithotomy position. A bivalve speculum was placed in the vaginal canal. The suture could not be visualized so the speculum was removed and a bimanual exam performed. The suture was noted to be protruding from the right side of the cervix from approximately the 11 o'clock position. This suture was grasped with a ring forceps and removed with minimal pressure. The patient tolerated this procedures well. Sponge, lap and instrument counts were correct x2 active to the procedure. Patient was taken to the recovery area in stable condition. The patient received 2 g of IV Ancef prior to skin incision.
--- NOTE | 2023-12-15 08:55 | W.ANESCHARGE ---
Anesthesia Charges Start Date/Time Anesthesia Start Date: 12/15/23 Anesthesia Start Time: 07:18 Stop Date/Time Anesthesia Stop Date: 12/15/23 Anesthesia Stop Time: 08:54
--- NOTE | 2023-12-15 10:08 | W.PM.NB ---
Nerve Block Nerve Block Time Seen by Provider: 08:31 Date Seen: 12/15/23 Type of block requested by surgeon for post-operative analgesia: TAP Side: bilateral Time out performed: Yes Verification of patient name: Yes Verification of date of : Yes Site marking: site marked Name of person performing procedure: Tarun Continuous monitoring Was continuous monitoring of O2 sat, B/P, quality assurance monitor final, recorded every 15 minutes?: Yes Procedure Checklist: sterile prep, needles and gloves Ultrasound guided. Images saved: Yes Medications given in 5ml increments after negative aspiration: Marcaine %: 0.25 mL: 30 Needle gauge: 20 and Exparel mL: 10 Patient tolerated procedure well: Yes Additional comments: Needle noted between internal oblique and transversus abdominus. Local spread visualized Block Charges Block Charge (with Pro Fee): TAP Bilateral Use of Ultrasound Machine for Block: Yes- US Guidance/pain block
--- NOTE | 2023-12-15 10:08 | W.ANESCHARGE ---
Anesthesia Charges Start Date/Time Anesthesia Start Date: 12/15/23 Anesthesia Start Time: 07:18 Stop Date/Time Anesthesia Stop Date: 12/15/23 Anesthesia Stop Time: 08:54
[2023-12-15] MEDS: LACTATED RINGERS 1000 ML 1,000 ML 125 ML IV (12:09)
[2023-12-15] MEDS: ACETAMINOPHEN 500 MG TABLET 1000 MG PO ×2 (12:26→18:30)
[2023-12-15] MEDS: DOCUSATE SODIUM 100 MG CAPSULE PO (18:30)
[2023-12-15] MEDS: BUSPIRONE 10 MG TABLET 15 MG PO (20:58)
[2023-12-16] VITALS (12 sets, daily range): BP systolic 104–114; BP diastolic 67–75; PULSE 76–98; RESP 16–18; TEMP 36.4–36.7; O2SAT 96–98
[2023-12-16] MEDS: KETOROLAC 30 MG/ML inj IVP ×3 (02:21→15:24)
[2023-12-16] MEDS: ACETAMINOPHEN 500 MG TABLET 1000 MG PO ×3 (04:58→19:50)
[2023-12-16 06:51] LABS: Hemoglobin* 9.3 gm/dL (12.0-16.0)
--- NOTE | 2023-12-16 08:43 | P.OBPN_ITS ---
OB - PN:Subj Subjective Date Seen: 12/16/23 Patient comments OB post-: no complaints, pain well controlled, tolerating diet and flatus present [place] status: and doing well [place] feeding status: exclusively Narrative: The patient feels well.? The pain is well controlled with current medications.? She has no new complaints.? Urinary output is adequate and she is voiding w ithout difficulty.? Has a good appetite, is tolerating a general diet, is passing flatus, and has not had a bowel movement.? Has scant amount of rubra lochia.? She is ambulating well. Hgb 9.3 but denies feeling light headed, dizzy or fatigued. OB - PN: Obj Exam Physical Exam: Vital signs: Temp Pulse Resp BP Pulse Ox O2 Del Method 97.7 F 76 16 114/73 97 Room Air 12/16/23 04:32 12/16/23 04:32 12/16/23 06:10 12/16/23 04:32 12/16/23 04:32 12/16/23 04:32 Narrative: GENERAL APPEARANCE:? normal affect, alert, no distress? MOOD:? appropriate? CHEST:? clear to auscultation and percussion? HEART:? regular rate and rhythm? ABDOMEN:? soft, non-tender the uterine fundus is U/2 and is appropriate for the stage of recovery.?Dressing clean, dry and intact. EXTREMITIES:? normal and no edema? Urinary Catheter Management: Urethral: Cath placed during this visit: yes Urethral indwelling: No Reason for continuing: other continuation reason Insertion date: 12/15/23 Insertion time: 07:20 OB - PN: Obj Data Labs Labs: Laboratory Results - last 24 hr 12/16/23 06:28 Hgb 9.3 L OB - PN: A/P Delivery Assessment and Plan (1) care following delivery: Status: Acute (2) Lactating mother: Status: Acute Plan 1. Routine cares.? 2. Anticipate discharge tomorrow or the following day per patient preference.? Plan day: 1 Plan: routine care
[2023-12-16] MEDS: BUSPIRONE 10 MG TABLET 15 MG PO (09:16)
[2023-12-16] MEDS: FLUOXETINE HCL 10 MG CAPSULE 40 MG PO (09:18)
[2023-12-16] MEDS: DOCUSATE SODIUM 100 MG CAPSULE PO (09:21)
[2023-12-16] MEDS: FERROUS SULFATE 325 MG TABLET PO (14:34)
[2023-12-16] MEDS: IBUPROFEN 600 MG TABLET PO (21:19)
[2023-12-17] MEDS: ACETAMINOPHEN 500 MG TABLET 1000 MG PO ×3 (01:48→14:29)
[2023-12-17 04:52] LABS: Rapid Plasma Reagin (RPR) Non Reactive (Non Reactive)
[2023-12-17 05:26] VITALS: BP 114/73; PULSE 77; RESP 15; TEMP 36.9; O2SAT 97
[2023-12-17] MEDS: IBUPROFEN 600 MG TABLET PO ×2 (06:11→12:04)
[2023-12-17] MEDS: DOCUSATE SODIUM 100 MG CAPSULE PO (07:29)
[2023-12-17 08:32] VITALS: BP 105/73; PULSE 74; RESP 14; TEMP 36.9; O2SAT 97
--- NOTE | 2023-12-17 11:31 | P.DS_ITS ---
DS: Providers Provider Time Seen by Provider: 10:00 Date Seen: 12/17/23 Date of admission: 12/15/23 05:32 Primary care physician: Not a Local Provider Admitting Clinician: Mercedes Junior MD Attending Physician on discharge: Mercedes Junior MD Date of Discharge: 12/17/23 DS: Diagnosis Discharge Diagnosis (1) Lactating mother: Status: Acute (2) care following delivery: Status: Acute (3) Anxiety and depression: Status: Acute Exam Narrative: Exam Narrative: Physical exam: General: No acute distress. Breast-feeding baby. Psych: Alert and oriented x4, full affect HEENT: Normocephalic, atraumatic Heart: Regular rate and rhythm, no murmur rub or gallop Lungs: Clear to auscultation bilaterally Abdomen: Normoactive bowel sounds, soft, no tenderness, rebound, or guarding Incision: Appropriately tender to palpation. Clean, dry, and intact. No erythema, induration, or abnormal discharge/breakdown Skin: No lesions or rashes Breasts: no nodules or masses, no nipple discharge, no axillary adenopathy Lower extremities: No edema or erythema Pelvic exam: Scant bleeding on pad. Const: Vital Signs, click to edit/add: Vital Signs - 24 hr 12/16/23 12:45 12/16/23 20:20 12/17/23 05:26 Temperature 98.1 F 98.1 F 98.4 F Pulse Rate [Pulse Oximeter] 98 84 77 Respiratory Rate 18 16 15 Blood Pressure [Ri ght Arm] 104/67 112/75 114/73 Pulse Oximetry 96 98 97 Oxygen Delivery Me thod Room Air Room Air Room Air 12/17/23 08:32 Temperature 98.5 F Pulse Rate [Pulse Oximeter] 74 Respiratory Rate 14 Blood Pressure [Ri ght Arm] 105/73 Pulse Oximetry 97 Oxygen Delivery Me thod Room Air OB - DS: Summary Hospital Course Hospital Course: The patient is a 28 year old G 3 P 2011 at 38.5 weeks gestation that was admitted to the Center on 12/15/23 for planned repeat section and cerclage removal. She had an uncomplicated delivery and cerclage removal. She delivered a viable . She is breast feeding. the patient has done well. Time spent discussing smoking cessation with patient: 3 to 10 minutes Peripartum Data Procedures: Procedures Operation Date: 12/15/23 07:15 Actual Procedure Side Surgeon p Repeat Section Not Applicable Mercedes Junior MD s Cervical Cerclage Removal Not Applicable Mercedes Junior MD [place] Infant Gender: Female Time Spent with Patient Time attestation: Total time spent providing and/or coordinating discharge services: Discharge Plan Discharge Disposition: Home, Self-Care Date of Admission: 12/15/23 05:32 Attending Provider on Discharge: Lana Kim Primary Care Provider: Provider,Not a Local Condition: Stable Anticipated Discharge Date/Time: 12/17/23 11:21 Discharge Medications: New acetaminophen 500 mg Tablet 1,000 mg PO Q6H PRN (Reason: Pain) 30 Days Qty: 60 0RF ferrous sulfate 325 mg (65 mg iron) Tablet 325 mg PO Q48H 45 Days Qty: 23 0RF docusate sodium 100 mg Capsule 100 mg PO BID PRN30 Days Qty: 30 0RF ibuprofen 600 mg Tablet 600 mg PO Q6H PRN (Reason: Pain) 30 Days Qty: 60 0RF Lanolin (HPA) 100 % Cream 1 applic topical Q1H PRN60 Days Qty: 7 3RF simethicone 80 mg Tablet,Chewable 80 - 160 mg PO Q4H PRN (Reason: Gas) 30 Days Qty: 60 0RF oxycodone 5 mg Tablet 5 mg PO Q6H PRN (Reason: Pain) 14 Days Qty: 20 0RF Continued DHA 200 mg capsule 200 mg PO DAILY fluoxetine 40 mg capsule 40 mg PO DAILY Qty: 90 2RF buspirone 15 mg tablet 15 mg PO BID Qty: 60 1RF Discharge Orders: Discharge Order (Routine); Ordered 12/17/23 Ordered By: Lana Kim Patient Education: OB /Breast Feeding Additional Instructions: POSTOPERATIVE INSTRUCTIONS ACTIVITY No heavy lifting/pushing/pulling for 4-6 weeks. Do not lift anything more than about 10-15 lbs (such as laundry, groceries, children, pets), vacuum, push heavy doors or grocery carts, etc. You may climb stairs as tolerated. Do not put anything in the vagina for 6 weeks after surgery unless otherwise instructed by your doctor (including tampons, douching, sexual intercourse, etc). No driving for about 2 weeks after surgery, while you are taking narcotic pain medication, or until you feel that you are ready. Practice checking your blind spot and stepping hard on the brake. Avoid sitting or lying in bed for more than 2 hours at a time while you are awake to reduce your risk of blood clots. You may return to work when directed by your physician. Please contact your doctor if you need any return to work letters or medical leave paperwork to be completed. WOUND CARE You will have one large incision on your abdomen. There will be dissolvable stitches under your skin that do not need to be removed. You will also have steri-strips (paper tape) on the incisions and these may be removed like a Band- Aid when they curl up at the edges. Shower daily after surgery. Clean your incision with mild antibacterial soap and water. Pat your incision dry with a clean towel. No tub baths until wound is completely healed. Wash your hands frequently, especially before touching your incision, changing any dressings, after using the restroom, and before eating. PAIN MANAGEMENT Take your oral pain medication as needed. You should be taking Ibuprofen 600mg every 6 hours with 1 gram of Tylenol every 6 hours. You can take these together every six hours or alternate them every 3 hours. You should then take the oxycodone as needed if you have breakthrough pain on top of the Tylenol and Ibuprofen. Some pain medications can cause constipation so you should take a stool softener (i.e. colace) while you are on these medications. You may also take milk of magnesia or Miralax for constipation. WHAT TO EXPECT AT HOME Recovery from surgery is generally 4-6 weeks, but sometimes longer for more strenuous activity. It is normal to be very tired during this time. It is normal to have some drainage or a small amount of vaginal bleeding after surgery which may last up to 6 weeks. You will most likely experience gas pain, abdominal swelling, or shoulder pain for 24-72 hours after surgery. A warm shower, heating pad, and/or walking may help. WHEN TO CALL YOUR DOCTOR : Fever (>100.4?F or 38.0?C) or chills. Incision problems such as redness, warmth, swelling, or foul smelling drainage. Severe nausea or persistent vomiting. Bright red vaginal bleeding (soaking >1 pad/hour) or foul smelling vaginal drainage. Severe pain not relieved with pain medication. Pain and swelling in your legs, especially if it is only on one side and not the other. Pain with urination, cloudy urine, or foul smelling urine. Or if you have any other problems or questions. CALL 911 OR GO TO THE EMERGENCY ROOM IF YOU HAVE: Any shortness of breath, difficulty breathing, or chest pain. Follow Up Appointments: Provider,Not a Local [Primary Care Provider] - Forms: [employer] Info Instructions
== END 2023-12-17 15:00 | disposition home or self-care (01) | DRG 540 ==
PROVIDERS: Admitting Provider Obstetrics & Gynecology; Visit Provider Obstetrics & Gynecology
PROC: 10D00Z1 Extraction of Products of Conception, Low, Open Approach (ICD-10-PCS; CPT 59514; principal; 2023-12-15 07:15)
PROC: 0UVC7ZZ Restriction of Cervix, Via Natural or Artificial Opening (ICD-10-PCS; CPT 57700; 2023-12-15 07:15)
DX: O34.211 Maternal care for low transverse scar from previous cesarean delivery (principal); O99.344 Other mental disorders complicating childbirth; F41.9 Anxiety disorder, unspecified; F32.A Depression, unspecified; O26.893 Other specified pregnancy related conditions, third trimester; Z67.41 Type O blood, Rh negative; Z87.59 Personal history of other complications of pregnancy, childbirth and the puerperium; O99.013 Anemia complicating pregnancy, third trimester; D64.9 Anemia, unspecified; O99.02 Anemia complicating childbirth; G89.18 Other acute postprocedural pain; Z3A.38 38 weeks gestation of pregnancy; Z37.0 Single live birth
CPT/HCPCS: 01961; 36415; 64488; 76942; 85018; 85025; 86592; 86850; 86900; 86901; A9270; C9290; J0665; J0690; J1100; J1885; J2210; J2274; J2371; J2405; J2590; J2765; J7120

== ENCOUNTER 2023-12-21 08:32 | Outpatient (CLI) | payer BC, SELFPAY ==
--- NOTE | 2023-12-21 17:00 | P.LACCB_ITS ---
Consult Note - Mom Date of Visit Date of visit: 12/21/23 sap business intelligence consultant: Mallorie Gu Visit Code: Visit Patient's Information Phone number: [phone] : 3 Para: 2 Allergies No Known Allergies Allergy (Verified 12/30/23 09:14) Mother's Medical History: Medical History (Updated 12/25/23 @ 00:00 by Background Daemon) History of hemorrhage ?Z87.59 - Personal history of other complications of , childbirth and the puerperium (ICD-10) premature rupture of membranes (PPROM) with unknown onset of labor ?O42.919 - premature rupture of membranes, unspecified as to length of time between rupture and onset of labor, unspecified trimester (ICD-10) Lymphadenopathy of head and neck region (~2012) ?R59.0 - Localized enlarged lymph nodes (ICD-10) Dichorionic diamniotic twin gestation (05/23/22) ?O30.049 - Twin , dichorionic/diamniotic, unspecified trimester (ICD-10) Type of Contraception: ocp's Delivery Information Delivery type: Repeat Section Weeks Gestation: 39.5 Gestational Age: AGA Weight: 3.59 kg Discharge Weight: 3.314 kg Baby's Information Baby's Age at Visit: 6 days Baby's Provider or Clinic: Dr. Dozier Jaundice: Yes (to abdomen) Reason for Consult Reason for Consult: slow weight gain, difficulty latching on the left Past Experience Past Experience: Yes (had difficulty nursing older child, pumped and gave EBM for several months) Current Frequency of Day Feedings: every 2 - 3 hours around the clock Both Breasts: Yes Suck: aggressive but falls asleep easily Latch: fairly wide Length of Time: nursing sessions can last up to 60 minutes Pumping Pumping: No (mom is collecting her milk on the side baby isn't nursing on ) Quantity Pumped: collects up to 2 oz total each time Supplementing EMB Supplement: Yes (with 30 - 40 ml after every nursing session) Formula Supplement: No Baby Elimination Number of Wet Diapers a Day: 5 - 724 hours Number of BM a Day: 5 - 24 hours, transitioning from green to yellow and seedy Breast/Nipple Condition Breast Information: WNL Engorgement: No Maternal Nipple Condition - Left: Common Nipple and Cracking/ Fissures Maternal Nipple Condition - Right: Common Nipple Sore Nipples: Yes (left) Interventions for Sore Nipples: Other (nipple butter) Onsite Pre-Feed weight: 3.23 kg Post-Feed weight: 3.272 kg Milk Transferred (mL): 42 Assessments/Interventions Assessments/Interventions: Met with mom and this now 6 day old ex- term AGA baby for consult. Baby has been slow to gain weight and when she was seen in the Center on 12/17 she was 13% below BW. POC began supplementing her after nursing (with finger feeding) and when she was seen for her NB visit on 12/18 she was 11% below BW. Mom has continued to nurse baby every 2 - 3 hours, then dad supplements by finger feeding 30 - 40 ml EBM. Mom reports baby nurses well on her right side, but has trouble staying latched on the left and her left nipple is damaged and tender. Mom isn't pumping, but collects milk while baby nurses and now gets 1 - 2 oz total each time. Breasts WNL- symmetrical with rounded lower quadrants, intramammary distance < 1.5 inches. Nipples are everted and don't flatten or retract on compression. No damage noted on the right, but the left has a 2 - 3 mm fissure along the top of the nipple (Stage II). Baby has gained 20 grams/day since her NB visit on 12/18 and is now 10% below BW at 6 DOL. She's jaundiced to her abdomen. POC deny any caput/cephalohematoma at delivery and state she has equal ROM when turning her head and moving her extremities. Her palate and upper frenulum are WNL. She has a fairly strong suck on a finger and her tongue does come over the gumline consistently. The tongue also has good lateral movement. The lower frenulum wasn't visualized, posterior? Mom latched baby to the left side and it appeared fairly wide, but baby came off after a few suckles. When mom was instructed to exaggerate pointing her nipple to baby's nose and bring her on a little more aggressively, the latch was deeper and more comfortable, but after a few minutes baby slipped off. B/C of mom's nipple damage and her report of baby struggling on this side, a nipple shield was introduced and baby was able to latch on and maintain it after only a few attempts. Mom was comfortable and reported a pulling sensation. Baby still needed some stimulation to suckle, but she stayed on the breast for 10 - 15 minutes. Milk was in the shield when she came off. Mom then offered the right side while the TSB was drawn. Baby nursed about another 10 minutes and when weighed had transferred 42 ml. After about 10 minutes she started to fuss again so dad was shown how to pace feed and offered baby 30 ml EBM. Mom was measured and a flange size was suggested (mom has a new Medela pump). TSB = 16.1 Plan: 1. Mom to continue nursing ALD or at least every three hours for now. Offer both sides at each session and use the nipple shield for now on the left side. POC do a good job of keeping her awake and active at at the breast. OK to keep the nursing session to no more than 30 - 40 minutes. Reviewed the importance of seeing milk in the shield after nursing. 2. Continue to supplement with EBM prn, but to make sure she's supplemented at least 4 times/24 hours. 3. Mom can continue to use her collectors but suggested she pump for 10 - 15 minutes after any feeding where there's no evidence of milk transfer in the shield. Also suggested she use her coin machine collector or pump to comfort if needed after a nursing session. 4. Reviewed nipple care with mom and bottle given so she can make a saline solution. 5. Baby will f/u with PCP for a two week WCC on 12/30/23 and I will f/u by phone on 01/01 to see how things are going and talk about weaning from the shield. Meds Home Medications and Allergies Home Medications Medication Instructions Recorded Confirmed Type docosahexaenoic acid 200 mg 200 mg PO DAILY 10/27/22 12/30/23 History capsule ( DHA) Allergies Allergy/AdvReac Type Severity Reaction Status Date / Time No Known Allergies Allergy Verified 12/30/23 09:14
== END 2023-12-21 08:33 | disposition home or self-care (01) ==
LOC: OB LAC 08:33
PROVIDERS: Visit Provider Obstetrics & Gynecology
DX: Z39.1 Encounter for care and examination of lactating mother (principal)
CPT/HCPCS: G0463

== ENCOUNTER 2024-12-31 13:43 | Outpatient (CLI) | payer BC, SELFPAY ==
--- NOTE | 2024-12-31 14:00 | CRLHL7_ITS ---
For Patients: As a result of the Century Cures Act, medical imaging exams and procedure reports are released immediately into your electronic medical record. You may view this report before your referring provider. If you have questions, please contact your health care provider. OB ULTRASOUND LESS THAN 14 WEEKS, 12/31/2024 CLINICAL HISTORY: Dating and viability. COMPARISON: None. TECHNIQUE: Real time solorio scale imaging of the fetus was performed transvaginal. FINDINGS: Imaging: Transvaginal. LMP: 10/27/2024. LUCRETIA by LMP: 08/03/2025. GA: 9 weeks 2 days. CRL: 2.4 cm, 9 weeks 1 day. LUCRETIA: 08/04/2025. FHR: 173 bpm. GEST SAC: 4.7 cm, appears within normal limits. YOLK SAC: 4.7 mm, appears within normal limits. RIGHT OVARY: 3.3 x 1.1 x 1.7 cm, within normal limits. LEFT OVARY: 3.3 x 1.8 x 2.1 cm, CL. Within normal limits. IMPRESSION: 1. Single living intrauterine with sonographic gestational age measuring 9 weeks 1 day and sonographic due date 08/04/2025. 2. Subchorionic hemorrhage measures 4 x 12 x 16 mm. 3. Possible mild abdominal wall edema. Follow-up in two weeks recommended. Nba Siu M.D. Diagnostic Radiologist [email or web address] Transcribed: 3:09 pm DW/Dictated by: Nba Siu MD @ 12/31/2024 2:57:00 PM (Electronically Signed)
== END 2024-12-31 13:44 | disposition home or self-care (01) ==
LOC: US 13:43
PROVIDERS: Visit Provider Obstetrics & Gynecology
DX: Z34.91 Encounter for supervision of normal pregnancy, unspecified, first trimester (principal); O20.9 Hemorrhage in early pregnancy, unspecified; Z3A.09 9 weeks gestation of pregnancy
CPT/HCPCS: 76817

== ENCOUNTER 2024-12-31 15:20 | Outpatient (CLI) | payer BC, SELFPAY ==
[2024-12-31 20:24] LABS: Chlamydia DNA Amplified* NOT DETECTED (No Detected); GC DNA Amplified* NOT DETECTED (No Detected)
== END 2024-12-31 15:21 | disposition home or self-care (01) ==
PROVIDERS: Visit Provider Obstetrics & Gynecology
DX: Z34.91 Encounter for supervision of normal pregnancy, unspecified, first trimester (principal); Z3A.09 9 weeks gestation of pregnancy
CPT/HCPCS: 83020; 83021; 85660; 86592; 86703; 86706; 86762; 86787; 86803; 86850; 86900; 86901; 87086; 87340; 87491; 87591

== ENCOUNTER 2025-05-13 10:36 | Outpatient (CLI) | payer BC, SELFPAY | END 2025-05-13 10:37 | disposition home or self-care (01) | LOC: NFLDREF 10:37 | PROVIDERS: Visit Provider Obstetrics & Gynecology | DX: Z34.83 Encounter for supervision of other normal pregnancy, third trimester (principal); Z67.41 Type O blood, Rh negative | CPT/HCPCS: 86592; 86850; 86870; 86880; 86900; 86901; J2791 ==

== ENCOUNTER 2025-07-11 09:57 | Outpatient (CLI) | payer BC, SELFPAY ==
--- NOTE | 2025-07-11 10:15 | CRLHL7_ITS ---
For Patients: As a result of the Century Cures Act, medical imaging exams and procedure reports are released immediately into your electronic medical record. You may view this report before your referring provider. If you have questions, please contact your health care provider. OB ULTRASOUND INDICATION: Growth, measuring large for dates. LUCRETIA by LMP: 08/03/2025. GA: 36 w, 5 d. Single. TECHNIQUE: Real time solorio scale imaging of the fetus was performed. Transabdominal imaging performed. CERVIX: Not visualized. POSITIONING: Vertex. AMNIOTIC FLUID: 6.9 cm SDP (N: greater than 2 x 1 cm). PLACENTA: Technique: Transabdominal. PLACENTA POSITION: Anterior. DOPPLER: heart rate: 154 bpm. BIOMETRY: BPD: 9.17 cm. 37 w, 2 d, 76.4 percent. HC: 32.9 cm. 37 w, 3 d, 39.6 percent. AC: 33.3 cm. 37 w, 1 d, 74.7 percent. FL: 7.06 cm. 36 w, 1 d, 33.9 percent. FL/AC ratio: 21.23 percent. HC/AC ratio: 0.99. EFW: 3079 g. Weight: 6 lbs, 13 oz. age by this US: 37 w, 0 d. LUCRETIA by this US: 08/01/2025. Percentile by LUCRETIA: 61.6 percent. IMPRESSION: Single live intrauterine gestation at 37 weeks 0 days. LUCRETIA of 08/01/2025. Estimated weight is 3079 grams which lies at the 62nd percentile. Abdominal circumference is at the 75th percentile. Jessica Rivera M.D. Diagnostic/Breast Radiologist [email or web address] RACHELE/Dictated by: Jessica Rivera MD @ 07/14/2025 1:54:00 PM (Electronically Signed)
== END 2025-07-11 09:58 | disposition home or self-care (01) ==
LOC: US 09:58
PROVIDERS: Visit Provider Advanced Practice Midwife
DX: O36.60X0 Maternal care for excessive fetal growth, unspecified trimester, not applicable or unspecified (principal); Z3A.36 36 weeks gestation of pregnancy
CPT/HCPCS: 76816; 87081; 87653

== ENCOUNTER 2025-07-23 05:46 | Inpatient (IN) | payer BC, SELFPAY ==
[2025-07-23] VITALS (25 sets, daily range): BP systolic 112–135; BP diastolic 70–91; PULSE 74–102; RESP 16–18; TEMP 36.2–36.9; O2SAT 97–100; BMI 34.2
[2025-07-23 06:39] LABS: Hemoglobin* 11.5 gm/dL (12.0-16.0)
--- NOTE | 2025-07-23 07:09 | W.PM.H&PU ---
History & Physical Update History & Physical Update H&P Reviewed and patient assessed: No changes noted H&P Updates: Mercedes is a 30yo seen at 38w3d GA in pre-op prior to planned repeat C/S. is complicated by history of x2, history of PPROM at 19 weeks of twins s/p Pastor cerclage placement on 01/31/25, abnormal NIPT (T20, T3) with normal amniocentesis on 02/28 and normal level 2 US with MFM. No interval change to her health history or questions today. We again reviewed the risks, benefits and alternatives to the planned procedure. Written consent was previously signed on 07/11. Given her history of PPH x2, we have 2u pRBCs cross matched. Admission Hgb 11.5. She is a candidate for any uterotonic medications, counseled on surgical methods that could be required to control bleeding including hysterectomy (although unlikely). Post-procedure restrictions and expectations reviewed. Pre-op labs reviewed and are within normal limits. Ancef as perioperative antibiotic.
--- NOTE | 2025-07-23 07:15 | PM.OBPRCCS ---
Procedure Date of procedure: 07/23/25 Pre-op diagnosis: History of C/S x2, history of PPHx2, Pastor cerclage s/p removal Procedure Done: Global Will [facility] bill your pro fee for this procedure?: Yes Blood Loss Measurement Type: QBL (550) Bakri Used: No IV fluids (mL): 1,300 Urine Output (mL): 150 Urine Output Comment: Clear, yellow Surgeon: Radha Macario MD Quality Control Tech Raw Materials: Teresa Bryson Anesthesia Type: Spinal Findings: Liveborn female Mild adhesive disease of rectus abdominis fascia to underlying musculature Mild adhesive disease of vesicouterine reflection Unremarkable uterus, bilateral fallopian tubes and ovaries Procedure Name: Repeat Delivery Procedure Description: Patient was taken to the operating room with IV running. She received ancef in preoperative prophylaxis. Spinal anesthesia was administered. Lew catheter was inserted. She was prepped and draped in the usual sterile fashion. Anesthesia was tested and found to be adequate. A low-transverse skin incision was made with a scalpel and carried through to the underlying layer of fascia with the scalpel. The subcutaneous fat was dissected off the underlying fascia with Bovie. The fascia was nicked in the midline with a scalpel, and this incision was extended laterally with scissors. The rectus muscles were in the midline. Peritoneum was identified and entered bluntly. Digital sweep confirmed site of peritoneal entry to free of intraabdominal adhesions. Bovie and traction were used to widen this opening laterally. Ari O retractor was inserted and tightened down, providing excellent visualization of the lower uterine segment. The bladder reflection was found to be advanced along the lower uterine segment, where a bladder flap was developed with sharp and blunt dissection to well below planned site of hysterotomy. Low-transverse uterine incision was made with a scalpel. Incision was widened bluntly. The 's head was grasped through the hysterotomy and delivered with the help of fundal pressure. The remainder of the body delivered without incident. Cord was clamped and cut after 30 seconds. Infant was handed off to attending nurses. details: - Liveborn female fetus at 0758 - weight 3295g - APGARs were 9 and 9 at 1 and 5 minutes respectively The placenta failed to deliver with gentle traction on the cord. Manual removal was completed, where placental appeared intact. The uterus was cleaned of all clots and debris with the dry lap pad x2. Atony was noted, where IV pitocin and IM Methergine were requested and administered. The hysterotomy was reapproximated with 0 Vicryl in a running, locked fashion. Second layer of the same suture was used in imbricating fashion to obtain hemostasis. Oozing serosal edges were addressed with electrocautery. Excellent hemostasis was noted, excellent tone noted. The adnexa were examined and noted to be normal in appearance. The cul-de-sac and gutters were cleansed with dampened laparotomy sponge, removing any further clots and debris. The Ari O retractor was removed. The hysterotomy was reexamined and found to be hemostatic. Tori was applied across hysterotomy. The rectus muscles were sequentially grasped, elevated, examined and made hemostatic with electrocautery as needed. The fascia was reapproximated with 0 PDS in a running fashion. Subcutaneous fat was irrigated and Bovie used on oozing vessels. The subcutaneous fat was reapproximated with 2 0 Vicryl suture. The skin was closed with a subcuticular stitch of 3-0 Monocryl. Surgical glue was applied above this. Patient tolerated procedure well was taken to recovery area in stable condition. Complications: None Pathology: specimen obtained, sent to pathology Surgery Debrief Performed: Yes Condition: stable Disposition: floor
--- NOTE | 2025-07-23 09:16 | P.ANES_ITS ---
Anesthesia Charges Start Date/Time Anesthesia Start Date: 07/23/25 Anesthesia Start Time: 07:20 Stop Date/Time Anesthesia Stop Date: 07/23/25 Anesthesia Stop Time: 09:10 Coding CPT Codes CPT Codes: ANESTH CS DELIVERY - 72454 ([id number]) P2 - PATIENT W/MILD SYST DISEASE, QK - COURT ADVOCATE 2-4 CNCRNT ANES PROC
--- NOTE | 2025-07-23 09:16 | W.ANESCHARGE ---
Anesthesia Charges Start Date/Time Anesthesia Start Date: 07/23/25 Anesthesia Start Time: 07:20 Stop Date/Time Anesthesia Stop Date: 07/23/25 Anesthesia Stop Time: 09:10 Coding CPT Codes CPT Codes: ANESTH CS DELIVERY - 44173 ([id number]) P2 - PATIENT W/MILD SYST DISEASE, QK - SPOOL SALVAGER 2-4 CNCRNT ANES PROC
--- NOTE | 2025-07-23 09:17 | W.PM.NB ---
Nerve Block Nerve Block Time Seen by Provider: 09:00 Date Seen: 07/23/25 Type of block requested by surgeon for post-operative analgesia: TAP Side: bilateral Time out performed: Yes Verification of patient name: Yes Verification of date of : Yes Site marking: site marked Name of person performing procedure: Kylee Moore Continuous monitoring Was continuous monitoring of O2 sat, B/P, clinical research monitor, recorded every 15 minutes?: Yes Procedure Checklist: sterile prep, needles and gloves Ultrasound guided. Images saved: Yes Medications given in 5ml increments after negative aspiration: Marcaine %: 0.25 mL: 30 Needle gauge: 20 and Exparel mL: 10 Needle gauge: 20 Patient tolerated procedure well: Yes Block Charges Block Charge (with Pro Fee): TAP Bilateral Use of Ultrasound Machine for Block: Yes- US Guidance/pain block
--- NOTE | 2025-07-23 09:20 | P.ANES_ITS ---
Anesthesia Charges Start Date/Time Anesthesia Start Date: 07/23/25 Anesthesia Start Time: 07:20 Stop Date/Time Anesthesia Stop Date: 07/23/25 Anesthesia Stop Time: 09:10 Coding CPT Codes CPT Codes: ANESTH CS DELIVERY - 01444 ([id number]) QK - BEAMER HELPER 2-4 CNCRNT ANES PROC, QX - SLOT FLOOR PERSON SVC W/ MD MED DIRECTION, P2 - PATIENT W/MILD SYST DISEASE
--- NOTE | 2025-07-23 09:20 | W.ANESCHARGE ---
Anesthesia Charges Start Date/Time Anesthesia Start Date: 07/23/25 Anesthesia Start Time: 07:20 Stop Date/Time Anesthesia Stop Date: 07/23/25 Anesthesia Stop Time: 09:10 Coding CPT Codes CPT Codes: ANESTH CS DELIVERY - 28178 ([id number]) QK - MANAGER DIVISION 2-4 CNCRNT ANES PROC, QX - BUSINESS SERVICES CLERK SVC W/ MD MED DIRECTION, P2 - PATIENT W/MILD SYST DISEASE
[2025-07-24] VITALS (8 sets, daily range): BP systolic 107–121; BP diastolic 69–79; PULSE 82–89; RESP 16–18; TEMP 36.3–36.8; O2SAT 98
[2025-07-24 06:52] LABS: Hemoglobin* 10.2 gm/dL (12.0-16.0)
--- NOTE | 2025-07-24 07:47 | P.OBPN_ITS ---
OB - PN:Subj Subjective Time Seen by Provider: 12:45 Date Seen: 07/24/25 Patient comments OB post-: pain well controlled, tolerating diet and flatus present status: and doing well [place] feeding status: exclusively Narrative: Mercedes is a 30 year old who was admitted for scheduled repeat and proceeded to have an uncomplicated ?. The patient feels well.?Pain is well controlled with current medications. She has no new complaints.? Urinary output is adequate and she is voiding without difficulty.? Has a good appetite, is tolerating a general diet, is passing flatus, and has not had a bowel movement.? Has scant amount of rubra lochia.? She is ambulating. She is and reports it is going well.?Mood is stable. Partner at bedside. OB - PN: Obj Exam Physical Exam: Vital signs: Temp Pulse Resp BP Pulse Ox O2 Del Method 98.2 F 82 18 118/79 98 Room Air 07/24/25 04:00 07/24/25 04:00 07/24/25 04:19 07/24/25 04:00 07/24/25 04:00 07/24/25 04:00 Narrative: GENERAL APPEARANCE:? normal affect, alert, no distress MOOD:? appropriate CHEST:? clear to auscultation HEART:? regular rate and rhythm ABDOMEN:? soft, non-tender the uterine fundus firm, midline and at Umbilicus, appropriate for the stage of recovery. PERINEUM:? deferred EXTREMITIES:? normal and trace edema Incision: low transverse cesearean incision covered clean, dry and intact ABD pad. OB - PN: Obj Data Labs Labs: Laboratory Results - last 24 hr 07/23/25 06:32 Blood Type O Negative Antibody Screen NEGATIVE Crossmatch (AHG) See Detail OB - PN: A/P Delivery Assessment and Plan (1) Status post delivery: Problem details: David Olivo. 7#15oz, arrest of descent. Status: Acute (2) Lactating mother: Status: Acute Plan day: 1 Plan: routine care Comments: PP day #1 Routine care May see as desired Anticipate discharge tomorrow Andressa Guerrero APRN, BELÉN, was present for visit and have reviewed and agree with documentation by the Certified Nurse Midwifery Student.?
[2025-07-24] MEDS: SODIUM CHLORIDE 0.9 % (FLUSH) 10 ML SYRINGE IVF (10:13)
[2025-07-24] MEDS: DOCUSATE SODIUM 100 MG CAPSULE PO (11:49)
[2025-07-24] MEDS: ACETAMINOPHEN 500 MG TABLET 1000 MG PO (13:48)
[2025-07-24] MEDS: IBUPROFEN 600 MG TABLET PO (23:00)
[2025-07-25] MEDS: ACETAMINOPHEN 500 MG TABLET 1000 MG PO (01:57)
[2025-07-25 03:55] VITALS: BP 124/77; PULSE 89; RESP 18; TEMP 36.6; O2SAT 97
[2025-07-25 08:23] VITALS: BP 119/76; PULSE 90; RESP 16; TEMP 36.7; O2SAT 96
[2025-07-25] MEDS: IBUPROFEN 600 MG TABLET PO (08:49)
[2025-07-25] MEDS: DOCUSATE SODIUM 100 MG CAPSULE PO (08:49)
--- NOTE | 2025-07-25 09:21 | PM.OBDSVD1 ---
DS: Providers Provider Date Seen: 07/25/25 Date of admission: 07/23/25 05:46 Primary care physician: Not a Local Provider Admitting Clinician: Magui Hobbs MD Attending Physician on discharge: Mary Tello CNM Date of Discharge: 07/25/25 DS: Diagnosis Discharge Diagnosis (1) Status post delivery: Status: Acute Problem details: David Olivo. 7#15oz, arrest of descent. (2) Lactating mother: Status: Acute (3) care and examination immediately after delivery: Status: Acute Exam Narrative: Exam Narrative: VSS. ?Afebrile GENERAL APPEARANCE: ?normal affect, alert, no distress MOOD: ?appropriate HEENT: normocephalic, neck supple, full ROM CHEST: ?Symmetrical chest wall movement. ?Normal respiratory effort. ?Clear to auscultation HEART: ?regular rate and rhythm ABDOMEN: ?soft, non-tender. Uterine fundus is firm, at Umbilicus, Midline and is appropriate for the stage of recovery. ?Bowel sounds present. EXTREMITIES: ?normal and no edema SKIN: warm, dry. ? ?Incision clean/dry/well approximated. ?No signs of infection noted. Const: Vital Signs, click to edit/add: Vital Signs - 24 hr 07/24/25 13:45 07/24/25 20:06 07/25/25 03:55 Temperature 97.3 F L 97.6 F 97.9 F Pulse Rate [Pulse Oximeter] 84 88 89 Respiratory Rate 16 16 18 Blood Pressure [Ri ght Arm] 118/73 121/76 124/77 Pulse Oximetry 98 98 97 Oxygen Delivery Me thod Room Air Room Air Room Air 07/25/25 08:23 Temperature 98.1 F Pulse Rate [Pulse Oximeter] 90 Respiratory Rate 16 Blood Pressure [Ri ght Arm] 119/76 Pulse Oximetry 96 Oxygen Delivery Me thod Room Air Documenting provider has reviewed patient's vital signs: yes OB - DS: Summary Hospital Course Hospital Course: Mercedes is a 30 y.o. who was admitted to [facility] for scheduled repeat section . ?She had an uncomplicated .?The patient feels well. ?The pain is well controlled with current medications. ?She has no new complaints. ?She is breast feeding and reports things are going well.? the patient has done well.? Vitals have been stable.? She has remained afebrile.? Has a good appetite, is tolerating a general diet. ?She is voiding without difficulty.? She is passing gas and has not had a bowel movement.? She is ambulating and denies any dizziness.? Has Small amount of rubra lochia. ?She is planning nothing for prevention. Peripartum Data Infant delivery method: Repeat Section Procedures: Procedures Operation Date: 07/23/25 07:15 Actual Procedure Side Surgeon p Repeat Section Val Macario MD complications: none Infant Gender: Female Infant Discharge Plan: Home Status at Discharge Functional status at discharge: independent ambulation Overall status at discharge: patient is progressing back to baseline Time Spent with Patient Time attestation: Total time spent providing and/or coordinating discharge services: Time spent: Less than 30 minutes Discharge Plan Discharge Disposition: Home, Self-Care Date of Admission: 07/23/25 05:46 Attending Provider on Discharge: Mary Tello Primary Care Provider: Provider,Not a Local Condition: Stable Anticipated Discharge Date/Time: 07/25/25 12:00 Discharge Medications: New acetaminophen 500 mg Tablet 1,000 mg PO Q6H PRN (Reason: pain/fever) Qty: 0 0RF docusate sodium 100 mg Capsule 100 mg PO DAILY Qty: 90 0RF ibuprofen 600 mg Tablet 600 mg PO Q6H PRN (Reason: Pain) Qty: 60 0RF oxycodone 5 mg Tablet 5 - 10 mg PO Q4H PRN (Reason: Pain) Qty: 10 0RF Continued DHA 200 mg capsule 200 mg PO DAILY fluoxetine 40 mg capsule 40 mg PO DAILY Qty: 90 0RF buspirone 15 mg tablet 15 mg PO BID Qty: 60 0RF omeprazole 20 mg capsule,delayed release(DR/EC) 20 mg PO QDAY 84 Days Qty: 84 0RF Discharge Orders: Discharge Order (Routine); Ordered 07/25/25 Ordered By: Mary Tello Patient Education: Bupivacaine Liposome (By injection), OB Over the Counter Medication Information, OB /Breast Feeding Additional Instructions: Discharge instructions were reviewed with the patient including signs and symptoms of infection and home going medications Lifting Restrictions: 20 pounds for 6 weeks No not submerge incision under water X 2 weeks? Nothing vaginally for 6 weeks: no tampons or intercourse Do not drive while taking narcotic pain medication(s) Off Work or School for 8 weeks 2-week visit: incision check, discuss infant feeding concerns, review control options and screen for anxiety/depression. 6-week visit for an annual exam. consultation services are available to all mothers and babies for the first year after delivery.? To make an appointment, please call [phone]. Activity Level: Activity as Tolerated Discharge Diet: Regular Follow Up Appointments: [facility] [Provider Group] Forms: [facility] Info Instructions
== END 2025-07-25 12:20 | disposition home or self-care (01) | DRG 540 ==
PROVIDERS: Obstetrics & Gynecology; Admitting Provider Obstetrics & Gynecology; Visit Provider Obstetrics & Gynecology
PROC: 10D00Z1 Extraction of Products of Conception, Low, Open Approach (ICD-10-PCS; CPT 59514; principal; 2025-07-23 07:15)
DX: O34.211 Maternal care for low transverse scar from previous cesarean delivery (principal); G89.18 Other acute postprocedural pain; K21.9 Gastro-esophageal reflux disease without esophagitis; O99.344 Other mental disorders complicating childbirth; F41.9 Anxiety disorder, unspecified; F32.A Depression, unspecified; Z3A.38 38 weeks gestation of pregnancy; Z37.0 Single live birth
CPT/HCPCS: 01961; 36415; 64488; 76942; 85018; 86592; 86850; 86900; 86901; 86922; 88307; A4314; A9270; J0665; J0666; J0690; J1885; J2210; J2274; J2371; J2405; J2590